=== PATIENT | male | born 1955 | race Caucasian/White ===

== ENCOUNTER 2023-01-07 12:00 | Emergency (ER) | payer MEDICARE, SELFPAY ==
[2023-01-07 12:03] VITALS: BP 134/83; PULSE 95; RESP 16; TEMP 37.1; O2SAT 99
--- NOTE | 2023-01-07 12:49 | ED.GENADUL_ITS ---
Discharge Plan Disposition Patient Disposition: Home Condition: Improving Discharge Details Clinical Impression: Anxiety Primary Care Provider: None,None ED Provider: Sameer Wasserman Home Meds and New Rx's Prescriptions: New clonazepam 0.5 mg tablet 0.5 mg PO ONCE PRN (Reason: panic attack(s)) Qty: 10 0RF Discharge Instructions Instructions: Anxiety (ED) Additional Instructions: Please follow-up with primary care team. Please return to the emergency department for any worsening symptoms Medical Decision Making 67-year-old male history of chronic peripheral neuropathy involving feet, has been self-medicating with tincture of CBD for some time, believes it may have caused her agitated state last week, she was hyperactive and cannot sleep, is having residual insomnia and anxiety. Does appear mildly dehydrated frail with dry skin. Patient is alert oriented interactive appropriate no SI no HI no delusions or hallucinations. Consider medication induced insomnia versus pain induced insomnia versus PTSD versus anxiety low suspicion for active intoxication or psychosis low suspicion for intracranial process such as hemorrhage edema or mass. Will obtain basic labs will provide hydration anxiolysis close reassessment 15: 23 patient resting comfortably feeling much better after meds and fluids. Spoke with patient's home health wellness nurse Rani phone number [phone] who will be visiting patient tomorrow for home visit. We are arranging primary care follow-up and he will be given a prescription for use as a rescue therapy for panic attacks. HPI General Date/Time Provider Initiated Documentation: 01/07/23 12:14 . HPI Narrative: 67-year-old male presents endorsing fatigue and chronic peripheral neuropathy. Has been taking hemp tincture and cannabis to self treat chronic peripheral neuropathy of bilateral feet. Was taking so much supplementation that he developed an agitated state last week in which he was hyperactive cannot sit still and very anxious. Denies SI denies HI. Lives alone, feels safe at home. Endorses restricted diet usually eats protein bars and drinks protein shake. Feeling better than he was last week however has not been able to rest due to re sidual anxiety and chronic neuropathy. Related Data Home Medications Medication Instructions Recorded Confirmed clonazepam 0.5 mg tablet 0.5 mg PO ONCE PRN panic attack(s) 01/07/23 #10 tabs Previous Rx's Medication Instructions Recorded clonazepam 0.5 mg tablet 0.5 mg PO ONCE PRN panic attack(s) 01/07/23 #10 tabs General Stated Complaint: Anxiety JERAMY: 3 Review of Systems Narrative: Review of Systems Constitutional: negative Eyes: negative ENT: negative Cardiovascular: negative Respiratory: negative Gastrointestinal: negative : negative Musculoskeletal: negative Skin: negative Neurologic: Neuropathy, insomnia Psych: negative PFSH All Active Problems (Updated 01/07/23 @ 15:26 by Sameer Wasserman MD) Anxiety (Chronic) Social History Smoking risk assessment performed?: No Exam Narrative Exam Narrative: Physical Examination General: alert, awake, cooperative, resting comfortably, no acute distress HEENT: normocephalic, atraumatic; PERRL, EOM intact, conjunctiva normal; no nasal discharge; moist mucous membranes, oral and pharyngeal mucosa normal, tolerating secretions Neck: supple, trachea midline; full ROM Chest: normal to inspection Respiratory: normal respiratory effort, speaking in full sentences, clear to auscultation, no wheezing, rales or rhonchi Cardiac: regular rate, regular rhythm, S1S2 intact, no murmurs rubs or gallops GI: abdomen soft, non-tender, non-distended; no palpable mass or hepatosplenomegaly Skin: dry Neuro: AAOx3, normal speech, moving all extremities Psych: Appropriate mood and affect; no SI, no HI Course Vital Signs Vital signs: Vital Signs Temperature 37.1 C 01/07/23 12:03 Pulse 95 H 01/07/23 12:03 Respiratory Rate 16 01/07/23 12:03 Blood Pressure 134/83 01/07/23 12:03 Pulse Oximetry 99 01/07/23 12:03 Temperature 37.1 C 01/07/23 12:03 Temperature Source Skin 01/07/23 12:03 Pulse 95 H 01/07/23 12:03 Respiratory Rate 16 01/07/23 12:03 Blood Pressure 134/83 01/07/23 12:03 Pulse Oximetry 99 01/07/23 12:03 Oxygen Delivery Method Room Air 01/07/23 12:03 Oxygen Flow Rate 0 01/07/23 12:03 Pain Level 10 01/07/23 12:03
[2023-01-07 12:57] LABS: Abs Immature Grans 0.05 10^3/uL (0.0-0.06); Absolute Basophil Count 0.01 10^3/uL (0.0-0.2); Absolute Eosinophil Count 0.06 10^3/uL (0.0-0.7); Absolute Lymphocyte Count 0.81 10^3/uL (1.2-3.4); Absolute Monocyte Count 0.36 10^3/uL (0.1-0.8); Absolute Neutrophil Count 3.62 10^3/uL (1.2-6.7); Basophils % 0.2; Eosinophils % 1.2; HCT 38.1 % (40.0-50.0); HGB 13.6 g/dL (13.5-17.5); Lymphocytes % 16.5; MCH 31.6 pg (27.0-33.0); MCHC 35.7 % (32.0-36.0); MCV 89 fL (80-95); MPV 9.5 fL (8.0-11.0); Monocytes % 7.3; Neutrophils % 73.8; Platelet Count 152 10^3/uL (130-400); RDW 13.5 % (11.8-14.1); RDW-SD 43.4 fL; WBC 4.91 10^3/uL (4.4-10.8)
[2023-01-07] MEDS: ACETAMINOPHEN 1,000 MG/100 ML BTL 400 MG IVPB (13:00)
[2023-01-07] MEDS: LORazepam 2 MG/ML VIAL 1 MG IVP (13:02)
[2023-01-07] MEDS: Normal Saline 1,000 ML 1000 ML IV (13:03)
[2023-01-07 13:12] LABS: ALT 51 U/L (16-63); AST 37 U/L (15-37); Albumin 3.3 g/dL (3.4-5.0); Alkaline Phosphatase 104 U/L (46-116); Anion Gap 6.6 mmol/L (3-11); BUN 17 mg/dL (7-18); Bilirubin, Total 0.4 mg/dL (0.2-1.0); CO2 26.4 mmol/L (21.0-32.0); CREATININE 0.7 mg/dL (0.70-1.30); Calcium 8.9 mg/dL (8.5-10.1); Chloride 98 mmol/L (98-107); Estimated GFR 100.99 (mL/min/1.73m2); Glucose 446 mg/dL (74-106); Potassium 3.9 mmol/L (3.5-5.1); Sodium 131 mmol/L (136-145); Total Protein 6.7 g/dL (6.4-8.2)
[2023-01-07 15:39] VITALS: BP 134/89; PULSE 78; RESP 18; TEMP 36.7; O2SAT 99
--- NOTE | 2023-01-08 11:51 | NUR.NOTE ---
Nursing Note: Accessed pt chart to check the disposition of discharge paperwork and prescription.
--- NOTE | 2023-01-08 12:03 | NUR.NOTE ---
Nursing Note: in chart to check on prescription
--- NOTE | 2023-01-08 16:11 | PDOC.CMACT ---
Date of service: 01/08/23 Time of Service: 16:11 Care Management Activity Note Activity Note Text Activity Note Text: José Miguel is seen in the ED for anxiety. At the request of ED provider, LINDSEY coordinates a referral to Clover Gonzales MD, of [facility], t-doc, to assist José Miguel in obtaining a follow up appointment and in establishing care with a PCP. He has Medicare for insurance.
== END 2023-01-07 15:50 | disposition home or self-care (01) ==
PROVIDERS: Emergency Provider Emergency Medicine
DX: F41.9 Anxiety disorder, unspecified (principal); G62.9 Polyneuropathy, unspecified
CPT/HCPCS: 80053; 96361; 96374; 96375; 85025; 99282; 99283; J0131; J2060

== ENCOUNTER 2023-01-16 12:16 | Emergency (ER) | payer MEDICARE, SELFPAY ==
[2023-01-16 12:19] VITALS: BP 126/85; PULSE 102; RESP 16; TEMP 36.7; O2SAT 98
[2023-01-16 12:53] VITALS: RESP 18
--- NOTE | 2023-01-16 12:53 | W.ED.GENAD ---
Discharge Plan Discharge Details Chief Complaint: Anxiety Primary Care Provider: Samantha,Local ED Provider: Jayson Spain Home Meds and New Rx's Prescriptions: No Action clonazepam 0.5 mg tablet 0.5 mg PO ONCE PRN (Reason: panic attack(s)) Qty: 10 0RF Medical Decision Making Patient is medically cleared for for psychiatric evaluation using smart criteria. Patient was evaluated by mental health services. He contracted for safety. He will be discharged home. He will follow-up with mental health services on as planned HPI General Date/Time Provider Initiated Documentation: 01/16/23 12:31. HPI Narrative: 67 male present to the emergency room via EMS because of anxiety. He states that he has to deal with chronic pain secondary to his neuropathy of his legs. And as such took too much hemp extract earlier this month with me him having an anxiety attack. Since then he has been having anxiety. He was seen emergency department 3 days ago for lower similar symptoms. Brought in by mental health services were involved at the time. The patient states that he really needs to talk to both services again because he cannot deal with anxiety. Related Data Home Medications Medication Instructions Recorded Confirmed clonazepam 0.5 mg tablet 0.5 mg PO ONCE PRN panic attack(s) 01/07/23 01/16/23 #10 tabs Previous Rx's Medication Instructions Recorded clonazepam 0.5 mg tablet 0.5 mg PO ONCE PRN panic attack(s) 01/07/23 #10 tabs Allergies Allergy/AdvReac Type Severity Reaction Status Date / Time No Known Allergies Allergy Unverified 01/16/23 12:23 General Stated Complaint: Anxiety JERAMY: 4 Review of Systems Narrative: 10 point review of systems is negative unless otherwise specified in the review of systems [facility] All Active Problems (Updated 01/07/23 @ 15:26 by Sameer Wasserman MD) Anxiety (Chronic) Social History Smoking/Tobacco Use Status: Current every day Tobacco Type: cigarettes Smoking risk assessment performed?: Yes Alcohol Intake: never Drug use: Daily Substance use type: marijuana Exam Narrative Exam Narrative: Awake alert oriented x3, no acute distress pleasant cooperative. Thin PERRL EOMI MMM Chest is clear to auscultation bilaterally Heart regular rhythm rate Skin no rashes Neuro 2-12 grossly intact Psych good affect. Positive anxiety. Course Vital Signs Vital signs: Vital Signs Temperature 36.7 C 01/16/23 12:19 Pulse 102 H 01/16/23 12:19 Respiratory Rate 16 01/16/23 12:19 Blood Pressure 126/85 01/16/23 12:19 Pulse Oximetry 98 01/16/23 12:19 Temperature 36.7 C 01/16/23 12:19 Temperature Source Temporal Artery Scan 01/16/23 12:19 Pulse 102 H 01/16/23 12:19 Respiratory Rate 16 01/16/23 12:19 Respiratory Effort Normal 01/16/23 12:22 Blood Pressure 126/85 01/16/23 12:19 Blood Pressure Position Sitting 01/16/23 12:19 Pulse Oximetry 98 01/16/23 12:19 Oxygen Delivery Method Room Air 01/16/23 12:19 Oxygen Flow Rate 0 01/16/23 12:19 Pain Level 0 01/16/23 12:19
== END 2023-01-16 15:34 | disposition home or self-care (01) ==
PROVIDERS: Emergency Provider Emergency Medicine
DX: F41.9 Anxiety disorder, unspecified (principal); G57.93 Unspecified mononeuropathy of bilateral lower limbs; G89.29 Other chronic pain
CPT/HCPCS: 99283

== ENCOUNTER 2023-01-19 08:10 | Emergency (ER) | payer MEDICARE, MEDICAID, SELFPAY ==
[2023-01-19] VITALS (8 sets, daily range): BP systolic 105–126; BP diastolic 60–76; PULSE 83–109; RESP 13–23; O2SAT 98–99
--- NOTE | 2023-01-19 08:10 | W.ED.GENAD ---
Discharge Plan Disposition Patient Disposition: Home Discharge Details Clinical Impression: Anxiety, Sinus tachycardia, Normocytic anemia, Acute hyperglycemia, Ketonuria, Glucosuria Primary Care Provider: Samantha,Local ED Provider: Danielito Jamil Home Meds and New Rx's Prescriptions: New hydroxyzine HCl 25 mg tablet 25 mg PO BID PRNQty: 10 0RF Discontinued clonazepam 0.5 mg tablet 0.5 mg PO ONCE PRN (Reason: panic attack(s)) Qty: 10 0RF Patient Comments: Prescription ended Discharge Instructions Instructions: Anxiety (ED) Additional Instructions: Please read all of the information that accompanies these instructions. You were seen in the emergency department for your anxiety. Your urinalysis showed no sign of infection. Please schedule an appointment with your primary care provider later this week. Please return to the emergency department if develop any shortness of breath or fevers. A prescription has been sent in for hydroxyzine which is a different medicine to take for anxiety. Medical Decision Making This is a cachectic, overall well-appearing normothermic and mildly tachycardic 67-year-old male with 3 recent visits in the setting of anxiety. Patient has no suicidal nor homicidal ideation. No indication for behavioral health screening. He was reportedly hyperglycemic and has reportedly a remote history of diabetes so will ensure that he does not have DKA. On the monitor he is in a sinus tachycardia and given no chest pain no indication for ECG. No pain out of proportion to suggest necrotizing soft tissue infection. No cough nor shortness of breath nor hypoxia to suggest pneumonia. No nausea nor vomiting to suggest intra-abdominal infection soft nontender abdomen so we will defer CT scan at this point in time. Patient reports that he does have a primary care provider with whom he plans to have a follow-up appointment in the coming week. He has not had anything to eat for the past several days and has only had popped tarts so we will provide him with a regular diet and reassess. He is on a short course of outpatient clonazepam so we will provide him with 1 dose of clonazepam now but discharged him on hydroxyzine given age. Given urinary frequency will obtain a urinalysis. According to [facility], PDMP record, patient has 1 prescription of clonazepam written approximately 12 days ago for 10 tablets. Given this short duration and low-dose and the patient's overall presentation my suspicion is exceedingly low for withdrawal from benzodiazepines. 9 AM CBC with very mild normocytic anemia but no leukocytosis nor thrombocytopenia. 9:36 AM Basic metabolic panel with very mild hyponatremia and mildly elevated BUN at 29. Normal bicarbonate. No anion gap. Not consistent with DKA. Hyperglycemia not 423 mg/dL. Mild hypokalemia. Patient and I discussed avoiding sweets and eating a broad range of diets. 10 AM Urinalysis showed ketonuria and glucosuria but nitrite negative. Tachycardia resolved with oral and IV fluids. Patient understood return indications including inability to tolerate p.o. any chest pain or any fevers. Sent him a short course of hydroxyzine and discharged with empiric trial of expectant outpatient management. Chronic conditions affecting the care of the patient: Anxiety History obtained from an outside historian: Paramedics External [place] [facility] [place] Medications: Clonazepam Social determinants of health affecting disposition: Lives alone has not recently seen a PCP Management discussed with: N/A Treatment/interventions considered: Hospitalization but deferred Response to therapies provided: Improved following clonazepam HPI General Date/Time Provider Initiated Documentation: 01/19/23 08:28. HPI Narrative: This is a 67-year-old male with several recent visits in the setting of anxiety now arriving via EMS in the setting of anxiety. Patient reportedly ran out of his clonazepam this morning. He is due to see a primary care provider in the next week. He reports that he has been increasingly anxious recently. He has been smoking cannabis and eating pop tarts. He says that when he closes his eyes he experiences waves of paranoia. He denies suicidal homicidal ideation. Paramedics report that his fingerstick blood glucose was 447. He is a daily tobacco smoker but only occasionally drinks ethanol. He denies IV drugs. He said no recent fevers cough chills chest pain nausea nor vomiting. He does say that he has been urinating more frequently recently with decreased volume of urination. Related Data Home Medications Medication Instructions Recorded Confirmed hydroxyzine HCl 25 mg tablet 25 mg PO BID PRN #10 tabs 01/19/23 Previous Rx's Medication Instructions Recorded hydroxyzine HCl 25 mg tablet 25 mg PO BID PRN #10 tabs 01/19/23 Allergies Allergy/AdvReac Type Severity Reaction Status Date / Time No Known Allergies Allergy Unverified 01/19/23 08:17 General JERAMY: 4 PFSH All Active Problems (Updated 01/19/23 @ 10:06 by Danielito Jamil MD) Anxiety (Chronic) Anxiety (Chronic) Sinus tachycardia (Acute) Normocytic anemia (Acute) Acute hyperglycemia (Acute) Ketonuria (Acute) Glucosuria (Acute) Social History Smoking/Tobacco Use Status: Current every day Tobacco Type: cigarettes Smoking risk assessment performed?: Yes Alcohol Intake: never Drug use: Daily Substance use type: marijuana Do you feel safe at home: Yes Do you feel safe in your relationship?: Yes Exam Narrative Exam Narrative: General: Well-appearing in no acute distress speaking in complete sentences. Head: Normocephalic, atraumatic. Eye: Pupils equal, round reactive to light. Extraocular eye movements intact. No conjunctival injection. No scleral icterus. Ear, nose, mouth, throat: Grossly normal inspection. Normal voice, handling secretions normally. Neck: Trachea midline. Cardiovascular: Well-perfused distal extremities. Rapid regular rate. Warm distal extremities with 2+ PT and DP pulses. Respiratory: Nonlabored respiration. Clear lungs bilaterally. Gastrointestinal: Nondistended abdomen. Musculoskeletal: No edema. Moving all 4 extremities spontaneously. No significant lower extremity pitting edema. Skin: Normal for age and race, grossly normal temperature and turgor. No acute rash. Neurologic: Alert and appropriate, no apparent acute deficits. Psychiatric: Mood and manner are appropriate. Grooming and personal hygiene are appropriate.
[2023-01-19 09:00] LABS: Abs Immature Grans 0.03 10^3/uL (0.0-0.06); Absolute Basophil Count 0.02 10^3/uL (0.0-0.2); Absolute Eosinophil Count 0.03 10^3/uL (0.0-0.7); Absolute Monocyte Count 0.37 10^3/uL (0.1-0.8); Absolute Neutrophil Count 3.86 10^3/uL (1.2-6.7); Basophils % 0.4; Eosinophils % 0.6; HCT 38.1 % (40.0-50.0); HGB 13.4 g/dL (13.5-17.5); Immature Grans % 0.6; Lymphocytes % 17.3; MCHC 35.2 % (32.0-36.0); MCV 91 fL (80-95); MPV 9.5 fL (8.0-11.0); Monocytes % 7.1; Platelet Count 136 10^3/uL (130-400); RBC 4.19 10^6/uL (4.36-5.78); RDW 13.4 % (11.8-14.1); RDW-SD 45.2 fL; WBC 5.21 10^3/uL (4.4-10.8)
[2023-01-19] MEDS: Normal Saline 1,000 ML 500 ML IV (09:00)
[2023-01-19] MEDS: clonazePAM 0.5 MG TAB PO (09:00)
[2023-01-19 09:32] LABS: Anion Gap 9.6 mmol/L (3-11); BUN 29 mg/dL (7-18); CO2 25.4 mmol/L (21.0-32.0); CREATININE 0.7 mg/dL (0.70-1.30); Calcium 8.4 mg/dL (8.5-10.1); Chloride 98 mmol/L (98-107); Estimated GFR 100.99 (mL/min/1.73m2); Glucose 423 mg/dL (74-106); Potassium 4.2 mmol/L (3.5-5.1); Sodium 133 mmol/L (136-145)
[2023-01-19 09:58] LABS: Bilirubin Negative (Negative); Blood Negative (Negative); Clarity Clear (Clear); Glucose >=1000 mg/dL (Negative); Ketones 15 mg/dL (Negative); Leukocyte Esterase Negative (Negative); Nitrite Negative (Negative); Urobilinogen 0.2 mg/dL (Up to 0.2)
== END 2023-01-19 10:35 | disposition home or self-care (01) ==
PROVIDERS: Emergency Provider Emergency Medicine
DX: F41.9 Anxiety disorder, unspecified (principal); R00.0 Tachycardia, unspecified; D64.9 Anemia, unspecified; E16.1 Other hypoglycemia; R82.4 Acetonuria; R81 Glycosuria; Z72.0 Tobacco use
CPT/HCPCS: 80048; 96360; 96361; 99284; 81003; 85025

== ENCOUNTER 2023-02-02 08:54 | Emergency (ER) | payer MEDICARE, MEDICAID, SELFPAY ==
[2023-02-02] VITALS (31 sets, daily range): BP systolic 113–153; BP diastolic 69–111; PULSE 90–104; RESP 16–18; TEMP 36.4–36.8; O2SAT 79–100
--- NOTE | 2023-02-02 08:55 | W.ED.GENAD ---
Discharge Plan Discharge Details Chief Complaint: Anxiety Clinical Impression: Anxiety, Uncontrolled type 2 diabetes mellitus with hyperglycemia Primary Care Provider: None,None ED Provider: Danielito Jamil Home Meds and New Rx's Prescriptions: No Action hydroxyzine HCl 25 mg tablet 25 mg PO BID PRNQty: 10 0RF Medical Decision Making This is a cachectic, overall well-appearing normothermic and mildly tachycardic 67-year-old male with 4 recent visits in the setting of anxiety.? Patient has no suicidal nor homicidal ideation.? Given recent visit last month I spoke with Heather from [employer] and have asked her to complete a screening exam.? He was reportedly hyperglycemic and has reportedly a remote history of diabetes so will ensure that he does not have DKA.? On the monitor his tachycardia resolved. We will provide him with a regular diet but defer ECG.? No pain out of proportion to suggest necrotizing soft tissue infection.? No cough nor shortness of breath nor hypoxia to suggest pneumonia.? No nausea nor vomiting to suggest intra-abdominal infection so we will defer CT scan at this point in time.? Patient reports that he does have a primary care provider with whom he plans to have a follow-up appointment in the coming week.? He has not had anything to eat for the past several days so we will provide him with a regular diet and reassess.? He is on a short course of outpatient hydroxyzine so we will redose this in the ED.?No dysuria nor urinary frequency to suggest benefit from urinalysis.? 9:35 AM CBC with no anemia thrombocytopenia nor leukocytosis. Venous blood gas with no acidemia nor hypercarbia. Tachycardia resolved without intervention in the ED.Basic metabolic panel with very mild hyponatremia and hypokalemia. No anion gap. Mildly elevated BUN similar to prior. Hyperglycemia but normal bicarbonate not consistent with DKA. Normal calcium. 10:15 AM I spoke with Ilya Vera from [facility] [employer] who reported the patient would be voluntary for placement. He will attempt to find the patient geriatric placement. We will complete a med rec. 10:25 AM Patient reportedly takes no medications beyond vitamin infused hemp and cannabis daily. Given his hyperglycemia and lack of PCP will add on an A1c to determine whether or not patient requires initiation of treatment for diabetes with metformin. 11:15 AM Patient's hemoglobin A1c returned at 12.2%. He does not have a PCP in our system nor in the [facility] [place]. I have asked health loading unit operator Lindsay to call on-call PCP to best initiate treatment for his type 2 diabetes with hyperglycemia but not DKA. 11:35 AM I was in touch with a nurse from from Dr. Gonzales's office. She will have a provider call me back. This patient is reportedly going to be seen by Dr. Milton on Thursday of this week. 12:15 PM I spoke with Dr. Milton a primary care provider. She advised starting the patient on 5 units of daily glargine along with metformin 500 mg twice daily. I will ask health loading unit operator Lindsay to have a certified breastfeeding educator come and see the patient while he was in the ED. She advised that she will be seeing the patient later this week. She advised that if the patient was not comfortable giving himself insulin or not reliable to do so that starting him on a sulfonylurea such as glipizide might be another reasonable alternative. We will dose glargine and metformin in the ED. 3:15 PM No active behavioral issues on my shift. Patient is pending placement. He is being considered by [facility] and would still at [facility]. We will sign patient out to Dr. Arizmendi. Chronic conditions affecting the care of the patient: Anxiety History obtained from an outside historian: Paramedics External record [place] [facility] Medications: Clonazepam Social determinants of health affecting disposition: Lives alone has not recently seen a PCP Management discussed with: N/A Treatment/interventions considered: Hospitalization but deferred Response to therapies provided: Improved following clonazepam HPI General Date/Time Provider Initiated Documentation: 02/02/23 08:55. HPI Narrative: This is a 67-year-old male with multiple recent visits in the setting of increased anxiety now arriving via EMS with increased anxiety. Patient reports that since midnight last night he has felt anxious. He has taken his hydroxyzine but this did not help. He he does not feel suicidal nor homicidal. He denies visual and auditory hallucinations. He denies nausea vomiting chest pain fevers chills headache and shortness of breath. He denies auditory and visual hallucinations. He denies urinary frequency. His fingerstick blood glucose from paramedics was in the 300s. He has a history of diabetes controlled by diet. He is a daily tobacco user but denies routine ethanol and illicits. Related Data Home Medications Medication Instructions Recorded Confirmed hydroxyzine HCl 25 mg tablet 25 mg PO BID PRN #10 tabs 01/19/23 02/02/23 Previous Rx's Medication Instructions Recorded hydroxyzine HCl 25 mg tablet 25 mg PO BID PRN #10 tabs 01/19/23 Allergies Allergy/AdvReac Type Severity Reaction Status Date / Time No Known Allergies Allergy Unverified 02/02/23 10:23 General JERAMY: 4 PFSH All Active Problems (Updated 02/02/23 @ 11:15 by Danielito Jamil MD) Anxiety (Chronic) Anxiety (Chronic) Sinus tachycardia (Acute) Normocytic anemia (Acute) Acute hyperglycemia (Acute) Ketonuria (Acute) Glucosuria (Acute) Uncontrolled type 2 diabetes mellitus with hyperglycemia (Acute) Social History Smoking/Tobacco Use Status: Current every day Tobacco Type: cigarettes Smoking risk assessment performed?: Yes Alcohol Intake: current Alcohol Intake frequency: holidays/special occasions only Drug use: Daily Substance use type: marijuana Do you feel safe at home: Yes Do you feel safe in your relationship?: Yes Exam Narrative Exam Narrative: General: Cachectic-appearing in no acute distress speaking in complete sentences. Head: Normocephalic, atraumatic. Eye: Extraocular eye movements intact. No conjunctival injection. No scleral icterus. Ear, nose, mouth, throat: Grossly normal inspection. Normal voice, handling secretions normally. Neck: Trachea midline. Cardiovascular: Well-perfused distal extremities. Respiratory: Nonlabored respiration. Gastrointestinal: Nondistended abdomen. Musculoskeletal: No edema. Moving all 4 extremities spontaneously. Skin: Normal for age and race, grossly normal temperature and turgor. No acute rash. Neurologic: Alert and appropriate, no apparent acute deficits. Psychiatric: Mood and manner are appropriate. No flight of ideas. No pressured speech. No visual nor auditory hallucinations. Disheveled appearing.
[2023-02-02 09:19] LABS: BE (Venous) 2 mmol/L (-2-3); HCO3 (Venous) 27 mmol/L (23-28); O2 Sat (Venous) 66 %; TCO2 (Venous) 25 mmol/L (24-29); pCO2 (Venous) 48 mmHg (41-51); pH (Venous) 7.36 (7.31-7.41); pO2 (Venous) 34 mmHg
[2023-02-02] MEDS: Normal Saline 500 ML IV (09:19)
[2023-02-02] MEDS: hydrOXYzine HCL 25 MG TAB PO (09:19)
[2023-02-02 09:21] LABS: Abs Immature Grans 0.04 10^3/uL (0.0-0.06); Absolute Basophil Count 0.03 10^3/uL (0.0-0.2); Absolute Eosinophil Count 0.05 10^3/uL (0.0-0.7); Absolute Lymphocyte Count 1.43 10^3/uL (1.2-3.4); Absolute Monocyte Count 0.41 10^3/uL (0.1-0.8); Absolute Neutrophil Count 2.98 10^3/uL (1.2-6.7); Basophils % 0.6; HCT 40.9 % (40.0-50.0); HGB 14.6 g/dL (13.5-17.5); Immature Grans % 0.8; Lymphocytes % 28.9; MCH 31.6 pg (27.0-33.0); MCHC 35.7 % (32.0-36.0); MCV 89 fL (80-95); MPV 9.5 fL (8.0-11.0); Monocytes % 8.3; Neutrophils % 60.4; Platelet Count 143 10^3/uL (130-400); RBC 4.62 10^6/uL (4.36-5.78); RDW 13.2 % (11.8-14.1); RDW-SD 43.2 fL; WBC 4.94 10^3/uL (4.4-10.8)
[2023-02-02 09:36] LABS: Anion Gap 8.3 mmol/L (3-11); BUN 26 mg/dL (7-18); CO2 26.7 mmol/L (21.0-32.0); CREATININE 0.7 mg/dL (0.70-1.30); Calcium 9.1 mg/dL (8.5-10.1); Chloride 97 mmol/L (98-107); Estimated GFR 100.99 (mL/min/1.73m2); Glucose 360 mg/dL (74-106); Potassium 3.3 mmol/L (3.5-5.1); Sodium 132 mmol/L (136-145)
[2023-02-02 11:07] LABS: Hemoglobin A1C 12.2 % (<5.7)
--- NOTE | 2023-02-02 16:39 | W.EDPROG ---
Date of service: 02/02/23 Time of Service: 16:39 Medical Decision Making Patient complaining of some leg pain which he reported was consistent with prior neuropathy. I gave him 5 mg of oxycodone. Sign Out Sign Out Data: Sign Out Comment: Patient is pending [facility] transfer and education with a social worker delinquency prevention in the setting of type 2 diabetes not on any medications. Patient has been updated on likelihood of behavioral health transfer. Last updated by Danielito Jamil MD at 02/02/23 15:18 Sign Out Comment: Pending patient pending [facility] placement. Diabetes meds ordered. Last updated by Danielito Jamil MD at 02/02/23 16:39 Discharge Plan Discharge Details Chief Complaint: Anxiety Clinical Impression: Anxiety, Uncontrolled type 2 diabetes mellitus with hyperglycemia Primary Care Provider: None,None ED Provider: Danielito Jamil Home Meds and New Rx's Prescriptions: No Action hydroxyzine HCl 25 mg tablet 25 mg PO BID PRNQty: 10 0RF
[2023-02-02] MEDS: metFORMIN 500 MG TAB PO (16:51)
[2023-02-02] MEDS: oxyCODONE 5 MG TAB PO (16:51)
--- NOTE | 2023-02-02 16:54 | PDOC.CMSAFE ---
Date of service: 02/02/23 Time of Service: 16:54 Care Management Safety Plan Status Status: Voluntary Reason for Wait Reason for Wait: Inpatient Admission Safety Plan Safety Plan: José Miguel is a 67 year old man who presented to the ED with extreme anxiety. He is seeking voluntary psychiatric hospitalization for this. CM will respond to ED to assess patient after patient has been medically cleared and assessed by screener. If screener deems patient meets criteria for psychiatric stabilization CM will facilitate interdepartmental huddle with [facility] screener for safety planning considerations and meet with patient to review [facility] policy and safety plan, establish individual wishes for treatment and maintain patient rights. In the interim; please note safety plan below to guide patient care while awaiting further assessment in the ED.? SAFETY PLAN: 1. Will remain on suicide precautions and in paper clothes.? 2. Will remain in room under direct supervision of one-on-one staff at all times provided by ZELDA, COUPON MANIFEST CLERK abrasive water jet cutter operator. 3. May have paper cups, plates, finger foods as well as a cardboard spoon with which to eat meals. 4. Follow [facility] Management of the Admitted Behavioral Health Patient policy. 5. Personal care: Comfort bath system only at this time. 6. Bathroom privileges: with escort in ED. Available in room without limitation on Med/Surg. 6. No personal belongings at this time; per RN discretion. 7. No visitors at this time. 8. Phone contact limited to legal contact at this time. 9. Activities: Music tablet per RN discretion. Med/Surg: Television and remote available at RN discretion. 10. Due to VOLUNTARY status, if patient wishes to leave [facility], staff will contact [facility] Crisis Screener ([phone]) and On-Call Tray Worker ([phone]) as soon as possible. In the event of elopement, notify [place] [employer] ([phone]). ?If deemed appropriate for inpatient psychiatric care, safety plan will be established with patient, and care team, to adhere to patient goals, identify restrictions based on behavioral status, address nutrition, and determine allowed personal belongings, tools for hygiene and personal care. As well plan will
[2023-02-02] MEDS: Insulin Glargine 300 UNITS/3 ML PEN SC (22:27)
--- NOTE | 2023-02-03 09:03 | PDOC.CMSAFE ---
Date of service: 02/03/23 Time of Service: 09:03 Care Management Safety Plan Status Status: Voluntary Reason for Wait Reason for Wait: Inpatient Admission Safety Plan Safety Plan: José Miguel was evaluated and found to meet criteria for stabilization due to persistent anxiety. He is awaiting placement at geriatric psychiatric facility; [facility] or [facility]. At this time, the interdisciplinary team does not find José Miguel to require a safety plan, or privilege limitations. He does not have a one on one observer, and is in his own clothing. Interim safety plan discontinued. Ultimately, José Miguel refused to transfer to [facility] and returned home, per [facility].
[2023-02-03] MEDS: metFORMIN 500 MG TAB PO (09:46)
--- NOTE | 2023-02-03 11:01 | ED.PROG_ITS ---
Date of service: 02/03/23 Time of Service: 11:01 Medical Decision Making Pt had plan to go to voluntary placement at [facility] in [place] for anxiety but he decided he didn't want to go there. Screened by [facility] and pt wants to go home now and given he has no si/hi can't keep him against the will. Will have him f/u with [facility] and his pcp, return precautions given. He is not comfortable administering his own insulin so will start on metformin and he will f/u with his pcp Sign Out Sign Out Data: Sign Out Comment: Patient is pending [facility] transfer and education with a director graphics in the setting of type 2 diabetes not on any medications. Patient has been updated on likelihood of behavioral health transfer. Last updated by Danielito Jamil MD at 02/02/23 15:18 Sign Out Comment: Pending patient pending [facility] placement. Diabetes meds ordered. Last updated by Danielito Jamil MD at 02/02/23 16:39 Discharge Plan Disposition Patient Disposition: Home Condition: Stable Discharge Details Clinical Impression: Anxiety, Uncontrolled type 2 diabetes mellitus with hyperglycemia Primary Care Provider: None,None ED Provider: Sergio Ansari Home Meds and New Rx's Prescriptions: New metformin 500 mg tablet 500 mg PO BID Qty: 30 0RF Continued hydroxyzine HCl 25 mg tablet 25 mg PO BID PRNQty: 10 0RF Discharge Instructions Instructions: Diabetic Hyperglycemia (ED) Additional Instructions: follow up with your primary care provider within 1 week, you may need additional medications for your diabetes if you feel more ill, have difficulty breathing or severe pain return to the emergency department
== END 2023-02-03 11:11 | disposition home or self-care (01) ==
PROVIDERS: Emergency Medicine; Emergency Provider Emergency Medicine
DX: F41.9 Anxiety disorder, unspecified (principal); E11.65 Type 2 diabetes mellitus with hyperglycemia
CPT/HCPCS: 36415; 36416; 80048; 82805; 82962; 96361; 96372; 99284; 83036; 85025

== ENCOUNTER 2023-02-19 14:48 | Emergency (ER) | payer MEDICARE, SELFPAY ==
[2023-02-19 14:52] VITALS: BP 126/75; PULSE 100; RESP 18; TEMP 36.9; O2SAT 98
--- NOTE | 2023-02-19 15:15 | DI.RAD_ITS ---
Exam(s) XR CHEST 2V PA LATERAL EXAM: XR CHEST 2V PA LATERAL CLINICAL HISTORY: fatigue TECHNIQUE: 2D digital imaging was performed. COMPARISON: No exams were available for comparison FINDINGS: HEART: Normal size. Aorta: Not dilated. PULMONARY VASCULATURE: Normal. LUNGS: Hyperinflated. Infiltrate in the anteromedial aspect of the right upper lobe. No additional infiltrates. PLEURAL SPACE: No pleural effusion or pneumothorax. BONE:Unremarkable for age. IMPRESSION: Right upper lobe pneumonia. DATA REPOSITORY: RADIATION DOSE DELIVERED:
--- NOTE | 2023-02-19 15:16 | ED.GENADUL_ITS ---
Discharge Plan Disposition Patient Disposition: Home Condition: Improving Discharge Details Clinical Impression: Pneumonia Primary Care Provider: Unknown,Unknown ED Provider: Sameer Wasserman Home Meds and New Rx's Prescriptions: New amoxicillin-pot clavulanate 875-125 mg tablet 1 tab PO BID 7 Days Qty: 14 0RF azithromycin 250 mg tablet 250 mg PO DAILY 4 Days Qty: 4 0RF Rx Instructions: start on day 2 of therapy No Action hydroxyzine HCl 25 mg tablet 25 mg PO BID PRNQty: 10 0RF metformin 500 mg tablet 500 mg PO BID Qty: 30 0RF clonazepam 0.5 mg tablet 0.5 mg PO PRN PRN Patient Comments: TAKE 1 TABLET NEEDED FOR PANIC ATTACKS Discharge Instructions Instructions: Pneumonia (ED) Additional Instructions: Please follow-up with primary care physician. Please take medications as prescribed. Medical Decision Making 67-year-old male history of diabetes and anxiety, noncompliant with medications due to medication not being delivered. Presents with generalized fatigue feeling unwell. Would like to stay a couple days in the hospital. Lives independently and hopes to continue to live independently, was offered a [facility] bed during his last visit however declined. No SI no HI no delusions no hallucinations. Likely component of chronic depression and anxiety. Patient has been subsisting on protein shakes and frozen food. Noted blood sugars in the 400s. Consider hyperosmolar state versus early DKA less likely given no nausea vomiting versus dehydration versus electrolyte abnormality versus infectious process versus less likely ACS intracranial process or infectious etiology such as pneumonia or UTI. Given age, frailty evidence of mild to moderate dehydration will obtain labs chest x-ray will provide fluid hydration, will determine if patient needs hospitalization for medical need otherwise will likely discharge home with follow-up for resources 17: 41 evidence of right upper lobe pneumonia. Given postop care, frailty, dry oral mucosa poor skin turgor evidence of dehydration clinically and known medication noncompliance I have called to have patient admitted for hydration and continued antibiotic therapy. Hospitalist and care management team to review patient's case and determine appropriateness for admission 19: 21 given nontoxic state, no hypoxia no respiratory distress patient will be discharged. Care management consultation has been requested. We will work on arranging primary care follow-up with patient. HPI General Date/Time Provider Initiated Documentation: 02/19/23 15:01 . HPI Narrative: 67-year-old male history of diabetes, generally unwell, noted that his blood sugars been elevated, has not been taking his metformin and clonazepam as his medications were not delivered to the house. During last visit patient was offered inpatient treatment for chronic anxiety depression at a [facility] facility however patient declined. Patient denies SI HI delusions or hallucinations. Does have chronic anxiety. Lives independently, children live remote. Patient has been subsisting mainly on protein shakes and frozen fruit. Wants to continue to live independently, however he feels as if he needs to rest in the hospital for several days Related Data Home Medications Medication Instructions Recorded Confirmed hydroxyzine HCl 25 mg tablet 25 mg PO BID PRN #10 tabs 01/19/23 02/19/23 metformin 500 mg tablet 500 mg PO BID #30 tabs 02/03/23 02/19/23 amoxicillin 875 mg-potassium 1 tab PO BID 7 days #14 tabs 02/19/23 clavulanate 125 mg tablet azithromycin 250 mg tablet 250 mg PO DAILY 4 days #4 tabs 02/19/23 clonazepam 0.5 mg tablet 0.5 mg PO PRN PRN 02/19/23 02/19/23 Previous Rx's Medication Instructions Recorded hydroxyzine HCl 25 mg tablet 25 mg PO BID PRN #10 tabs 01/19/23 metformin 500 mg tablet 500 mg PO BID #30 tabs 02/03/23 amoxicillin 875 mg-potassium 1 tab PO BID 7 days #14 tabs 02/19/23 clavulanate 125 mg tablet azithromycin 250 mg tablet 250 mg PO DAILY 4 days #4 tabs 02/19/23 Allergies Allergy/AdvReac Type Severity Reaction Status Date / Time No Known Allergies Allergy Unverified 02/19/23 15:00 General Stated Complaint: GenMedical JERAMY: 3 Review of Systems Narrative: Review of Systems Constitutional: negative Eyes: negative ENT: negative Cardiovascular: negative Respiratory: negative Gastrointestinal: negative : negative Musculoskeletal: negative Skin: negative Neurologic: negative Psych: negative PFSH All Active Problems (Updated 02/19/23 @ 19:22 by Sameer Wasserman MD) Uncontrolled type 2 diabetes mellitus with hyperglycemia (Acute) Pneumonia (Acute) Social History Smoking/Tobacco Use Status: Current every day Tobacco Type: cigarettes Years smoked: 55 Smoking risk assessment performed?: Yes Alcohol Intake: current Alcohol Intake frequency: holidays/special occasions only Drug use: Occasionally Substance use type: marijuana Do you feel safe at home: Yes Do you feel safe in your relationship?: Yes Exam Narrative Exam Narrative: Physical Examination General: alert, awake, cooperative, resting comfortably, no acute distress HEENT: normocephalic, atraumatic; PERRL, EOM intact, conjunctiva normal; no nasal discharge; dry oral mucosa Neck: supple, trachea midline; full ROM Chest: normal to inspection Respiratory: normal respiratory effort, speaking in full sentences, clear to auscultation, no wheezing, rales or rhonchi Cardiac: regular rate, regular rhythm, S1S2 intact, no murmurs rubs or gallops GI: abdomen soft, non-tender, non-distended; no palpable mass or hepatosplenomegaly Skin: no lesions, rashes or trauma appreciated; dry Neuro: AAOx3, normal speech, moving all extremities Extremities: Moving all extremities no signs of trauma Psych: Appropriate mood and affect Course Vital Signs Vital signs: Vital Signs Temperature 36.9 C 02/19/23 14:52 Pulse 100 H 02/19/23 14:52 Respiratory Rate 18 02/19/23 14:52 Blood Pressure 126/75 02/19/23 14:52 Pulse Oximetry 98 02/19/23 14:52 Temperature 36.9 C 02/19/23 14:52 Pulse 100 H 02/19/23 14:52 Respiratory Rate 18 02/19/23 14:52 Respiratory Effort Normal, Non-Labored 02/19/23 14:57 Blood Pressure 126/75 02/19/23 14:52 Pulse Oximetry 98 02/19/23 14:52 Oxygen Delivery Method Room Air 02/19/23 14:52 Oxygen Flow Rate 0 02/19/23 14:52 PAWSS Have you Been Recently Intoxicated or Drunk Within the Last 30 days?: No Have you Ever Experienced Previous Episodes of Alcohol Withdrawal?: No Have you ever Experienced Withdrawal Seizures?: No Have you ever Experienced Delirium Tremens(DT)s?: No Have you ever undergone Alcohol Rehabilitation Treatment (i.e, inpt ot outpatient treatment programs)?: No Have you ever Experienced Blackouts?: No Have you ever Combined Alcohol with other Downers within the last 90 days?: No Have you ever Combined Alcohol with any other Substance of Abuse during the last 90 days?: No Result: 0
[2023-02-19] MEDS: metFORMIN 500 MG TAB PO (15:28)
[2023-02-19] MEDS: clonazePAM 0.5 MG TAB PO (15:28)
[2023-02-19 15:33] LABS: Abs Immature Grans 0.03 10^3/uL (0.0-0.06); Absolute Basophil Count 0.01 10^3/uL (0.0-0.2); Absolute Eosinophil Count 0.05 10^3/uL (0.0-0.7); Basophils % 0.3; Eosinophils % 1.3; HCT 35.3 % (40.0-50.0); HGB 12.4 g/dL (13.5-17.5); Immature Grans % 0.8; Lymphocytes % 26.4; MCH 31.6 pg (27.0-33.0); MCHC 35.1 % (32.0-36.0); MCV 90 fL (80-95); MPV 8.9 fL (8.0-11.0); Monocytes % 10.6; Neutrophils % 60.6; Platelet Count 127 10^3/uL (130-400); RBC 3.93 10^6/uL (4.36-5.78); RDW 13.8 % (11.8-14.1); RDW-SD 46.2 fL; WBC 3.79 10^3/uL (4.4-10.8)
[2023-02-19] MEDS: Normal Saline 1,000 ML 1000 ML IV (15:33)
[2023-02-19 15:34] VITALS: RESP 18
[2023-02-19 15:59] LABS: Troponin I < 50 ng/L (<or=60)
[2023-02-19 16:00] LABS: ALT 42 U/L (16-63); AST 32 U/L (15-37); Albumin 3.1 g/dL (3.4-5.0); Alkaline Phosphatase 88 U/L (46-116); BUN 24 mg/dL (7-18); Bilirubin, Total 0.4 mg/dL (0.2-1.0); CREATININE 0.7 mg/dL (0.70-1.30); Calcium 8.6 mg/dL (8.5-10.1); Chloride 100 mmol/L (98-107); Creatine Kinase 66 U/L (39-308); Estimated GFR 100.99 (mL/min/1.73m2); Glucose 449 mg/dL (74-106); Lipase 28 U/L (16-77); Potassium 4.7 mmol/L (3.5-5.1); Sodium 134 mmol/L (136-145); TSH (W/Ref FT4) 1.33 uIU/mL (0.36-3.74); Troponin I < 50 ng/L (<or=60)
[2023-02-19 16:07] LABS: Bilirubin Negative (Negative); Blood Negative (Negative); Clarity Clear (Clear); Glucose 500 mg/dL (Negative); Ketones Negative (Negative); Leukocyte Esterase Negative (Negative); Nitrite Negative (Negative); Specific Gravity 1.015 (1.005-1.025); Urobilinogen 0.2 mg/dL (Up to 0.2); pH 7.5 (5-8)
[2023-02-19] MEDS: AZITHROMYCIN 500 MG in Normal Saline 250 ML 250 MG IVPB (18:18)
--- NOTE | 2023-02-19 18:47 | W.MEDCONSULT ---
Date of service: 02/19/23 Time of Service: 18:47 Assessment and Plan Assessment and plan (1) Pulmonary infiltrate in right lung on chest x-ray: Status: Acute Assessment and plan: I am not convinced that he has pneumonia. He is not hypoxic, not coughing up purulent sputum and has no fever or leukocytosis. I am more concerned he has a malignancy and I told the patient about my concern. I am recommending oupatient empiric treatment for pneumonia for 7 days, then repeat his imaging but get CT scan, if a pneumonia then there should be some interval clearing, otherwise needs malignancy workup. He does not meet inpatient criteria for pneumonia treatment. He is not acutely dehydrated but his DM is out of control d/t not getting his metformin in a timely fashion. He is not in ketosis or acidosis. with respect to his DM, I called [facility] in [facility], and spoke to the pharmacist. They have had his metformin and klonopin ready for past 3 weeks. They have put them back on the shelf as no one came in to pick them up. I asked the pharmacist to get them available and indicated that the patient's phone is broken and messages need sent to the patient via email. I indicated that I would have the patient arrange for someone to pick up truck driver his Rx tomorrow and that the patient will also have an Rx sent by the ED doctor for antibiotics, probably Augmentin and zithromax. He said that he would get them ready for tomorrow. (2) Pneumonia: Status: Acute Assessment and plan: as above. I agree w/ treatment w/ Augmentin, zithromax combo and get outpatient CT chest and needs assigned to a PCP for close followup as outpatient. (3) Weight loss: Status: Acute Assessment and plan: suspect for malignancy, although his social isolation may be contributing to his not cooking/making adequate nutrition meals. He has been getting by on protein powder supplements. (4) Uncontrolled type 2 diabetes mellitus with hyperglycemia: Status: Acute Assessment and plan: I recommended to Dr. Tan that the patient be given a dose of his metformin now while in the ED, this will help drive down his glucose overnight (in addition to the fluid bolus he received). As the patient is not in DKA and he is eating and drinking fine presently, then the patient can be discharged home but will need Rx for his antibiotics and will need assignment to a PCP pineapple plantation manager who is local to [facility] so the patient can be followed up. I will give information to our inpatient CM team who can coordinate w/ the ED care team coordinator scheduler so that a PCP can be set up and [facility] can be called in the morning to arrange his med pickup. Dr. Tan agreed with this plan and thanked me for my time in consulting on this patient. History of Present Illness History of Present Illness Chief Complaint: fatigue, dyspnea Narrative: Reason for consult: evaluate for admission for pneumonia, dehydration 67 yr old male smoker who has hx of generalized anxiety disorder, and type II DM, previously followed by a PA at [facility], but patient lives in an apartment in [place], [place] and currently is w/out a local PCP. Patient is connected w/ [facility] for community support as well as local [facility] food pantry. He presented to the ED primarily because he feels that he has been failing at home w/ generalized weakness, states he has not been eating well and has been out of his medications since January 26. He admits to chronic dyspea. He lives on 2nd floor apt and although he is able to climb up them he gets short winded by the time he gets into his apartment. He is dependent on others to get his medications and for his groceries. He states that he has been out of his clonazepam and metformin since January 26. He usually gets these through [facility] in [facility]. With respect to his dyspnea there has been a gradual increase in the degree of his dyspnea and now he gets more out of breath with less activity. he has a chronic cough but no purulent sputum or hemoptysis. No fevers although he feels cold all the time. No chest pain or pressure. he has had progressive weight loss over several months but could not tell me exactly how much as he never weighs himself. He was evaluated in the ED and his workup included routine labs (CBC, CMP, ABG, UA) and EKG and CXR. CBC demonstrated borderline mild pancytopenia (WBC 3790, w/o a left shift, CMP normal electrolytes, LFT but elevated glucose of 449 w/out an elevated anion gap, mild elevated BUN 24 w/ normal creatinine 0.7, UA was only remarkable for glycosuria of 500 mg/dL but no ketones. CXR demonstrated right anteromedial upper lobe infiltrate. His vital signs on admission to the ER were as follows: temp 36.9 C, pulse 100 bpm, BP 126/75, SPO2 98% on room air. After discussion of the patient's symptoms and review of his vital signs and labs and CXR, I reassured him that he does not need inpatient treatment for either pneumonia nor for dehydration. In fact he was noted to be eating and drinking fine when I entered the room and he commented on how good the food tasted. When I inquired as to why he had not gotten his medications for the past 3 weeks, he told me that his phone was broken and he had not been able to contact [facility] and that no one had delivered his medications to him. He says that he is suppose to be on a medicaton delivery plan. He did say that he emailed the pharmacy and received an email back that they would contact him within 24 hours, but he says that he never got a response. When I inquired why he had not asked his neighbor to use their phone, he indicated that they were away. I also suggested to him that he could have had his corrections caseworker from [facility] or someone from the local food pantry who delivers his weeks groceries to make the call for him. When I indicated that I felt his pneumonia could be treated as an outpatient w/ oral antibiotics and he would be going home this evening, he then told me that he wants to stay here at [facility] so that we would get him into [facility] as he says his corrections caseworker at [facility] assured him that he has already been accepted for admission. However, he gave no psychiatric symptoms or reasons for inpatient psychiatric treatment other than his generalized anxiety. Review of Systems All systems reviewed & are unremarkable except as noted in HPI and below PFSH All Active Problems (Updated 02/19/23 @ 22:14 by Alhaji Rojas MD) Weight loss (Acute) Pulmonary infiltrate in right lung on chest x-ray (Acute) Uncontrolled type 2 diabetes mellitus with hyperglycemia (Acute) Pneumonia (Acute) Social History Smoking/Tobacco Use Status: Current every day Tobacco Type: cigarettes Years smoked: 55 Smoking risk assessment performed?: Yes Alcohol Intake: current Alcohol Intake frequency: holidays/special occasions only Drug use: Occasionally Substance use type: marijuana Do you feel safe at home: Yes Do you feel safe in your relationship?: Yes Exam Narrative Exam Narrative: Thin cachectic appearing long delaney haired gentleman who is sitting up on his [facility] eating his dinner Mucous membranes appear moist w/out erythem or exudate Neck: supple w/ muscle atrophy, no JVD, no adenopathy Lungs: diffusely diminished w/out wheezing or rhonchi or rales Chest wall w/ muscle wasting, barrel chested, ribs are readily visible Arms and legs w/out edema or cyanosis, again he has muscle wasting but has normal generalized strength Abdomen: scaphoid, soft, nontender Neuro: no focal CN deficits and normal ROM, and normal general strength Results Last Vital Signs Temp 36.9 C 02/19/23 14:52 Pulse 100 H 02/19/23 14:52 Resp 18 02/19/23 15:34 BP 126/75 02/19/23 14:52 Pulse Ox 98 02/19/23 14:52 Labs 02/19/23 15:23 02/19/23 15:23 Labs: Laboratory Results - last 24 hr 02/19/23 02/19/23 02/19/23 15:23 15:23 15:46 WBC 3.79 L RBC 3.93 L Hgb 12.4 L Hct 35.3 L MCV 90 MCH 31.6 MCHC 35.1 RDW 13.8 Plt Count 127 L MPV 8.9 Immature Gran % 0.8 Neutrophils % 60.6 Lymphocytes % 26.4 Monocytes % 10.6 Eosinophils % 1.3 Basophils % 0.3 Nucleated RBC % 0.0 Absolute Neutrophils 2.30 Absolute Lymphocytes 1.00 L Absolute Monocytes 0.40 Absolute Eosinophils 0.05 Absolute Basophils 0.01 Sodium 134 L Potassium 4.7 Chloride 100 Carbon Dioxide 30.0 Anion Gap 4.0 BUN 24 H Creatinine 0.7 Est GFR (CKD-EPI 2020) 100.99 Glucose 449 H Calcium 8.6 Magnesium 2.0 Total Bilirubin 0.4 AST 32 ALT 42 Alkaline Phosphatase 88 Creatine Kinase 66 Troponin I < 50 Total Protein 6.0 L Albumin 3.1 L Lipase 28 TSH 1.33 Urine Color Yellow Urine Clarity Clear Urine pH 7.5 Ur Specific [place] 1.015 Urine Protein Negative Urine Ketones Negative Urine Blood Negative Urine Nitrite Negative Urine Bilirubin Negative Urine Urobilinogen 0.2 Ur Leukocyte Esterase Negative Urine Glucose 500 H 06/29/23 18:14 WBC RBC Hgb Hct MCV MCH MCHC RDW Plt Count MPV Immature Gran % Neutrophils % Lymphocytes % Monocytes % Eosinophils % Basophils % Nucleated RBC % Absolute Neutrophils Absolute Lymphocytes Absolute Monocytes Absolute Eosinophils Absolute Basophils Sodium Potassium Chloride Carbon Dioxide Anion Gap BUN Creatinine Est GFR (CKD-EPI 2020) Glucose Calcium Magnesium Total Bilirubin AST ALT Alkaline Phosphatase Creatine Kinase Troponin I < 50 Total Protein Albumin Lipase TSH Urine Color Urine Clarity Urine pH Ur Specific [place] Urine Protein Urine Ketones Urine Blood Urine Nitrite Urine Bilirubin Urine Urobilinogen Ur Leukocyte Esterase Urine Glucose Imaging Chest x-ray: report reviewed and image reviewed (I went over his CXR w/ Dr. Tan, and I am concerned that his infiltrate may actually be a lung mass)
--- NOTE | 2023-02-19 19:25 | NUR.NOTE ---
Nursing Note:referral sent to cm for primary care establishment, followup
[2023-02-19 19:33] VITALS: BP 108/61; PULSE 91; TEMP 36.3; O2SAT 100
== END 2023-02-19 19:40 | disposition home or self-care (01) ==
PROVIDERS: Emergency Provider Emergency Medicine
DX: R91.8 Other nonspecific abnormal finding of lung field (principal); J18.9 Pneumonia, unspecified organism; R63.4 Abnormal weight loss; E11.65 Type 2 diabetes mellitus with hyperglycemia; F41.9 Anxiety disorder, unspecified; F32.A Depression, unspecified
CPT/HCPCS: 36416; 80053; 82550; 82962; 83690; 96361; 96365; 96367; 99283; 99284; 71046; 81003; 83735; 84443; 84484; 85025; J0456; J0696

== ENCOUNTER 2023-04-14 14:05 | Emergency (ER) | payer MEDICARE, SELFPAY ==
[2023-04-14 14:09] VITALS: BP 111/75; PULSE 100; RESP 20; TEMP 36.3; O2SAT 99
--- NOTE | 2023-04-14 14:31 | ED.GENADUL_ITS ---
Discharge Plan Disposition Patient Disposition: Home Discharge Details Clinical Impression: Depression, Acute hyperglycemia Primary Care Provider: Unknown,Unknown ED Provider: Jonelle Valerio Home Meds and New Rx's Prescriptions: New metformin 500 mg tablet 500 mg PO TID Qty: 30 0RF metformin 500 mg tablet 500 mg PO TID Qty: 90 0RF Continued hydroxyzine HCl 25 mg tablet 25 mg PO BID PRNQty: 10 0RF clonazepam 0.5 mg tablet 0.5 mg PO PRN PRN Patient Comments: TAKE 1 TABLET NEEDED FOR PANIC ATTACKS Discontinued metformin 500 mg tablet 500 mg PO BID Qty: 30 0RF Discharge Instructions Instructions: Depression (ED), Diabetic Hyperglycemia (ED) Additional Instructions: Please take your metformin, I sent prescription to your pharmacy follow-up with [facility] for counselor watch your diet I've placed a referral for medical care, please establish care with a doctor Discharge Data Discharge Date/Time-TO BE ENTERED AT DEPARTURE: 04/14/23 18:56 Medical Decision Making 67-year-old male presents to the ER with a chief complaint of depression, suicidal ideation and malnourishment. Patient reports that he is having suicidal thoughts depression anxiety. He states that his plan is to stop eating. He states, my plan is quiet, I won't bother anybody, and it'll be pretty easy for me to stop eating for a few days. Patient he is alert and oriented x4, does not appear under the influence of any substances. He does have a history of diabetes, osteoarthritis in his lower back. He reports that he has been taking cannabis and hemp. He did eat a couple of granola bars prior to arrival he reports that he has been urinating without difficulty. He denies any pain. He does endorse nausea and lightheadedness denies any vomiting or diarrhea. Unable to perform the smart medical clearance due to malnourishment, age, and history of diabetes. Labs ordered mental health eval ordered. Patient is requesting food we will feed him. On exam patient is very thin, alert and oriented x 4 and appears to have good insight. Sodium is 130, Glucose 409, chloride 97, BUN 34, Cr 0.7, GFR 100, NS one liter ordered and IV. Care is to be handed off to oncoming provider Jonelle ACEVEDO pending medical clearance and mental health eval. Medical Records Medical records reviewed: Yes I reviewed the patient's medical records. Lab Data Lab results reviewed: Yes I reviewed the patient's lab results. Labs: Laboratory Tests Range/Units 04/14/23 04/14/23 04/14/23 15:00 15:00 15:00 WBC (4.4-10.8) 10^3/uL 5.42 RBC (4.36-5.78) 10^6/uL 4.34 L Hgb (13.5-17.5) g/dL 13.7 Hct (40.0-50.0) % 38.6 L MCV (80-95) fL 89 MCH (27.0-33.0) pg 31.6 MCHC (32.0-36.0) % 35.5 RDW (11.8-14.1) % 13.6 Plt Count (130-400) 10^3/uL 178 MPV (8.0-11.0) fL 8.9 Immature Gran % 1.5 Neutrophils % 68.4 Lymphocytes % 19.4 Monocytes % 9.2 Eosinophils % 0.9 Basophils % 0.6 Nucleated RBC % (0.0-0.3) % 0.0 Absolute Neutrophils (1.2-6.7) 10^3/uL 3.71 Absolute Lymphocytes (1.2-3.4) 10^3/uL 1.05 L Absolute Monocytes (0.1-0.8) 10^3/uL 0.50 Absolute Eosinophils (0.0-0.7) 10^3/uL 0.05 Absolute Basophils (0.0-0.2) 10^3/uL 0.03 Sodium (136-145) mmol/L 130 L Potassium (3.5-5.1) mmol/L 4.3 Chloride (98-107) mmol/L 97 L Carbon Dioxide (21.0-32.0) mmol/L 24.5 Anion Gap (3-11) mmol/L 8.5 BUN (7-18) mg/dL 34 H Creatinine (0.70-1.30) mg/dL 0.7 Est GFR (CKD-EPI 2020) (mL/min/1.73m2) 100.99 Glucose (74-106) mg/dL 409 H Hemoglobin A1c (<5.7) % Calcium (8.5-10.1) mg/dL 8.8 Total Bilirubin (0.2-1.0) mg/dL 0.5 AST (15-37) U/L 32 ALT (16-63) U/L 41 Alkaline Phosphatase (46-116) U/L 91 Total Protein (6.4-8.2) g/dL 6.3 L Albumin (3.4-5.0) g/dL 3.2 L TSH (0.36-3.74) uIU/mL 2.78 Salicylates (<2.8) mg/dL < 2.8 Acetaminophen (10-30) ug/mL < 2 Ethyl Alcohol (<10) mg/dL < 3.0 Range/Units 04/14/23 15:00 WBC (4.4-10.8) 10^3/uL RBC (4.36-5.78) 10^6/uL Hgb (13.5-17.5) g/dL Hct (40.0-50.0) % MCV (80-95) fL MCH (27.0-33.0) pg MCHC (32.0-36.0) % RDW (11.8-14.1) % Plt Count (130-400) 10^3/uL MPV (8.0-11.0) fL Immature Gran % Neutrophils % Lymphocytes % Monocytes % Eosinophils % Basophils % Nucleated RBC % (0.0-0.3) % Absolute Neutrophils (1.2-6.7) 10^3/uL Absolute Lymphocytes (1.2-3.4) 10^3/uL Absolute Monocytes (0.1-0.8) 10^3/uL Absolute Eosinophils (0.0-0.7) 10^3/uL Absolute Basophils (0.0-0.2) 10^3/uL Sodium (136-145) mmol/L Potassium (3.5-5.1) mmol/L Chloride (98-107) mmol/L Carbon Dioxide (21.0-32.0) mmol/L Anion Gap (3-11) mmol/L BUN (7-18) mg/dL Creatinine (0.70-1.30) mg/dL Est GFR (CKD-EPI 2020) (mL/min/1.73m2) Glucose (74-106) mg/dL Hemoglobin A1c (<5.7) % 11.5 H Calcium (8.5-10.1) mg/dL Total Bilirubin (0.2-1.0) mg/dL AST (15-37) U/L ALT (16-63) U/L Alkaline Phosphatase (46-116) U/L Total Protein (6.4-8.2) g/dL Albumin (3.4-5.0) g/dL TSH (0.36-3.74) uIU/mL Salicylates (<2.8) mg/dL Acetaminophen (10-30) ug/mL Ethyl Alcohol (<10) mg/dL HPI General Mode of arrival: ambulatory . Date/Time Provider Initiated Documentation: 04/14/23 14:30 . Limitations to Documentation: no limitations . Information obtained by: patient, family and old records reviewed . HPI Narrative: 67-year-old male presents to the ER with a chief complaint of depression, suicidal ideation and malnourishment. Patient reports that he is having suicidal thoughts depression anxiety. He states that his plan is to stop eating. Patient he is alert and oriented x4, does not appear under the in fluence of any substances. He does have a history of diabetes, osteoarthritis in his lower back. He reports that he has been taking cannabis and hemp. He did eat a couple of granola bars prior to arrival he reports that he has been urinating without difficulty. He denies any pain. He does endorse nausea and lightheadedness denies any vomiting or diarrhea. Related Data Home Medications Medication Instructions Recorded Confirmed hydroxyzine HCl 25 mg tablet 25 mg PO BID PRN #10 tabs 01/19/23 02/19/23 clonazepam 0.5 mg tablet 0.5 mg PO PRN PRN 02/19/23 02/19/23 metformin 500 mg tablet 500 mg PO TID #30 tabs 04/14/23 metformin 500 mg tablet 500 mg PO TID #90 tabs 04/14/23 Previous Rx's Medication Instructions Recorded hydroxyzine HCl 25 mg tablet 25 mg PO BID PRN #10 tabs 01/19/23 metformin 500 mg tablet 500 mg PO TID #30 tabs 04/14/23 metformin 500 mg tablet 500 mg PO TID #90 tabs 04/14/23 Allergies Allergy/AdvReac Type Severity Reaction Status Date / Time No Known Allergies Allergy Unverified 02/19/23 15:00 General Stated Complaint: PsychEval JERAMY: 2 Review of Systems All systems reviewed & are unremarkable except as noted in HPI and below Constitutional Constitutional: Reports as per HPI, Reports lethargy and Reports weakness Cardiovascular Cardiovascular: Denies chest pain and Denies dyspnea Respiratory Respiratory: Denies cough and Denies dyspnea Gastrointestinal Gastrointestinal: Denies abdominal pain and Reports nausea Neurologic Neurologic: Reports weakness and Reports other (lightheadedness) Psychiatric Psychiatric: Reports as per HPI, Reports anxiety, Reports change in appetite, Reports depression, Reports hopelessness, Denies homicidal ideation and Reports suicidal ideation PFSH All Active Problems (Updated 04/14/23 @ 18:23 by CURTIS Wilks) Depression (Chronic) Acute hyperglycemia (Acute) Weight loss (Acute) Pulmonary infiltrate in right lung on chest x-ray (Acute) Social History Smoking/Tobacco Use Status: Current every day Tobacco Type: cigarettes Years smoked: 55 Smoking risk assessment performed?: Yes Alcohol Intake: current Alcohol Intake frequency: holidays/special occasions only Drug use: Occasionally Substance use type: marijuana Do you feel safe at home: Yes Do you feel safe in your relationship?: Yes Exam Narrative Exam Narrative: Constitutional: Alert and oriented x3. Appears stated age. Cachectic body habitus. Head: Normocephalic, no trauma. Eyes: Pupils PERRL, Red reflex noted, EOM's intact. Eyelids symmetrical without lesions, discharge, or swelling. ENT: Bilateral TM's WNL, External ear normal to inspection, no mastoid TTP, swelling, or erythema, Nasal turbinates WNL, no nasal discharge. Normal dentition, Posterior pharynx WNL, no exudate. Dry mucous membranes. Chest: RRR, Normal S1, S2, distal pulses intact. Resp: Lungs clear to auscultation bilaterally, no wheezes, rales, or rhonchi. Abdomen: Soft, non-distended, hypooactive bowel sounds all 4 quads. Musculoskeletal: Unable to assess gait, patient does use a bilateral arm crutch Skin: Does have various healing lesions, capillary refill less than 2 sec. Neurologic: Cranial nerves II-XII intact. Alert and oriented x 3. Motor: No deficits noted. Sensory: Intact bilaterally all 4 extremities. Reflexes: DTR's intact bilaterally.. Hematologic/Lymphatic: No ecchymosis, no lymphadenopathy. Psych Mental Status: mental status grossly normal Speech and Movement: speech and movement normal Affect: normal affect Attitude: cooperative Thought Process: normal Thought Content: suicidality Insight: insight good Judgment: judgment good Course Vital Signs Vital signs: Vital Signs Temperature 36.3 C L 04/14/23 14:09 Pulse 100 H 04/14/23 14:09 Respiratory Rate 20 04/14/23 14:09 Blood Pressure 111/75 04/14/23 14:09 Pulse Oximetry 99 04/14/23 14:09 Temperature 36.3 C L 04/14/23 14:09 Temperature Source Oral 04/14/23 14:09 Pulse 100 H 04/14/23 14:09 Respiratory Rate 20 04/14/23 14:09 Blood Pressure 111/75 04/14/23 14:09 Blood Pressure Position Sitting 04/14/23 14:09 Pulse Oximetry 99 04/14/23 14:09 Oxygen Delivery Method Room Air 04/14/23 14:09 Oxygen Flow Rate 0 04/14/23 14:09 Sign Out Sign Out Data: Sign Out Comment: Pending Medical clearance and jayant. 67-year-old male past medical history of type 2 diabetes, osteoarthritis in his lower spine presents with depression anxiety and suicidal thoughts. Patient states that he would like to stop eating and just quietly . He is not currently on any psych meds. Last updated by Debra Connor NP at 04/14/23 16:15
[2023-04-14 15:13] LABS: Abs Immature Grans 0.08 10^3/uL (0.0-0.06); Absolute Basophil Count 0.03 10^3/uL (0.0-0.2); Absolute Eosinophil Count 0.05 10^3/uL (0.0-0.7); Absolute Lymphocyte Count 1.05 10^3/uL (1.2-3.4); Absolute Neutrophil Count 3.71 10^3/uL (1.2-6.7); Basophils % 0.6; Eosinophils % 0.9; HCT 38.6 % (40.0-50.0); HGB 13.7 g/dL (13.5-17.5); Immature Grans % 1.5; Lymphocytes % 19.4; MCH 31.6 pg (27.0-33.0); MCHC 35.5 % (32.0-36.0); MCV 89 fL (80-95); MPV 8.9 fL (8.0-11.0); Monocytes % 9.2; Neutrophils % 68.4; Platelet Count 178 10^3/uL (130-400); RBC 4.34 10^6/uL (4.36-5.78); RDW 13.6 % (11.8-14.1); RDW-SD 44.3 fL; WBC 5.42 10^3/uL (4.4-10.8)
[2023-04-14 15:38] LABS: ALT 41 U/L (16-63); AST 32 U/L (15-37); Albumin 3.2 g/dL (3.4-5.0); Alkaline Phosphatase 91 U/L (46-116); Anion Gap 8.5 mmol/L (3-11); BUN 34 mg/dL (7-18); Bilirubin, Total 0.5 mg/dL (0.2-1.0); CO2 24.5 mmol/L (21.0-32.0); CREATININE 0.7 mg/dL (0.70-1.30); Calcium 8.8 mg/dL (8.5-10.1); Chloride 97 mmol/L (98-107); Estimated GFR 100.99 (mL/min/1.73m2); Glucose 409 mg/dL (74-106); Potassium 4.3 mmol/L (3.5-5.1); Sodium 130 mmol/L (136-145); TSH (W/Ref FT4) 2.78 uIU/mL (0.36-3.74); Total Protein 6.3 g/dL (6.4-8.2)
[2023-04-14 15:41] LABS: ETHANOL BLOOD < 3.0 mg/dL (<10)
[2023-04-14 15:52] LABS: Acetaminophen < 2 ug/mL (10-30); Salicylate < 2.8 mg/dL (<2.8)
[2023-04-14 16:44] LABS: Hemoglobin A1C 11.5 % (<5.7)
[2023-04-14] MEDS: metFORMIN 500 MG TAB PO (17:13)
[2023-04-14] MEDS: Normal Saline 1,000 ML 1000 ML IV (17:13)
[2023-04-14] MEDS: Insulin REGULAR-Human 100 UNITS/ML UNIT 7 UNITS SC (17:13)
--- NOTE | 2023-04-14 18:22 | NUR.NOTE ---
Nursing Note: Referral given to Care Management for needs PCP; acute hyperglycemia/diabetes; to be seen GENOVEVA
--- NOTE | 2023-04-14 18:55 | NUR.NOTE ---
Nursing Note: Pt verbalized understanding of safety plan. 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 Pt ambulated to waiting room without distress.
--- NOTE | 2023-04-14 22:10 | PDOC.MHCN ---
Date of service: 04/14/23 Time of Service: 17:50 PHQ-9 Over the last 2 weeks, how often have you been bothered by any of the following problems? 1. Little interest or pleasure in doing things: more than half the days 2. Feeling down, depressed, or hopeless: more than half the days 3. Trouble falling or staying asleep, or sleeping too much: nearly every day 4. Feeling tired or having little energy: nearly every day 5. Poor appetite or overeating: more than half the days 6. Feeling bad about yourself - or that you are a failure or have let yourself and your family down: more than half the days 7. Trouble concentrating on things, such as reading the newspaper or watching television: not at all 8. Moving or speaking so slowly that other people could have noticed? - Or the opposite - being so fidgety or restless that you have been moving around a lot more than usual: not at all 9. Thoughts that you would be better off or of hurting yourself in some way: several days Total score: 15 If you checked off any problems, how difficult have these problems made it for you to do your work, take care of things at home, or get along with other people?: very difficult Source: Developed by Drs. Gary Caceres, Charity Mathew, Ga Bonner and colleagues, with an educational jake from [employer]. Suicide Severity Rate CSSRS Have you wished you were or wished you could go to sleep and not wake up?: Yes Have you actually had any thoughts of killing yourself?: Yes CSSRS2 Have you been thinking about how you might do this?: Yes Have you had these thoughts and had some intention of acting on them?: Yes Have you started to work out or worked out the details of how to kill yourself? Do you intend to carry out this plan?: No CSSRS3 Have you ever done anything, started to do anything or prepared to do anything to end your life?: No Screening Score Total Score: 4 Screening: Positive Mental Health Emergency Note Release [facility] release signed:: Yes Reason for Visit In the last 2 weeks has the pt presented for ES prior to today?: No Client Information Well Housed: Yes Non Suicidal Self Injury Current: No History: No Safety Risk/Harm to Self or Others Current Ideation to Harm Self or Others: No Risk: Does risk to harm exist?: No Risk: N/A Duty to warn indicated: No Asssessment/Mental Status Appearance: Disheveled and Poor hygiene Attitude: Cooperative and Friendly Behavior: Unremarkable Speech: Normal Affect: Normal Mood: Other (Tired) Thought process: Unremarkable Hallucinations: No evidence Delusions: No evidence Attention: Unremarkable Perception: Not impaired Orientation: Fully orientated Memory: Intact Insight: Good Judgement: Good Neurovegetative Symptoms Sleep: No change (Client has a hard time sleeping due to PTSD) Appetitie: Disordered ( Client cannot stand for long periods of time and has a hard time cooking) Interests: No change Energy: No change Libido: Not applicable Substance Use: Other (No) Drug Issues: Other (Marijuana ) Do you use nicotine?: Yes Have you used substances in the last 7 days?: yes, Marijuana Additional Issues: Assaultive/Threatening Behavior: No Medical Concerns: Yes Client engaged in active self harm w/weapon: No Threatening to run away: No Child reported abuse/neglect: No Voluntarily presenting for services: Yes Domestic violence is a concern: No Extreme Psychosis or extreme behavior is present: No Plan/Disposition Recommended Disposition: Therapy. Plan: Client is José Miguel Olivo, 67-year-old male who presented into the ED at [facility] after not feeling well the past few days in addition to having some thoughts of depression due to his recent health issues. Client thought that it was the best idea at the time. Client was dehydrated and blood sugar was very high. Client appeared to be disheveled but was very friendly and cooperative to this pattern chart writer during the assessment. Client scored a 15/27 on the PHQ-9. Client has several medical issues; one makes it very difficult for the client to stand for long periods of time. Client's energy has been very low the past few weeks due to his medical issues. Client did identify to this pattern chart writer that he suffers from PTSD. Client did not have current ideation, intent, but did report that he wanted to 'starve himself' to by continue to not eat meals that deliver all the vitamins that he needs. Client did not identify any other plans. Client uses Marijuana every day to help with his medical issues, and tobacco products. Client is currently looking to get set up with a therapist to get help with his current depression and anxiety. Reports/communication Outcome discussed with: ED/Personnel
--- NOTE | 2023-04-14 22:28 | W.EDPROG ---
Date of service: 04/14/23 Time of Service: 22:30 Medical Decision Making This 67-year-old male was excepted at signout from Jeannette Connor, nurse practitioner, he is planning pending mental health assessment He has pseudohyponatremia likely secondary to his hyperglycemia, he tells me he has not taken his metformin for the past 2 months as the pharmacy would not refill it It sounds like he does not currently have a primary care physician I will refill his metformin I will also give 1 dose of insulin, 7 units He may need to go on insulin, however I will reinitiate metformin and then once he establishes with primary care physician they can determine whether or not to initiate insulin therapy at that time He is no endorsing any suicidality at this time, he is eating and drinking in the emergency department He is quite stable with stable vitals Care management will follow up and he will establish care with PCP closely [facility] was evaluated the patient is safety plan is in place Patient feels comfortable with discharge home Appropriate return cautions reviewed and patient expressed understanding Sign Out Sign Out Data: Sign Out Comment: Pending Medical clearance and jayant. 67-year-old male past medical history of type 2 diabetes, osteoarthritis in his lower spine presents with depression anxiety and suicidal thoughts. Patient states that he would like to stop eating and just quietly . He is not currently on any psych meds. Last updated by Debra Connor NP at 04/14/23 16:15 Discharge Plan Disposition Patient Disposition: Home Discharge Details Clinical Impression: Depression, Acute hyperglycemia Primary Care Provider: Unknown,Unknown ED Provider: Jonelle Valerio Home Meds and New Rx's Prescriptions: New metformin 500 mg tablet 500 mg PO TID Qty: 30 0RF metformin 500 mg tablet 500 mg PO TID Qty: 90 0RF Continued hydroxyzine HCl 25 mg tablet 25 mg PO BID PRNQty: 10 0RF clonazepam 0.5 mg tablet 0.5 mg PO PRN PRN Patient Comments: TAKE 1 TABLET NEEDED FOR PANIC ATTACKS Discontinued metformin 500 mg tablet 500 mg PO BID Qty: 30 0RF Discharge Instructions Instructions: Depression (ED), Diabetic Hyperglycemia (ED) Additional Instructions: Please take your metformin, I sent prescription to your pharmacy follow-up with [facility] for counselor watch your diet I've placed a referral for medical care, please establish care with a doctor Discharge Data Discharge Date/Time-TO BE ENTERED AT DEPARTURE: 04/14/23 18:56
--- NOTE | 2023-04-15 07:05 | NUR.NOTE ---
Nursing Note:in chart for address for rct
== END 2023-04-14 18:56 | disposition home or self-care (01) ==
PROVIDERS: Registered Nurse Emergency; Emergency Provider Physician Assistant
DX: R45.851 Suicidal ideations (principal); E11.65 Type 2 diabetes mellitus with hyperglycemia; F41.9 Anxiety disorder, unspecified; F32.A Depression, unspecified; Z79.84 Long term (current) use of oral hypoglycemic drugs; Z87.891 Personal history of nicotine dependence; Z79.899 Other long term (current) drug therapy
CPT/HCPCS: 80053; 82962; 99284; 80320; 80329; 83036; 84443; 85025

== ENCOUNTER 2023-05-27 08:57 | Emergency (ER) | payer MEDICARE, SELFPAY ==
[2023-05-27] VITALS (8 sets, daily range): BP systolic 112–123; BP diastolic 75–77; PULSE 84–101; RESP 16; TEMP 36.4; O2SAT 98–100
--- NOTE | 2023-05-27 09:00 | RT.EKG_ITS ---
APPROVED REPORT Exam: Resting ECG Reason for Exam: anxiety,difficulty breathing Patient Location: E HR:92 bpm ECG Measurements Heart Rate 92 AXIS RI 124 P 84 QRSd 83 QRS 81 QT 357 T 72 QTc 442 Conclusion Sinus rhythm...normal P axis, V-rate 60- 99 Atrial premature complex...SV complex w/ short R-R interval
--- NOTE | 2023-05-27 09:11 | NUR.NOTE ---
Nursing Note: patient reports not being able to sleep and needing to sleep with the light on
--- NOTE | 2023-05-27 09:25 | ED.GENADUL_ITS ---
Discharge Plan Disposition Patient Disposition: Home Condition: Stable Discharge Details Clinical Impression: Severe anxiety ED Provider: Varun Prescott Home Meds and New Rx's Prescriptions: Continued hydroxyzine HCl 25 mg tablet 25 mg PO BID PRNQty: 10 0RF Patient Comments: supposed to take but unable to get scripts from [facility] metformin 500 mg tablet 500 mg PO TID Qty: 90 0RF Patient Comments: supposed to take but unable to get scripts from [facility] clonazepam 0.5 mg tablet 0.5 mg PO PRN PRN Patient Comments: supposed to take but unable to get scripts from [facility] Rx Instructions: TAKE 1 TABLET NEEDED FOR PANIC ATTACKS Discharge Instructions Instructions: Anxiety (ED) Additional Instructions: Please take your medication as prescribed. Please follow-up with primary care physician at [facility] internal medicine. You have an appointment Thursday06/01/2023 at 8:30 AM. You have an appointment with a behavioral health specialist on Thursday06/01/2023 at 9 AM. Discharge Data Discharge Date/Time-TO BE ENTERED AT DEPARTURE: 05/27/23 11:09 Medical Decision Making 68-year-old male here with severe anxiety worsening over the past few months. Plan to treat with Valium p.o. I have called care management to request patient be established with primary care physician and mental health. Usual customary discharge instructions reviewed with the patient. HPI General Mode of arrival: EMS . Date/Time Provider Initiated Documentation: 05/27/23 09:20 . Limitations to Documentation: no limitations . Information obtained by: patient . HPI Narrative: 68-year-old male presents today with chief complaint of anxiety. Patient notes severe anxiety over the past few months. He states he has had difficulty sleeping. He notes when he shuts the light off he is unable to sleep and anxiety worsens. Patient is here specifically seeking to establish care with a primary care physician and psychiatry. Patient denies other complaint. Related Data Home Medications Medication Instructions Recorded Confirmed hydroxyzine HCl 25 mg tablet 25 mg PO BID PRN #10 tabs 01/19/23 05/27/23 clonazepam 0.5 mg tablet 0.5 mg PO PRN PRN 02/19/23 05/27/23 metformin 500 mg tablet 500 mg PO TID #90 tabs 04/14/23 05/27/23 Previous Rx's Medication Instructions Recorded hydroxyzine HCl 25 mg tablet 25 mg PO BID PRN #10 tabs 01/19/23 metformin 500 mg tablet 500 mg PO TID #90 tabs 04/14/23 Allergies Allergy/AdvReac Type Severity Reaction Status Date / Time No Known Allergies Allergy Unverified 05/27/23 09:04 General Stated Complaint: PsychEval JERAMY: 3 Review of Systems Psychiatric Psychiatric: Reports as per HPI PFSH All Active Problems (Updated 05/27/23 @ 10:20 by Varun Prescott MD) Severe anxiety (Acute) Weight loss (Acute) Pulmonary infiltrate in right lung on chest x-ray (Acute) Surgical History (Updated 05/27/23 @ 15:34 by Nicole Chen) Hx of liver transplant Social History (Updated 05/27/23 @ 15:33 by Nicole Chen) Smoking/Tobacco Use Status: Current every day Tobacco Type: cigarettes Years smoked: 55 Tobacco: How many years used: 45 Quit status: not considering quitting Second Hand Exposure: Yes Smoking risk assessment performed?: Yes Alcohol Intake: current Alcohol Intake frequency: holidays/special occasions only Details: 2-4 times per month, 1-2 at a time Drug use: Occasionally Substance use type: marijuana Adopted: No Caregiver/Support person: No Household members: none Housing: apartment Number of Children: 2 number of grandchildren: 2 Communication Needs: Corrective Lenses Education Level: high school Do you need help understanding health information?: Rarely current occupation: Retired Pets and animals: Yes (Fish) Sexually active: Yes Do you think of yourself as: straight/heterosexual Current gender identity: male What is your relationship status?: How often do you talk on the phone with friends or family?: never How often do you get together with friends or relatives?: twice per week Do you belong to any clubs or organized social groups?: no Panel score (0-1 are the most socially isolated patients): 0 What type of physical activity do you participate in: none Bernarda/Baptist: None Special bernarda needs: No Seatbelt use: always Helmet use: Yes Drive intox or ride w/intox armored car driver: No Do you feel safe at home: Yes Do you feel safe in your relationship?: Yes Additional Social history: [employer] Exam Const General: cooperative and no acute distress Nutritional Appearance: thin HENMT Mouth: moist mucous membranes Eyes Conjunctivae: normal conjunctivae Sclera: normal sclerae Neck Neck: trachea midline and supple Resp Auscultation: clear to auscultation bilaterally, no rales, no rhonchi and no wheezes Cardio Rate: regular rate and not tachycardic Rhythm: regular rhythm GI Palpation: soft, not firm, no guarding, no masses, not rigid and nontender Skin General skin exam: no rashes or lesions noted Neuro General: patient alert, patient awake and tone normal Extrem General: no edema Psych Appearance: grossly normal Mental Status: mental status grossly normal Mood: anxious mood Affect: normal affect Attitude: cooperative Thought Process: normal Thought Content: normal, no delusions, no hallucinations, no homicidality and suicidality Insight: insight good Course Vital Signs Vital signs: Vital Signs Temperature 36.4 C 05/27/23 08:58 Pulse 101 H 05/27/23 08:58 Respiratory Rate 16 05/27/23 08:58 Blood Pressure 112/77 05/27/23 08:58 Pulse Oximetry 100 05/27/23 08:58 Temperature 36.4 C 05/27/23 08:58 Temperature Source Oral 05/27/23 08:58 Pulse 101 H 05/27/23 08:58 Respiratory Rate 16 05/27/23 09:15 Respiratory Effort Normal 05/27/23 09:15 Respiratory Depth Normal 05/27/23 09:15 Respiratory Pattern Normal 05/27/23 09:15 Blood Pressure 112/77 05/27/23 08:58 Pulse Oximetry 100 05/27/23 08:58
[2023-05-27] MEDS: diazePAM 2 MG TAB PO (10:16)
--- NOTE | 2023-05-27 16:21 | CMPROGNOTE_ITS ---
Date of service: 05/27/23 Time of Service: 16:21 Care Management Progress Note Progress Note Text Progress Note Text: LINDSEY was requested to meet with José Miguel today while he was in the ED to help support him with setting up a PCP appointment and follow up for his anxiety. LINDSEY contacted [facility], who was listed as the client onboarding analyst provider for today. SINAN set up an ED follow up appointment with Dr. Mora on 06/01/23 at 08:30am, with an appointment with Katie, Behavioral health specialist directly following, at 9am. LINDSEY supported José Miguel with new patient paperwork, and faxed the completed forms to SINAN, as requested. LINDSEY called Gwen, his support from [facility], at José Miguel's request, to inform her of his follow up appointments, so she can help support him with transportation to the appointment.
== END 2023-05-27 11:09 | disposition home or self-care (01) ==
LOC: ER 11:15
PROVIDERS: Emergency Provider Student in an Organized Health Care Education/Training Program
DX: F41.9 Anxiety disorder, unspecified (principal)
CPT/HCPCS: 93005; 99283; 93010

== ENCOUNTER 2023-06-13 09:54 | Observation (INO) | payer MEDICARE, SELFPAY ==
[2023-06-13] VITALS (51 sets, daily range): BP systolic 117–183; BP diastolic 61–135; PULSE 58–97; RESP 12–31; TEMP 36–37; O2SAT 99–100
--- NOTE | 2023-06-13 09:45 | DI.CT_ITS ---
Exam(s) CT ABDOMEN PELVIS W EXAM: CT ABDOMEN PELVIS W CLINICAL HISTORY: Diarrhea, GI bleed. TECHNIQUE: Imaging Protocol: Axial computed tomography images with coronal and sagittal reformatted images were created and reviewed CONTRAST MATERIAL: Intravenous: Omnipaque-350 100cc Oral: None COMPARISON: CR XR CHEST 2V PA LATERAL from 02/19/2023 FINDINGS: Patient is cachectic. There is diffuse symmetrical haziness of the minimal amount of remaining subcu taneous fat as well as the small amount of fat within the peritoneal cavity. VISUALIZED LUNG BASES: There is a partially included abnormal nodule in the right middle lobe measuri ng 1.7 by 1.0 cm. No other nodules nor infiltrates in the visualized lung bases. No pleural effusio ns.. ABDOMEN: There is no true ascites. LIVER: Mild periportal edema. There are few tiny hypodensities in the liver consistent with cysts. Also mild dilatation of intrahepatic ducts in this patient who has had prior cholecystectomy. GALLBLADDER/BILIARY: Gallbladder surgically absent . CBD diameter normal. PANCREAS: No evidence of pancreatic mass nor pancreatic calcifications. Pancreatic duct is not dilat ed. SPLEEN: Spleen size upper normal. No intrasplenic lesions. Splenic vein diameter is slightly promin ent measuring 11 mm. Splenic and portal veins are patent. ADRENALS: There are no significant adrenal masses. KIDNEYS:No cysts evident. No solid renal masses. No calculi nor hydronephrosis.. ABDOMINAL AORTA: Atherosclerotic and calcified but not enlarged. Common iliac arteries also calcifie d but not significantly enlarged LYMPH NODES:There is no retroperitoneal nor paraaortic adenopathy. ABDOMINAL WALL: No evidence of significant anterior abdominal wall nor inguinal hernia. GI: There is no evidence of bowel obstruction, free air, nor abscess. PELVIS: GI: No evidence of appendicitis.No evidence of sigmoid diverticulitis. LYMPH NODES: There is no intrapelvic nor inguinal adenopathy. REPRODUCTIVE: Prostate moderately enlarged. URINARY BLADDER: There are small calculi on the dependent wall of the urinary bladder. The largest o f these on the right side and measures 5 mm. Probable calculi versus calcification within sessile bl adder wall mass(es). OSSEOUS: No fractures and no significant osseous lesions. IMPRESSION: 1. There is a concerning 1.7 cm nodule in the right long-right middle lobe seen on the uppermost imag es of this abdominal study. Chest CT scan is recommended to rule out malignancy and to determine if there are other nodules present. 2. Calcific density in the posterior wall right side of the urinary bladder measuring 5-6 mm, either representing a calculus or calcification within a sessile malignancy. Requires cystoscopy. There ar e no calculi higher up in the urinary tracts. 3. Other findings as above in this cachectic patient. RADIATION DOSE DELIVERED: Total DLP DATA REPOSITORY: All CT scans at this facility are submitted to the National Radiology Data Registry (NRDR) Dose Index Registry (DIR) with the [employer] (ACR). RADIATION OPTIMIZATION: All CT scans at this facility use at least one of these dose optimization te chniques: automated exposure control; mA and/or kV adjustment per patient size (includes targeted exa ms where dose is matched to clinical indication); or iterative reconstruction.
--- NOTE | 2023-06-13 09:56 | ED.GENADUL_ITS ---
Discharge Plan Disposition Patient Disposition: Admit to [facility] Discharge Details Clinical Impression: GI bleed due to NSAIDs, Pulmonary infiltrate in right lung on chest x-ray, Weight loss Primary Care Provider: None,None ED Provider: Casey Chery Home Meds and New Rx's Prescriptions: No Action hydroxyzine HCl 25 mg tablet 25 mg PO BID PRNQty: 10 0RF Patient Comments: supposed to take but unable to get scripts from [facility] metformin 500 mg tablet 500 mg PO TID Qty: 90 0RF Patient Comments: supposed to take but unable to get scripts from [facility] clonazepam 0.5 mg tablet 0.5 mg PO PRN PRN Hold Instructions: Prescription Finished Patient Comments: supposed to take but unable to get scripts from [facility] Rx Instructions: TAKE 1 TABLET NEEDED FOR PANIC ATTACKS Medical Decision Making Patient presenting to the emergency department for chief complaint of dark loose stools for over a week. Patient states that he has significant and severe peripheral neuropathy that is fairly debilitating causing him to not be able to stand for more than 5 to 10 minutes. Recently he did start intermittently taking some aspirin to help with pain and discomfort and has taken some antacids to help protect the stomach given history of stomach ulcer. He states for the past week he has had loose stools approximately every 2 hours but then over the past couple days had noticed some black watery loose stool. Patient denies any dizziness, syncope/lightheadedness, denies any abdominal pain, denies nausea vomiting, denies no new complaints beyond chronic peripheral neuropathy. Physic al exam shows a very frail thin appearing male that is cachectic, soft nontender abdomen, normal respiratory and cardiac exam with no focal findings. Rectum appears normal but stool is Hemoccult positive. We will plan on checking labs, CT imaging. Pending results will give Pepcid and pantoprazole pending results Reviewed labs and CBC shows no significant signs of anemia and is most part fairly unremarkable, CMP shows slightly low sodium at 131, chloride low at 96 glucose is elevated at 392 with a low albumin of 3.1. CT imaging reviewed along with radiologist interpretation that does show some bladder wall calcifications with radiology recommending urology consult for further investigation and patient does have a pulmonary nodule. I am concerned due to patient's nutritional status, being Hemoccult positive with GI bleed secondary to suspected NSAID use, severe peripheral neuropathy causing difficulty with ADLs. Discussed with patient admission for further observation and connecting with care management for outpatient resources which he was agreeable to. Spoke with hospitalist who agreed to admit patient for observation and further lab work-up and consultation with general surgery or urology as needed. Imaging Data Radiologic Study: Imaging: CT Scan Radiologist's impression: Exam(s) PROCEDURE INFORMATION: Exam: CT Abdomen And Pelvis With Contrast Exam date and time: 06/13/2023 11:19 AM Age: 68 years old Clinical indication: Abdominal pain TECHNIQUE: Imaging protocol: Computed tomography of the abdomen and pelvis with contrast. COMPARISON: CR XR CHEST 2V PA LATERAL 02/19/2023 4:20 PM FINDINGS: Lungs: 11.5 mm pulmonary nodule in the right middle lobe series 4, image 1 . Liver: Normal. No mass. Gallbladder and bile ducts: Surgical clips anterior to the portal vein may reflect prior cholecystectomy. The common duct is prominent. It measures 11millimeters. This may be due to post cholecystectomy state and elderly status. However, if biliary obstruction is suspected clinically, recommend further evaluation Pancreas: Pancreatic atrophy Spleen: Normal. No splenomegaly. Adrenal glands: Normal. No mass. Kidneys and ureters: Normal. No hydronephrosis. Stomach and bowel: Unremarkable. No obstruction. No mucosal thickening. Appendix: Normal appendix Intraperitoneal space: Unremarkable. No free air. No significant fluid collection. Vasculature: Unremarkable. No abdominal aortic aneurysm. Lymph nodes: Unremarkable. No enlarged lymph nodes. Urinary bladder: 6 mm Calcific density along the posterior aspect of the right bladder wall. Series 7, image 701. Additional calcific density in the left posterior bladder wall on image 708. Calcifications in the wall of the bladder can indicate infection or malignancy. Recommend urology consult. Reproductive: The prostate is enlarged, greater than 5 cm. Recommend urology consult Bones/joints: Unremarkable. No acute fracture. Soft tissues: Unremarkable. IMPRESSION: 1. 11.5 mm pulmonary nodule in the right middle lobe series 4, image 1 . 2. 6 mm Calcific density along the posterior aspect of the right bladder wall. Series 7, image 701. Additional calcific density in the left posterior bladder wall on image 708. Calcifications in the wall of the bladder can indicate infection or malignancy. Recommend urology consult. Lab Data Lab results reviewed: Yes I reviewed the patient's lab results. HPI General Mode of arrival: EMS . Date/Time Provider Initiated Documentation: 06/13/23 09:56 . Limitations to Documentation: no limitations . Information obtained by: patient and RN notes reviewed . History of Present Illness 68 year old M presents to the emergency department with the chief complaint of Dark watery stools, described as moderate and severe, Patient started experiencing this week(s) (1) and it has been constant. No relieving factors improve symptom(s), No exacerbating factors reported . Patient notes no other symptoms.. Patient did receive the following treatments prior to arrival, Aspirin Related Data Home Medications Medication Instructions Recorded Confirmed hydroxyzine HCl 25 mg tablet 25 mg PO BID PRN #10 tabs 01/19/23 06/13/23 clonazepam 0.5 mg tablet 0.5 mg PO PRN PRN 02/19/23 06/13/23 metformin 500 mg tablet 500 mg PO TID #90 tabs 04/14/23 06/13/23 Previous Rx's Medication Instructions Recorded hydroxyzine HCl 25 mg tablet 25 mg PO BID PRN #10 tabs 01/19/23 metformin 500 mg tablet 500 mg PO TID #90 tabs 04/14/23 Allergies Allergy/AdvReac Type Severity Reaction Status Date / Time No Known Allergies Allergy Unverified 06/13/23 09:45 General Stated Complaint: GenMedical JERAMY: 3 Review of Systems Constitutional Constitutional: Denies chills, Denies fever(s), Denies headache(s) and Reports malaise ENT Ears, Nose, Mouth, and Throat: Denies headache(s) Cardiovascular Cardiovascular: Denies chest pain and Denies dyspnea Respiratory Respiratory: Denies cough and Denies dyspnea Gastrointestinal Gastrointestinal: Reports as per HPI, Denies abdominal pain, Reports melena, Denies hematochezia, Reports fecal incontinence, Reports diarrhea, Reports loose stools, Denies nausea, Denies vomiting and Denies hematemesis Genitourinary Genitourinary: Denies oliguria and Denies difficulty urinating Integumentary/Breasts Skin/Breast: Denies rash Neurologic Neurologic: Denies headache(s) PFSH All Active Problems (Updated 06/13/23 @ 12:45 by Casey Chery NP) GI bleed due to NSAIDs (Acute) Severe anxiety (Acute) Weight loss (Acute) Pulmonary infiltrate in right lung on chest x-ray (Acute) Surgical History Hx of liver transplant Social History Smoking/Tobacco Use Status: Current every day Tobacco Type: cigarettes Years smoked: 55 Tobacco: How many years used: 45 Quit status: not considering quitting Second Hand Exposure: Yes Smoking risk assessment performed?: Yes Alcohol Intake: current Alcohol Intake frequency: holidays/special occasions only Details: 2-4 times per month, 1-2 at a time Drug use: Occasionally Substance use type: marijuana Adopted: No Caregiver/Support person: No Household members: none Housing: apartment Number of Children: 2 number of grandchildren: 2 Communication Needs: Corrective Lenses Education Level: high school Do you need help understanding health information?: Rarely current occupation: Retired Pets and animals: Yes (Fish) Sexually active: Yes Do you think of yourself as: straight/heterosexual Current gender identity: male What is your relationship status?: How often do you talk on the phone with friends or family?: never How often do you get together with friends or relatives?: twice per week Do you belong to any clubs or organized social groups?: no Panel score (0-1 are the most socially isolated patients): 0 What type of physical activity do you participate in: none Bernarda/Presybeterian: None Special bernarda needs: No Seatbelt use: always Helmet use: Yes Drive intox or ride w/intox caterpillar driver: No Do you feel safe at home: Yes Do you feel safe in your relationship?: Yes Additional Social history: [employer] Exam Const General: cooperative and frail appearing Nutritional Appearance: cachectic, thin and underweight Orientation: alert, awake and oriented x3 Resp Effort & Inspection: normal respiratory effort and able to speak in complete sentences Auscultation: clear to auscultation bilaterally Cardio Rate: regular rate Rhythm: regular rhythm Heart Sounds: S1 normal and S2 normal GI Palpation: soft, not firm, no guarding, no masses, no pulsatile masses, not rigid and tender Auscultation: normal bowel sounds Rectal Exam: heme positive stool Neuro General: patient alert, patient awake, patient oriented x3, gait normal and moves all extremities Course Vital Signs Vital signs: Vital Signs Temperature 37.0 C 06/13/23 09:32 Pulse 94 H 06/13/23 09:32 Respiratory Rate 20 06/13/23 09:32 Blood Pressure 131/84 06/13/23 09:32 Pulse Oximetry 99 06/13/23 09:32 Temperature 37.0 C 06/13/23 09:32 Temperature Source Oral 06/13/23 09:32 Pulse 94 H 06/13/23 09:32 Pulse 91 H 06/13/23 09:43 Respiratory Rate 13 06/13/23 09:43 Respiratory Effort Normal 06/13/23 09:43 Respiratory Depth Normal 06/13/23 09:43 Respiratory Pattern Normal 06/13/23 09:43 Blood Pressure 131/84 06/13/23 09:32 Blood Pressure Position Supine 06/13/23 09:32 Pulse Oximetry 99 06/13/23 09:32 Oxygen Delivery Method Room Air 06/13/23 09:32 Oxygen Flow Rate 0 06/13/23 09:32
[2023-06-13 10:15] LABS: Abs Immature Grans 0.07 10^3/uL (0.0-0.06); Absolute Basophil Count 0.02 10^3/uL (0.0-0.2); Absolute Eosinophil Count 0.03 10^3/uL (0.0-0.7); Absolute Lymphocyte Count 1.06 10^3/uL (1.2-3.4); Absolute Monocyte Count 0.48 10^3/uL (0.1-0.8); Absolute Neutrophil Count 3.23 10^3/uL (1.2-6.7); Basophils % 0.4; Eosinophils % 0.6; HCT 39.1 % (40.0-50.0); HGB 13.5 g/dL (13.5-17.5); Immature Grans % 1.4; Lymphocytes % 21.7; MCHC 34.5 % (32.0-36.0); MCV 87 fL (80-95); Monocytes % 9.8; Neutrophils % 66.1; Platelet Count 189 10^3/uL (130-400); RDW 13.2 % (11.8-14.1); RDW-SD 41.8 fL; WBC 4.89 10^3/uL (4.4-10.8)
[2023-06-13] MEDS: FAMOTIDINE 20 MG in Normal Saline 100 ML 400 MG IVPB (10:24)
[2023-06-13] MEDS: Pantoprazole 40 MG VIAL IVP ×2 (10:27→20:28)
[2023-06-13 10:30] LABS: ALT 24 U/L (16-63); AST 26 U/L (15-37); Albumin 3.1 g/dL (3.4-5.0); Alkaline Phosphatase 98 U/L (46-116); Anion Gap 6.3 mmol/L (3-11); BUN 13 mg/dL (7-18); Bilirubin, Total 0.6 mg/dL (0.2-1.0); CO2 28.7 mmol/L (21.0-32.0); CREATININE 0.7 mg/dL (0.70-1.30); Calcium 9.2 mg/dL (8.5-10.1); Chloride 96 mmol/L (98-107); Estimated GFR 100.37 (mL/min/1.73m2); Glucose 392 mg/dL (74-106); Magnesium 1.8 mg/dL (1.8-2.4); Potassium 3.7 mmol/L (3.5-5.1); Sodium 131 mmol/L (136-145)
[2023-06-13] MEDS: Omnipaque 350 MG/ML 100 ML BTL IJ (11:26)
--- NOTE | 2023-06-13 11:37 | DI.VRAD_ITS ---
PROCEDURE INFORMATION: Exam: CT Abdomen And Pelvis With Contrast Exam date and time: 06/13/2023 11:19 AM Age: 68 years old Clinical indication: Abdominal pain TECHNIQUE: Imaging protocol: Computed tomography of the abdomen and pelvis with contrast. COMPARISON: CR XR CHEST 2V PA LATERAL 02/19/2023 4:20 PM FINDINGS: Lungs: 11.5 mm pulmonary nodule in the right middle lobe series 4, image 1 . Liver: Normal. No mass. Gallbladder and bile ducts: Surgical clips anterior to the portal vein may reflect prior cholecystectomy. The common duct is prominent. It measures 11millimeters. This may be due to post cholecystectomy state and elderly status. However, if biliary obstruction is suspected clinically, recommend further evaluation Pancreas: Pancreatic atrophy Spleen: Normal. No splenomegaly. Adrenal glands: Normal. No mass. Kidneys and ureters: Normal. No hydronephrosis. Stomach and bowel: Unremarkable. No obstruction. No mucosal thickening. Appendix: Normal appendix Intraperitoneal space: Unremarkable. No free air. No significant fluid collection. Vasculature: Unremarkable. No abdominal aortic aneurysm. Lymph nodes: Unremarkable. No enlarged lymph nodes. Urinary bladder: 6 mm Calcific density along the posterior aspect of the right bladder wall. Series 7, image 701. Additional calcific density in the left posterior bladder wall on image 708. Calcifications in the wall of the bladder can indicate infection or malignancy. Recommend urology consult. Reproductive: The prostate is enlarged, greater than 5 cm. Recommend urology consult Bones/joints: Unremarkable. No acute fracture. Soft tissues: Unremarkable. IMPRESSION: 1. 11.5 mm pulmonary nodule in the right middle lobe series 4, image 1 . 2. 6 mm Calcific density along the posterior aspect of the right bladder wall. Series 7, image 701. Additional calcific density in the left posterior bladder wall on image 708. Calcifications in the wall of the bladder can indicate infection or malignancy. Recommend urology consult. Dictated and Authenticated by: Philly Hall MD. Ordering:SHELDON Peña MD
--- NOTE | 2023-06-13 13:02 | W.PM.HP.N ---
Date of service: 06/13/23 Time of Service: 13:02 Assessment and Plan Assessment and plan (1) GI bleed due to NSAIDs: Status: Acute Assessment and plan: Stools positive for occult blood no karen blood noted hemodynamically stable with heart rate in the 80s and 90s blood pressure 130s no orthostasis shortness of breath or chest pain. Will refer to observation monitor serial H&H he has been started on a PPI. Consider surgical consult if unstable otherwise will defer for outpatient evaluation (2) Severe anxiety: Status: Acute Assessment and plan: Currently not on any medication. He does not have a primary care provider will need to establish with the help of case management again. He assures me he will follow-up moving forward. Orders placed for clonazepam and hydroxyzine as per old MAR but more recently he was on Valium again he has no prescriptions at this time as he has no primary care provider this was prescribed in the emergency department we will continue clonazepam and hydroxyzine for now. (3) Diabetes mellitus type 2 in nonobese: Status: Acute Assessment and plan: Hemoglobin A1c is greater than 13. He is been prescribed metformin but again he has no prescriptions available he has he has not followed up with primary care provider will obtain diabetes education consult, continue diabetic diet with sliding scale coverage before meals and at bedtime (4) Neuropathy: Status: Acute Assessment and plan: Due to uncontrolled diabetes mellitus. He has been treating himself with aspirin will not continue this while hospitalized as he is admitted for acute GI bleed. Consider gabapentin but will need to be established with primary care provider for now will attempt glucose management.. (5) Failure to thrive in adult: Status: Acute Assessment and plan: Likely contributing is his severe anxiety. Also noted to have pulmonary nodule on his abdominal CT. Did receive contrasted CT yesterday will wait for Thursday and obtain CAT scan of the chest for malignancy work-up. (6) Tobacco abuse: Status: Acute Assessment and plan: Smoking cessation discussed as this is likely contributing to his neuropathy. Will order nicotine replacement while hospitalized (7) Discharge planning issues: Status: Acute Assessment and plan: Case management will be consulted for discharge planning. He needs to be established with a primary care provider. At this time he is agree able to this plan and states he will follow-up. No DVT prophylaxis in setting of acute GI bleed. Admission discussed with Dr. Molina History of Present Illness History of Present Illness Chief Complaint: black stool Narrative: This is a 68-year-old male patient no primary care provider noncompliant with medical plan arranged on previous ED visit, history of diabetes mellitus currently on no treatment, current history of tobacco abuse who states that he has had pain in his bilateral feet so has been taking aspirin for the pain and now has noticed that his stools are black so presents for evaluation. His vital signs have been stable. Rectal exam is positive for occult blood in the emergency department. No karen blood is noted. He was given IV Protonix and will be admitted to the hospitalist service for further monitoring and treatment. Review of Systems All systems reviewed & are unremarkable except as noted in HPI and below PFSH All Active Problems (Updated 06/14/23 @ 19:56 by Sophie Busby NP) Tobacco abuse (Acute) Discharge planning issues (Acute) Failure to thrive in adult (Acute) Neuropathy (Acute) Diabetes mellitus type 2 in nonobese (Acute) GI bleed due to NSAIDs (Acute) Severe anxiety (Acute) Weight loss (Acute) Pulmonary infiltrate in right lung on chest x-ray (Acute) Surgical History Hx of liver transplant Social History Smoking/Tobacco Use Status: Current every day Tobacco Type: cigarettes Years smoked: 55 Tobacco: How many years used: 45 Quit status: not considering quitting Second Hand Exposure: Yes Smoking risk assessment performed?: Yes Alcohol Intake: current Alcohol Intake frequency: holidays/special occasions only Details: 2-4 times per month, 1-2 at a time Drug use: Occasionally Substance use type: marijuana Adopted: No Caregiver/Support person: No Household members: none Housing: apartment Number of Children: 2 number of grandchildren: 2 Communication Needs: Corrective Lenses Education Level: high school Do you need help understanding health information?: Rarely current occupation: Retired Pets and animals: Yes (Fish) Sexually active: Yes Do you think of yourself as: straight/heterosexual Current gender identity: male What is your relationship status?: How often do you talk on the phone with friends or family?: never How often do you get together with friends or relatives?: twice per week Do you belong to any clubs or organized social groups?: no Panel score (0-1 are the most socially isolated patients): 0 What type of physical activity do you participate in: none Bernarda/Confucianism: None Special bernarda needs: No Seatbelt use: always Helmet use: Yes Drive intox or ride w/intox wheelchair van driver: No Do you feel safe at home: Yes Do you feel safe in your relationship?: Yes Additional Social history: [employer] Meds Allergies and Home Medications Allergies Allergy/AdvReac Type Severity Reaction Status Date / Time No Known Allergies Allergy Unverified 06/13/23 09:45 Home Medications Medication Instructions Recorded Confirmed Type hydroxyzine HCl 25 mg tablet 25 mg PO BID PRN #10 tabs 01/19/23 06/13/23 Rx clonazepam 0.5 mg tablet 0.5 mg PO PRN PRN 02/19/23 06/13/23 History metformin 500 mg tablet 500 mg PO TID #90 tabs 04/14/23 06/13/23 Rx Exam Const General: no acute distress, disheveled, frail appearing and ill appearing chronically Nutritional Appearance: cachectic Orientation: alert, awake and oriented x3 HENFL Head: normal to inspection, normocephalic and atraumatic Face and sinus: normal facial exam Neck Neck: normal visual inspection, full ROM and no JVD Resp Effort & Inspection: normal respiratory effort Auscultation: no rales and no rhonchi Cardio Rate: regular rate and not tachycardic Rhythm: regular rhythm GI Inspection: normal to inspection Palpation: soft and nontender Skin General skin exam: no rashes or lesions noted Neuro General: patient alert, patient awake and patient oriented x3 Extrem General: normal to inspection, full ROM and no pedal edema Results Labs 06/14/23 08:19 06/14/23 08:19 Labs: Laboratory Results - last 24 hr 06/13/23 09:30 WBC 4.89 RBC 4.50 Hgb 13.5 Hct 39.1 L MCV 87 MCH 30.0 MCHC 34.5 RDW 13.2 Plt Count 189 MPV 9.0 Immature Gran % 1.4 Neutrophils % 66.1 Lymphocytes % 21.7 Monocytes % 9.8 Eosinophils % 0.6 Basophils % 0.4 Nucleated RBC % 0.0 Absolute Neutrophils 3.23 Absolute Lymphocytes 1.06 L Absolute Monocytes 0.48 Absolute Eosinophils 0.03 Absolute Basophils 0.02 Sodium 131 L Potassium 3.7 Chloride 96 L Carbon Dioxide 28.7 Anion Gap 6.3 BUN 13 Creatinine 0.7 Est GFR (CKD-EPI 2020) 100.37 Glucose 392 H Calcium 9.2 Magnesium 1.8 Total Bilirubin 0.6 AST 26 ALT 24 Alkaline Phosphatase 98 Total Protein 7.0 Albumin 3.1 L Patient ABO/Rh A Positive Antibody Screen NEGATIVE Last Vital Signs Temp 37.0 C 06/13/23 09:32 Pulse 94 H 06/13/23 09:32 Resp 13 06/13/23 09:43 BP 131/84 06/13/23 09:32 Pulse Ox 99 06/13/23 09:32 Time Spent Time spent with Patient: 40-54 minutes Time was spent: preparing to see the patient(eg.review tests), obtaining and/or reviewing separately otained hiistory, ordering medications,tests, procedures, indepentently interpreting results and counseling the patient
[2023-06-13] MEDS: Normal Saline 1,000 ML 150 ML IV (13:16)
[2023-06-13 14:41] LABS: Source Nasal/Nares
[2023-06-13 14:44] LABS: Bilirubin Negative (Negative); Blood Negative (Negative); Clarity Clear (Clear); Glucose >=1000 mg/dL (Negative); Ketones 15 mg/dL (Negative); Leukocyte Esterase Negative (Negative); Nitrite Negative (Negative); Specific Gravity 1.015 (1.005-1.025); pH 7.5 (5-8)
[2023-06-13 14:56] LABS: Hemoglobin A1C > 13.0 % (<5.7)
[2023-06-13 15:14] LABS: COVID-19 PCR Negative (Negative)
[2023-06-13 15:22] LABS: Folate 10.1 ng/mL (8.6-20.0); Vitamin B12 430 pg/mL (193-986)
[2023-06-13 16:17] LABS: HCT 36.8 % (40.0-50.0); HGB 12.5 g/dL (13.5-17.5)
[2023-06-13] MEDS: Nicotine 21 MG/24 HR PATCH TD (21:11)
[2023-06-14 07:51] VITALS: BP 139/82; PULSE 85; RESP 16; TEMP 36.4; O2SAT 100
[2023-06-14] MEDS: Pantoprazole 40 MG VIAL IVP ×2 (07:51→20:58)
[2023-06-14] MEDS: Normal Saline Flush 10 ML SYR IVP ×2 (07:51→21:06)
[2023-06-14 08:38] LABS: Abs Immature Grans 0.07 10^3/uL (0.0-0.06); Absolute Basophil Count 0.03 10^3/uL (0.0-0.2); Absolute Eosinophil Count 0.07 10^3/uL (0.0-0.7); Absolute Lymphocyte Count 1.18 10^3/uL (1.2-3.4); Absolute Monocyte Count 0.52 10^3/uL (0.1-0.8); Absolute Neutrophil Count 3.57 10^3/uL (1.2-6.7); Basophils % 0.6; Eosinophils % 1.3; HCT 38.3 % (40.0-50.0); HGB 13.3 g/dL (13.5-17.5); Immature Grans % 1.3; Lymphocytes % 21.7; MCH 29.8 pg (27.0-33.0); MCHC 34.7 % (32.0-36.0); MCV 86 fL (80-95); MPV 8.5 fL (8.0-11.0); Monocytes % 9.6; Neutrophils % 65.5; Platelet Count 174 10^3/uL (130-400); RBC 4.47 10^6/uL (4.36-5.78); RDW 13.2 % (11.8-14.1); RDW-SD 40.8 fL; WBC 5.44 10^3/uL (4.4-10.8)
[2023-06-14 08:49] LABS: INR 1.1 (0.9-1.1)
[2023-06-14 09:02] LABS: BUN 7 mg/dL (7-18); CREATININE 0.7 mg/dL (0.70-1.30); Calcium 9.2 mg/dL (8.5-10.1); Chloride 100 mmol/L (98-107); Estimated GFR 100.37 (mL/min/1.73m2); Glucose 245 mg/dL (74-106); Magnesium 1.8 mg/dL (1.8-2.4); Potassium 3.1 mmol/L (3.5-5.1); Sodium 134 mmol/L (136-145); TSH (W/Ref FT4) 2.47 uIU/mL (0.36-3.74)
[2023-06-14] MEDS: Cyanocobalamin 1000 MCG/ML VIAL IM/SC (09:22)
[2023-06-14] MEDS: Insulin Aspart 300 UNITS/3 ML PEN SC ×4 (09:22→20:59)
[2023-06-14] MEDS: Cyanocobalamin 500 MCG TAB 1000 MCG PO (09:22)
--- NOTE | 2023-06-14 10:08 | IN_ITS ---
PT Notes Visit Reasons: GI Bleed Date:?[] Referring Doctor: [] Orders: [] Precautions:? [] Patient Profile/Admitting Diagnosis:???68 y o male presenting to ER yesterday due to frequent dark stools. GI bleed suspected at ER secondary to suspected NSAID use, severe peripheral neuropathy causing difficulty with ADLs. Patient admitted for further observation and connecting with care management for outpatient resources. PMHX:All Active Problems (Updated 06/13/23 @ 12:45 by Casey Chery NP) GI bleed due to NSAIDs (Acute) Severe anxiety (Acute) Weight loss (Acute) Pulmonary infiltrate in right lung on chest x-ray (Acute) Surgical History Hx of liver transplant Social History/Home Situation:[] Equipment Owned/DME:[] Subjective:[] Objective: General Observation: [] Mental Status: Pain: [] Vital Signs: [] ROM: [] Strength: [] Bed Mobility/Transfers: [] Gait: [] Balance: Static Sitting: [] Dynamic Sitting: [] Static Standing: [] Dynamic Standing: [] Special Tests: Mobility Limitations Standardized Measure [facility] AM-PAC 6 clicks Basic Mobility Inpatient Short Form:[] disability Informed Consent/Education:? Patient was instructed in purpose of PT consult and plan of care. Agreeable to proceed with established PT POC to achieve personal goals. Assessment: Patient presents with clinical signs and symptoms consistent with [], with admitting diagnoses of [] that have resulted in mobility limitations, generalized weakness, and overall ADL decline, as demonstrated by the following impairment level findings:[] Impairments are contributing to the following functional limitations:[] Patient requires skilled PT intervention to achieve below goals to attend to functional limitation deficits, improve safety with functional attempts, and achieve achieve below goals. Patient is assessed as [] complexity based on the following: History: Per above social history and medical history Examination: [] Presentation: [] Decision Making:? [] Goals: Goals X1 week 1. Supine-Sit[] 2. Sit-Supine [] 3. Sit-Stand [] 4. Stand-Sit [] 5. Bed-Chair [] 6. Chair-Bed [] 7. [] gait on level surface with use of [] 8. [] stair negotiation of [] steps, with [] assist 9. Independent with home exercise program 10. [] balance Plan of Care/Treatment Plan: 1-2x/day, 7 days/week x 1 week. Plan of care has been reviewed with the ENTRY LEVEL SALES ASSOCIATE providing the service under Physical Therapy direction. Initiate Physical Therapy intervention for pain management as needed, strengthening, bed mobility, transfers, gait, stairs, balance training, and use of assistive device. DISCHARGE RECOMMENDATIONS: [] ? Home with no services [] [] ? Home with services [] [] ? Home with outpatient PT [] [] ? SNF for continued rehabilitation [] [] ? Hand Pleater Care [] [] ? SNF versus LTC based on ability to participate and progress [] ? TREATMENT CODE(s): [] Treatment TIME: []
--- NOTE | 2023-06-14 10:23 | PDOC.CMIN ---
Date of service: 06/14/23 Time of Service: 10:30 Care Management Initial Assmt Initial Assessment REASON FOR HOSPITALIZATION:: GI bleed PREVIOUS FUNCTIONAL STATUS/SOCIAL/FAMILY SUPPORTS:: José Miguel lives alone in an apartment in [facility]. He has two children, a son and a daughter, who both live out of state. He reported that they keep in contact by email mostly. He has support from [facility]; his correctional casework specialist is Gwen Rojas. He is independent at baseline, although he reports that he needs to rest frequently while ambulating. CURRENT FUNCTIONAL STATUS:: José Miguel was lying in bed when CM met with him. He stated that he is doing ok today. He reported that since he started taking antibiotics which were prescribed to him a few weeks ago from the ED, he has had terrible diarrhea, which has prevented him from leaving his house. He stated that this is why he didn't make it to his PCP appointment that was scheduled on 06/01/23 to establish care at [facility]. CM will coordinate a hospital discharge follow up appointment with the technical applications scientist provider. Per report, José Miguel will have a CT of his chest tomorrow morning. José Miguel asked if there are resources in the community to help him obtain a phone. CM will send a referral to [facility]. CM will continue to follow. ADVANCE DIRECTIVES:: Not on file; CM will offer forms. Has patient been provided with info about the portal/API?: Yes Did the patient sign up for the portal?: No CODE STATUS:: Full Code INSURANCE COVERAGE / FINANCIAL ISSUES:: MCR. [place]. CURRENT HOME/COMMUNITY SERVICES/EQUIPMENT:: [facility], [facility]. forearm crutches. PRIMARY CARE PHYSICIAN:: None; CM will set up follow up with technical applications scientist provider POTENTIAL DISCHARGE NEEDS:: Evaluations for further needs, follow up appointments. PATIENT/FAMILY EDUCATION NEEDS:: Review discharge instructions and limitations, discussion of self care needs including ask me three. ANTICIPATED BARRIERS TO DISCHARGE:: None identified. TRANSPORTATION:: Via [facility] private vehicle. PLAN:: Anticipate José Miguel will return home when medically cleared. He will transport via [facility] private vehicle. He will follow up with the technical applications scientist provider, and his discharge plan of care. CM will continue to follow. PFSH All Active Problems (Updated 06/13/23 @ 12:45 by Casey Chery NP) GI bleed due to NSAIDs (Acute) Severe anxiety (Acute) Weight loss (Acute) Pulmonary infiltrate in right lung on chest x-ray (Acute) Surgical History Hx of liver transplant Social History Smoking/Tobacco Use Status: Current every day Tobacco Type: cigarettes Years smoked: 55 Tobacco: How many years used: 45 Quit status: not considering quitting Second Hand Exposure: Yes Smoking risk assessment performed?: Yes Alcohol Intake: current Alcohol Intake frequency: holidays/special occasions only Details: 2-4 times per month, 1-2 at a time Drug use: Occasionally Substance use type: marijuana Adopted: No Caregiver/Support person: No Household members: none Housing: apartment Number of Children: 2 number of grandchildren: 2 Communication Needs: Corrective Lenses Education Level: high school Do you need help understanding health information?: Rarely current occupation: Retired Pets and animals: Yes (Fish) Sexually active: Yes Do you think of yourself as: straight/heterosexual Current gender identity: male What is your relationship status?: How often do you talk on the phone with friends or family?: never How often do you get together with friends or relatives?: twice per week Do you belong to any clubs or organized social groups?: no Panel score (0-1 are the most socially isolated patients): 0 What type of physical activity do you participate in: none Bernarda/Episcopalian: None Special bernarda needs: No Seatbelt use: always Helmet use: Yes Drive intox or ride w/intox milk wagon driver: No Do you feel safe at home: Yes Do you feel safe in your relationship?: Yes Additional Social history: [employer]
--- NOTE | 2023-06-14 11:14 | PT.INIE ---
Date of service: 06/14/23 Time of Service: 09:20 PT Notes Visit Reasons: GI Bleed Date:?06/14/23 Referring Doctor: Sophie Busby MD Orders: non-urgent order Precautions:? Standard Patient Profile/Admitting Diagnosis:???68 y o male admitted for observation due to GI bleed due to NSAIDs, Pulmonary infiltrate in right lung on chest x-ray, Weight loss with need for nutrition counseling. PMHX:All Active Problems (Updated 06/13/23 @ 12:45 by Casey Chery NP) GI bleed due to NSAIDs (Acute) Severe anxiety (Acute) Weight loss (Acute) Pulmonary infiltrate in right lung on chest x-ray (Acute) Surgical History Hx of liver transplant Social History/Home Situation:Lives alone in a private apartment. Uses bilateral LSC for ambulation within his apartment, he states his apartment is too crowded to use RW. He has a flight of stairs to enter with a rail and wall to utilize for stability, but it fatigues him greatly. He is limited to just 5 min of ambulation due to neuropathy pain. He does not have a phone, can not afford one. He has food supply from a local [employer] group. Does not like meal on wheels food. He lives off of protein bars. Equipment Owned/DME:LSC Subjective: He does have a car for transportation, and no phone to call [facility] for transportation to any needed medical apts, or to grocery stores. He can not afford a phone. Depends on food donations for nutrition. He lives in a very crowded home so furniture travels most of the time. No history of falls. Denies any pain. Limited with activity at baseline due ot neuropathy pain in feet. Objective: General Observation: Lying unclothed in hospital bed. Poor hygeine. Global muscle atrophy, appears malnourished. Mental Status: A & O x 3 Pain: None Vital Signs: Stable per nursing notes review ROM: Grossly WFL B extremities Strength: Grossly 3+/5 throughout B UE and LE's Bed Mobility/Transfers: Bed mobility: Independent Supine to EOB: Independent Sit to stand, stand to sit with B LSC: Independent Bed to chair: Independent with LSC Gait: Only tolerating 3 min, about 40 ft with LSC limited by fatigue, requires close supervision due to instability. Balance: Static Sitting: Good Dynamic Sitting: Good Static Standing: Good with WBOS, close supervision needed Dynamic Standing: Poor Stage 4 Balance Test Time (seconds) Feet together 5 Partial tandem 0 Tandem 0 One foot unable Loss of balance with static stand arm reach, and trunk rotation, with WBOS Special Tests: Mobility Limitations Standardized Measure [facility] AM-PAC 6 clicks Basic Mobility Inpatient Short Form:11% disability Informed Consent/Education:? Patient was instructed in purpose of PT consult and plan of care. Agreeable to proceed with established PT POC to achieve personal goals. Assessment: Patient presents with clinical signs and symptoms consistent with malnourishment and deconditioning, imbalance related to said diagnosis with neuropathy, with admitting diagnoses of GI bleed that have resulted in mobility limitations, generalized weakness, and overall ADL decline, as demonstrated by the following impairment level findings: Poor balance, global weakness Impairments are contributing to the following functional limitations: Unsteady gait, poor tolerance to functionally efficient ambulation distance, high fall risk. Patient requires skilled PT intervention to achieve below goals to attend to functional limitation deficits, improve safety with functional attempts, and achieve achieve below goals. Patient is assessed as Moderate complexity based on the following: History: Per above social history and medical history Examination: See assessment Presentation: Evolving Decision Making:?Easy Requires case management assist for connections for phone service for safety for EMS call, and to arrange [facility] transportation for medical apts, grocery ect, nutrition consultation. Goals: Goals X1 week Independent gait of 50 ft on level surface with use of LSC Stair negotiation of 12 steps, with independence, 1 rail Stage 4 balance of 2 seconds at least with all activities Maintain balance with WBOS with dynamic UE movement and trunk rotation movements Plan of Care/Treatment Plan: 1-2x/day, 7 days/week x 1 week. Plan of care has been reviewed with the STATION INSTALLER AND REPAIRER providing the service under Physical Therapy direction. Initiate Physical Therapy intervention for pain management as needed, strengthening, bed mobility, transfers, gait, stairs, balance training, and use of assistive device. DISCHARGE RECOMMENDATIONS: ? Home with services HHPT for fall prevention and muscle building, nutrition guidance TREATMENT CODE(s): 22647 Treatment TIME: 30 min
--- NOTE | 2023-06-14 11:50 | W.PM.PROGNOT ---
Date of Service Date of service: 06/14/23 Time of Service: 11:51 Assessment and Plan Assessment and plan (1) GI bleed due to NSAIDs: Status: Acute Assessment and plan: Hemoglobin and hematocrit have been stable and he remains hemodynamically stable reasonable for outpatient GI work-up Continue PPI. Consider surgical consult if unstable otherwise will defer for outpatient evaluation (2) Severe anxiety: Status: Acute Assessment and plan: Currently not on any medication. He does not have a primary care provider will need to establish with the help of case management again. He assures me he will follow-up moving forward. Orders placed for clonazepam and hydroxyzine as per old MAR but more recently he was on Valium again he has no prescriptions at this time as he has no primary care provider this was prescribed in the emergency department we will continue clonazepam and hydroxyzine for now. (3) Diabetes mellitus type 2 in nonobese: Status: Acute Assessment and plan: Hemoglobin A1c is greater than 13. He is been prescribed metformin but again he has no prescriptions available he has he has not followed up with primary care provider will obtain diabetes education consult, continue diabetic diet with sliding scale coverage before meals and at bedtime (4) Neuropathy: Status: Acute Assessment and plan: Due to uncontrolled diabetes mellitus. He has been treating himself with aspirin will not continue this while hospitalized as he is admitted for acute GI bleed. Consider gabapentin but will need to be established with primary care provider for now will attempt glucose management.. (5) Failure to thrive in adult: Status: Acute Assessment and plan: Likely contributing is his severe anxiety. Also noted to have pulmonary nodule on his abdominal CT. Did receive contrasted CT yesterday will wait for Thursday and obtain CAT scan of the chest for malignancy work-up. (6) Tobacco abuse: Status: Acute Assessment and plan: Smoking cessation discussed as this is likely contributing to his neuropathy. Will order nicotine replacement while hospitalized (7) Discharge planning issues: Status: Acute Assessment and plan: Case management will be consulted for discharge planning. He needs to be established with a primary care provider. At this time he is agree able to this plan and states he will follow-up. No DVT prophylaxis in setting of acute GI bleed. Admission discussed with Dr. Molina Subjective Subjective Patient reports: no new complaints, tolerating liquids well and afebrile; denies shortness of breath Exam Const General: no acute distress, disheveled, frail appearing and ill appearing chronically Nutritional Appearance: cachectic Orientation: alert, awake and oriented x3 HENMT Head: normal to inspection, normocephalic and atraumatic Face and sinus: normal facial exam Neck Neck: normal visual inspection, full ROM and no JVD Resp Effort & Inspection: normal respiratory effort Auscultation: no rales and no rhonchi Cardio Rate: regular rate and not tachycardic Rhythm: regular rhythm GI Inspection: normal to inspection Palpation: soft and nontender Skin General skin exam: no rashes or lesions noted Neuro General: patient alert, patient awake and patient oriented x3 Extrem General: normal to inspection, full ROM and no pedal edema Objective Last Vital Signs Temp 36.4 C 06/14/23 07:51 Pulse 85 06/14/23 07:51 Resp 16 06/14/23 07:51 BP 139/82 06/14/23 07:51 Pulse Ox 100 06/14/23 07:51 Laboratory Results - last 24 hr 06/13/23 06/13/23 06/13/23 09:30 14:00 14:28 WBC RBC Hgb Hct MCV MCH MCHC RDW Plt Count MPV Immature Gran % Neutrophils % Lymphocytes % Monocytes % Eosinophils % Basophils % Nucleated RBC % Absolute Neutrophils Absolute Lymphocytes Absolute Monocytes Absolute Eosinophils Absolute Basophils PT INR Sodium Potassium Chloride Carbon Dioxide Anion Gap BUN Creatinine Est GFR (CKD-EPI 2020) Glucose Hemoglobin A1c Calcium Magnesium Vitamin B12 Folate TSH Urine Color Yellow Urine Clarity Clear Urine pH 7.5 Ur Specific Lorane 1.015 Urine Protein Negative Urine Ketones 15 H Urine Blood Negative Urine Nitrite Negative Urine Bilirubin Negative Urine Urobilinogen 1.0 H Ur Leukocyte Esterase Negative Urine Glucose >=1000 H COVID-19 Source Nasal/Nares SARS-CoV-2 (PCR) Negative Patient ABO/Rh A Positive Antibody Screen NEGATIVE 06/13/23 06/13/23 06/14/23 14:32 16:08 08:19 WBC 5.44 RBC 4.47 Hgb 12.5 L 13.3 L Hct 36.8 L 38.3 L MCV 86 MCH 29.8 MCHC 34.7 RDW 13.2 Plt Count 174 MPV 8.5 Immature Gran % 1.3 Neutrophils % 65.5 Lymphocytes % 21.7 Monocytes % 9.6 Eosinophils % 1.3 Basophils % 0.6 Nucleated RBC % 0.0 Absolute Neutrophils 3.57 Absolute Lymphocytes 1.18 L Absolute Monocytes 0.52 Absolute Eosinophils 0.07 Absolute Basophils 0.03 PT 11.0 INR 1.1 Sodium 134 L Potassium 3.1 L Chloride 100 Carbon Dioxide 26.0 Anion Gap 8.0 BUN 7 Creatinine 0.7 Est GFR (CKD-EPI 2020) 100.37 Glucose 245 H Hemoglobin A1c > 13.0 H Calcium 9.2 Magnesium 1.8 Vitamin B12 430 Folate 10.1 TSH 2.47 Urine Color Urine Clarity Urine pH Ur Specific Lorane Urine Protein Urine Ketones Urine Blood Urine Nitrite Urine Bilirubin Urine Urobilinogen Ur Leukocyte Esterase Urine Glucose COVID-19 Source SARS-CoV-2 (PCR) Patient ABO/Rh Antibody Screen Time Spent with Patient Time Spent with Patient: 25-34 minutes Time was spent: preparing to see the patient(eg.review tests), obtaining and/or reviewing separately otained hiistory, ordering medications,tests, procedures, indepentently interpreting results and counseling the patient
[2023-06-14 15:24] VITALS: BP 121/65; PULSE 95; RESP 17; TEMP 35.5; O2SAT 99
[2023-06-14] MEDS: Nicotine 21 MG/24 HR PATCH TD (21:03)
[2023-06-14] MEDS: POTASSIUM CHLORIDE 20 MEQ/100 ML BAG 50 MEQ IVPB ×2 (21:05→23:33)
[2023-06-14 23:20] VITALS: BP 126/82; PULSE 88; RESP 16; TEMP 36.3; O2SAT 100
[2023-06-15 07:07] LABS: Abs Immature Grans 0.04 10^3/uL (0.0-0.06); Absolute Basophil Count 0.01 10^3/uL (0.0-0.2); Absolute Eosinophil Count 0.05 10^3/uL (0.0-0.7); Absolute Lymphocyte Count 1.03 10^3/uL (1.2-3.4); Absolute Monocyte Count 0.46 10^3/uL (0.1-0.8); Absolute Neutrophil Count 3.42 10^3/uL (1.2-6.7); Basophils % 0.2; HCT 35.1 % (40.0-50.0); HGB 12.4 g/dL (13.5-17.5); Immature Grans % 0.8; Lymphocytes % 20.6; MCH 29.8 pg (27.0-33.0); MCHC 35.3 % (32.0-36.0); MCV 84 fL (80-95); MPV 8.9 fL (8.0-11.0); Monocytes % 9.2; Neutrophils % 68.2; Platelet Count 152 10^3/uL (130-400); RBC 4.16 10^6/uL (4.36-5.78); RDW 13.1 % (11.8-14.1); RDW-SD 40.1 fL; WBC 5.01 10^3/uL (4.4-10.8)
[2023-06-15 07:45] VITALS: BP 112/69; PULSE 101; RESP 18; TEMP 35.9; O2SAT 99
[2023-06-15 07:50] LABS: Anion Gap 8.3 mmol/L (3-11); BUN 6 mg/dL (7-18); CO2 24.7 mmol/L (21.0-32.0); CREATININE 0.6 mg/dL (0.70-1.30); Calcium 8.7 mg/dL (8.5-10.1); Chloride 101 mmol/L (98-107); Estimated GFR 105.15 (mL/min/1.73m2); Glucose 338 mg/dL (74-106); Magnesium 1.9 mg/dL (1.8-2.4); Potassium 3.9 mmol/L (3.5-5.1); Sodium 134 mmol/L (136-145)
[2023-06-15] MEDS: Pantoprazole 40 MG VIAL IVP ×2 (07:51→20:48)
[2023-06-15] MEDS: Insulin Aspart 300 UNITS/3 ML PEN SC ×3 (07:51→21:01)
[2023-06-15] MEDS: Cyanocobalamin 500 MCG TAB 1000 MCG PO (07:51)
[2023-06-15] MEDS: Normal Saline Flush 10 ML SYR IVP ×2 (07:52→20:49)
[2023-06-15 08:01] LABS: Vitamin D 25 Total 15.4 ng/mL (30-100)
--- NOTE | 2023-06-15 09:17 | W.PM.PROGNOT ---
Date of Service Date of service: 06/15/23 Time of Service: 09:18 Assessment and Plan Assessment and plan (1) GI bleed due to NSAIDs: Status: Acute Assessment and plan: Hemoglobin and hematocrit have been stable and he remains hemodynamically stable reasonable for outpatient GI work-up Continue PPI. Consider surgical consult if unstable otherwise will defer for outpatient evaluation (2) Severe anxiety: Status: Acute Assessment and plan: Currently not on any medication. He does not have a primary care provider will need to establish with the help of case management again. He assures me he will follow-up moving forward. Orders placed for clonazepam and hydroxyzine as per old MAR but more recently he was on Valium again he has no prescriptions at this time as he has no primary care provider this was prescribed in the emergency department we will continue clonazepam and hydroxyzine for now. (3) Diabetes mellitus type 2 in nonobese: Status: Acute Assessment and plan: BG > 300 this AM , Hemoglobin A1c is greater than 13. He is been prescribed metformin; he has no prescriptions available.He has not followed up with primary care provider.C diabetes education consult completed Will continue diabetic diet, FSBS, with sliding scale coverage before meals and at bedtime Urine ketons 15 on 06/13, will recheck today; Amaral not look like in acidosis but VBG ordered (4) Neuropathy: Status: Acute Assessment and plan: Due to uncontrolled diabetes mellitus. He has been treating himself with aspirin will not continue this while hospitalized as he is admitted for acute GI bleed.; no further NSAIDs on discharge Will consider gabapentin but will need to be established with primary care provider for now will continue to attempt glucose management. (5) Failure to thrive in adult: Status: Acute Assessment and plan: Calm today, eating well Decrease anxiety. Also noted to have pulmonary nodule on his abdominal CT. Did receive contrasted CT yesterday will have to f/u with PCP the chest for malignancy work-up. (6) Tobacco abuse: Status: Acute Assessment and plan: Smoking cessation discussed as this is likely contributing to his neuropathy. Will order nicotine replacement while hospitalized Chest CT following chest nodule finding on abdominal CT shows cavitation, nodules. -Pulmonary consultation ordered. (7) Discharge planning issues: Status: Acute Assessment and plan: Case management will be consulted for discharge planning. LINDSEY is givng the patient community resources to assist him in being compliant with PCP allocation and appointment No DVT prophylaxis in setting of acute GI bleed. Admission discussed with Dr. Rojas Subjective Subjective Patient reports: no new complaints, feels better, tolerating liquids well, tolerating a regular diet, voiding w/o difficulty, flatus, bowel movement (black X2), diarrhea and afebrile; denies still having pain, nausea, vomiting or shortness of breath Exam Narrative Exam Narrative: Constitutional The patient is sitting in chair comfortable and cooperative during the interview. The patient is without acute distress and appears cachectic. HENMT: Head is atraumatic, normocephalic, no lymphadenopathy. Eyes: Well aligned, moderatlely sunken, intact ROM Neck: Normal ROM, no meningeal signs Neuro:alert and oriented to self, person, place time and situation. No neurological focal deficit, Chest:Chest is symmetrical , intercostal spaces and bony structures visible Resp: Normal respiratory pattern, speaks in full sentences, unlabored breathing, clear lung bilaterally Cardio: regular rhythm, S1, S2, no murmur, capillary refill<3 sec., bilateral radial and dorsalis pedis pulses are positive, palpable GI: Abdomen is concave, soft and non tender, bowel sounds are hyperactive : Negative Costovertebral angle tenderness, no bladder distension Back/spine/Pelvis: No back tenderness, normal alignment Integumentary: multiple skin lesions and tears in diverse healing process ( acquired TOOL AND DIE REPAIR) Extremities: strength 4/5 to bilateral lower and upper extremities Psych: RASS 0, congruent mood and normal affect. Objective Last Vital Signs Temp 35.9 C L 06/15/23 07:45 Pulse 101 H 06/15/23 07:45 Resp 18 06/15/23 07:45 BP 112/69 06/15/23 07:45 Pulse Ox 99 06/15/23 07:45 Laboratory Results - last 24 hr 06/15/23 06:58 WBC 5.01 RBC 4.16 L Hgb 12.4 L Hct 35.1 L MCV 84 MCH 29.8 MCHC 35.3 RDW 13.1 Plt Count 152 MPV 8.9 Immature Gran % 0.8 Neutrophils % 68.2 Lymphocytes % 20.6 Monocytes % 9.2 Eosinophils % 1.0 Basophils % 0.2 Nucleated RBC % 0.0 Absolute Neutrophils 3.42 Absolute Lymphocytes 1.03 L Absolute Monocytes 0.46 Absolute Eosinophils 0.05 Absolute Basophils 0.01 Sodium 134 L Potassium 3.9 Chloride 101 Carbon Dioxide 24.7 Anion Gap 8.3 BUN 6 L Creatinine 0.6 L Est GFR (CKD-EPI 2020) 105.15 Glucose 338 H Calcium 8.7 Magnesium 1.9 25-OH Vitamin D Total 15.4 L Time Spent with Patient Time Spent with Patient: >50 minutes Time was spent: preparing to see the patient(eg.review tests), ordering medications,tests, procedures, referring, communicating with other health critical care educator, indepentently interpreting results, counseling the patient and care coordination
--- NOTE | 2023-06-15 10:56 | W.NUTCONSULT ---
Date of service: 06/15/23 Time of Service: 10:00 Nutritional Consult ASSESSMENT: Consult - Diabetes Education Mr Olivo sitting in his chair upon visit to his room. He was admitted for a GI bleed s/d to [facility], and has PMH of DMII which is currently uncontrolled with A1C >13% 06/13/23. His BMI indicates underweight and upon brief nutrition-focused physical exam, has obvious fat loss noticed within orbital region (sunken, hollow, dark circles, loose skin) tricep/upper arm and muscle loss around temporal and clavicular regions - indicating sever malnutrition. Mr Olivo notes that his weight was closer to 175pounds 6 months ago, indicating close to 60 pound wt loss. He sites that he cannot stand on his feet for more than 5 minutes to prep food due to his neuropathy. He lives alone and does his own meal prep. He gets boxed food items from [employer] program and states this comes twice per month. His P[place] was [place] [facility] [place] and he was going to move down there to be closer to provider but his life got complicated and did not move. He has not been taking metformin as prescribed, does not check glucose at home. Suspect insulin resistance also plays a part in his current malnourished status. He states his appetite has gown since admission (having turkeywith gravy, potatoes and carrots for lunch today even though he states he is lacto-ovo vegetarian) ordered appropriately for consistent carb diet. NUTRITIONAL DIAGNOSIS: Severe Malnutrition due to inability to prepare meals due to neuropathy pain and uncontrolled diabetes as evidenced by a reported wt loss of ~60 pounds over the last 6 months, as well as finding from [facility]. INTERVENTION: Pt agreeable to glucerna supplement on every meal tray (told to focus on food first and then drink shake or if full can save for a snack between meals) . Would recommend liquid concentrate protein TID ordered as RX to supply 45g protein daily to supplement po intake from meals and glucerna) MONITORING AND EVALUATION: will monitor intake, labs, weight and and instruct kitchen staff to offer high kcal/protein food choices. will follow up with mr Olivo in 24-48 hours to follow up Time Spent in Nutritional Counseling and Treatment: 30 minutes
[2023-06-15] MEDS: Normal Saline - Diluent 50 ML VIAL IJ (11:23)
[2023-06-15] MEDS: Omnipaque 350 MG/ML 500 ML BTL-Imaging package 70 ML IJ (11:23)
--- NOTE | 2023-06-15 11:28 | DI.CT_ITS ---
Exam(s) CT CHEST W EXAM: CT CHEST W CLINICAL HISTORY: cachetic, pulmonary nodule. TECHNIQUE: Multi planar reconstructions were performed. CONTRAST MATERIAL: Omnipaque 350; 75 cc COMPARISON: CT CT ABDOMEN PELVIS W from 06/13/2023 FINDINGS: CHEST: Patient is cachectic LUNGS: There is a prominent area of partially cavitated infiltrate in the right upper lobe, either in fectious or malignant or a combination thereof. Lower down in the right lung-right middle middle lob e there is a nodular density which corresponds to the finding seen on the recent abdominal CT scan, t his nodular density measuring approximately 1.9 x 0.9 cm. No other right middle lobe findings. Ther e are no significant focal findings in the right lower lobe, with the exception of mild increased nod ular markings in the superior segment of the right lower lobe. There is also patchy infiltrate in th e posterior segment of the right upper lobe adjacent to the upper aspect of the major fissure. No si gnificant findings in the right mainstem bronchus. Left mainstem bronchus is also clear. There are no focal infiltrates nor nodules in the left lung. There are no pleural effusions on either side. MEDIASTINUM: There is no hilar nor mediastinal adenopathy. Visualized thyroid unremarkable. CARDIAC: Heart size is normal. There is no pericardial effusion.Caliber thoracic aorta is within nor mal limits. No evidence of dissection. VISUALIZED UPPER ABDOMEN:No adrenal masses. OSSEOUS: No significant osseous lesions.. IMPRESSION: 1. Large cavity extending from the right retrosternal region laterally, not associated with rib destr uction nor pleural effusion. There are, however, multiple smaller nodular infiltrates none in the po sterior segment of the right upper lobe as well as within the right middle lobe. There is relative s paring of the right lower lobe and no significant focal findings in the opposite-left lung. There ar e no pleural effusions nor intrathoracic adenopathy. 2. Patient is cachectic. 3. No osseous lesions. No fractures evident. There is no rib destruction in the region of the right upper lobe mass/infiltrate. RADIATION DOSE DELIVERED: Total DLP DATA REPOSITORY: All CT scans at this facility are submitted to the National Radiology Data Registry (NRDR) Dose Index Registry (DIR) with the [employer] (ACR). RADIATION OPTIMIZATION: All CT scans at this facility use at least one of these dose optimization te chniques: automated exposure control; mA and/or kV adjustment per patient size (includes targeted exa ms where dose is matched to clinical indication); or iterative reconstruction.
[2023-06-15 12:54] LABS: BE (Venous) 2 mmol/L (-2-3); HCO3 (Venous) 27 mmol/L (23-28); O2 Sat (Venous) 30 %; TCO2 (Venous) 25 mmol/L (24-29); pCO2 (Venous) 50 mmHg (41-51); pH (Venous) 7.35 (7.31-7.41); pO2 (Venous) 21 mmHg
[2023-06-15 15:04] VITALS: BP 116/74; PULSE 98; RESP 16; TEMP 37; O2SAT 100
[2023-06-15] MEDS: Protein Nutritional Supplement 16 GM 1 OUNCE PACKET PO ×2 (16:04→20:49)
--- NOTE | 2023-06-15 16:25 | W.PALLCONSUL ---
Date of service: 06/15/23 Time of Service: 14:00 History of Present Illness Narrative: Mr. Valdez is a 68 y/o M currently inpt at [facility] 2/2 GI bleed, hyperglycemia, FTT; PMHx sig for DM Hospital course: José Miguel has presented to [facility] emergency room 8 times since December. Most recent ED presentation on June 13 with chief complaint dark stools x1 week, work-up consistent with GI bleed c/b NSAID (ASA) use, lung nodule identified on chest x-ray and weight loss. Admitted for observation with concern of failure to thrive. Labs have remained stable throughout observation, with new dip in hemoglobin from 13.3-12.4 today, ongoing hyperglycemia, managed with insulin. Chest CT scheduled today. Diabetes education consult pending. Urology to be followed outpatient after scan found calcifications and prostate enlargement. PT evaluation recommends discharge home with home health PT per staff: ED presentations related to anxiety, hyperglycemia. Had a psych evaluation in January with a referral to [facility], he ended up opting out of transfer. He does not have a PCP in community, issues with medication adherence and outpatient follow-up. He does not have a phone. He is connected with [facility] and lives at [place] [facility] housing in [place]. He is continue to be weak, using forearm crutches for ambulation, is a standby assist. Independent with ADLs. Eating 75% of all meals over the last day, appetite has been good, reports he said I forget to eat at home José Miguel reports peripheral neuropathy pain Is limiting function, has noticed with decreased blood sugars his pain has been slightly better. Pain limits ability to stand for too long, needs frequent rests, which has resulted in increased weakness. He has never tried any nerve agents, reports was taking aspirin 3 tabs up to 4 times a day to help with pain, did not notice effect on pain, is aware that this is because of stomach ulcer. - DM: He is aware he has diabetes and that it is uncontrolled, reports was consistently taking metformin until he ran out, has lately been stretching it by taking less and day to make medication last. Admits that sometimes he does get dizzy or confused, has been unable to correlate it with blood sugars. He is aware that he is receiving insulin now, wonders if he will have to have insulin outpatient. Would like to do slow medicine and trial taking medications consistently first. Would want education from art educator - resp: Reports smokes organic tobacco, handrolled, 8 to 10/day, is aware that had CT of lungs today, unaware of purpose, would want to have work-up done to identify cancer, including biopsy. Denies difficulty breathing today or changes in cough - Function: Weakness and pain limited ability to perform daily functions in home, is aware that PT has recommended home health, while he has some concerned over home environment, is agreeable to getting help in home. - Sleep: Reports sleeping on rundown futon, increased difficulty getting out of bed. Wonders about if eligible for hospital bed -appetite: Denies concerns with appetite. Feels he is able to eat enough. Meals provided through food from [employer] program, does require some light preparation which most of the time he is able to do. Social: he does not have a phone, Is hopefully working with [facility] or community connections to get a new phone. Reports does not interact, however it does not work well all the time. His son and daughter both lives out of state, he keeps in contact with them via email, they are not aware that he is in the hospital right now and he is comfortable with waiting until he returns home before feeling the middle of everything. Has supportive neighbor who checks in on him, was able to use his phone to call 911 ACP: He would like to continue to live to be age, 89 years old. Increasing access to care would increase his ability to take care of his health and manage his diabetes, which she is aware is a significant risk factor for premature . He has not seen primary care in recent years, is aware that it had previously been set up, however due to not feeling well he was unable to go and unable to contact because he did not have a phone. Getting a phone is a top priority. Unable to line up [facility] rides without phone, reliant on [facility] for outpatient appointments -He would want to know if he has cancer, would want work-up to identify potential life limiting illnesses -Was having troubles with medication delivery, preference for [facility] moving forward due to not needing to call them, can email which is his preferred communication. Is comfortable with mailed appointment letters, does not check mailbox often Assessment and Plan Assessment and plan (1) Discharge planning issues: Status: Acute Assessment and plan: Potentially ready for discharge, pending lab stability, recent drop in H/H, continue to trend and follow No PCP needs assistance with scheduling; encourage CM team to have PCP appointment with [facility] transportation prior to discharge (2) Tobacco abuse: Status: Acute Assessment and plan: No plans for cessation today Reviewed increased risk for respiratory illness (3) Failure to thrive in adult: Status: Acute Assessment and plan: Weight loss of 5 pounds since December 2022 decreased mobility and increased weakness concerns Noncompliant with medication, multifactorial (4) Neuropathy: Status: Acute Assessment and plan: Uncontrolled, improved with glycemic control Consider gabapentin in future visits (5) Diabetes mellitus type 2 in nonobese: Status: Acute Assessment and plan: Uncontrolled, last A1c greater than 13 reviewed briefly need for ongoing insulin per guideline recommendations Has not been consistently taking metformin, no PCP. Preference for slow medicine with minor adjustments DM educator consult pending, he would like to learn more about his diabetes (6) GI bleed due to NSAIDs: Status: Acute Assessment and plan: On PPI Reviewed avoiding NSAIDs and importance of taking prescribed medications to avoid if remains stable and he remains hemodynamically stable reasonable for outpatient GI work-up Consider surgical consult if unstable otherwise will defer for outpatient evaluation (7) Severe anxiety: Status: Acute Assessment and plan: Continue clonazepam and hydroxyzine Need for PCP follow-up for ongoing management (8) Weight loss: Status: Acute Assessment and plan: Encourage increased p.o. intake Dietary pending Multifactorial (9) Pulmonary infiltrate in right lung on chest x-ray: Status: Acute Assessment and plan: Chest CT ordered today, results pending Reviewed process for determining CT, increased respiratory risk with ongoing tobacco use (10) Need for home health care: Status: Acute Assessment and plan: Agreeable to home health referral Recommend PT, RN, OT, NATURAL GAS TREATING UNIT OPERATOR (11) Financial difficulties: Status: Acute Assessment and plan: Enrolled in [facility] referral placed Need for assistance with phone and potentially improving Internet (12) ACP (advance care planning): Status: Acute Assessment and plan: Reviewed diabetes, peripheral neuropathy, oncology work-up; reviewed goal to continue to live as long as possible, importance of PCP and regular follow-up, monitoring symptoms and early intervention He would want to [id number] outcomes Spent 25 minutes with ACP (13) Enlarged prostate: Status: Acute Assessment and plan: Per initial work-up follow-up outpatient urology appropriate Encouraged urology follow-up scheduled with [facility] transportation prior to discharge (14) Palliative care encounter: Status: Acute Assessment and plan: PC to continue to follow, follow-up home visit in the afternoon on Thursday or Thursday, PC to coordinate with CM prior to discharge, appropriate to mail letter home - continue to review advance directive, CODE STATUS, Concerns with failure to thrive, diabetes control, pain control Review of Systems Narrative: As per HPI PFSH All Active Problems (Updated 06/15/23 @ 16:52 by Leslie Jewell NP) Palliative care encounter (Acute) Enlarged prostate (Acute) ACP (advance care planning) (Acute) Financial difficulties (Acute) Need for home health care (Acute) Tobacco abuse (Acute) Discharge planning issues (Acute) Failure to thrive in adult (Acute) Neuropathy (Acute) Diabetes mellitus type 2 in nonobese (Acute) GI bleed due to NSAIDs (Acute) Severe anxiety (Acute) Weight loss (Acute) Pulmonary infiltrate in right lung on chest x-ray (Acute) Surgical History Hx of liver transplant Social History Smoking/Tobacco Use Status: Current every day Tobacco Type: cigarettes Years smoked: 55 Tobacco: How many years used: 45 Quit status: not considering quitting Second Hand Exposure: Yes Smoking risk assessment performed?: Yes Alcohol Intake: current Alcohol Intake frequency: holidays/special occasions only Details: 2-4 times per month, 1-2 at a time Drug use: Occasionally Substance use type: marijuana Adopted: No Caregiver/Support person: No Household members: none Housing: apartment Number of Children: 2 number of grandchildren: 2 Communication Needs: Corrective Lenses Education Level: high school Do you need help understanding health information?: Rarely current occupation: Retired Pets and animals: Yes (Fish) Sexually active: Yes Do you think of yourself as: straight/heterosexual Current gender identity: male What is your relationship status?: How often do you talk on the phone with friends or family?: never How often do you get together with friends or relatives?: twice per week Do you belong to any clubs or organized social groups?: no Panel score (0-1 are the most socially isolated patients): 0 What type of physical activity do you participate in: none Bernarda/Jainism: None Special bernarda needs: No Seatbelt use: always Helmet use: Yes Drive intox or ride w/intox spike driver: No Do you feel safe at home: Yes Do you feel safe in your relationship?: Yes Additional Social history: [facility] Exam Narrative Exam Narrative: General: Older appearing than stated age, cachectic, thin, cooperative AAO x3; HEENT: normocephalic atraumatic, hearing grossly normal Resp: Even and unlabored, able to speak full sentences without shortness of breath. No audible cough or wheeze Skin: Thin and dry, did not conduct full skin exam Psych: Pleasant, makes appropriate eye contact; speech moving clear ; thought process impoverished ; judgment/insight fair to poor Results Last Vital Signs Temp 98.6 F 06/15/23 15:04 Pulse 98 H 06/15/23 15:04 Resp 16 06/15/23 15:04 BP 116/74 06/15/23 15:04 Pulse Ox 100 06/15/23 15:04 Labs 06/15/23 06:58 06/15/23 06:58 Labs: Laboratory Results - last 24 hr 06/15/23 06/15/23 06:58 12:48 WBC 5.01 RBC 4.16 L Hgb 12.4 L Hct 35.1 L MCV 84 MCH 29.8 MCHC 35.3 RDW 13.1 Plt Count 152 MPV 8.9 Immature Gran % 0.8 Neutrophils % 68.2 Lymphocytes % 20.6 Monocytes % 9.2 Eosinophils % 1.0 Basophils % 0.2 Nucleated RBC % 0.0 Absolute Neutrophils 3.42 Absolute Lymphocytes 1.03 L Absolute Monocytes 0.46 Absolute Eosinophils 0.05 Absolute Basophils 0.01 VBG pH 7.35 VBG pCO2 50 VBG pO2 21 VBG HCO3 27 VBG Total CO2 25 VBG O2 Saturation 30 VBG Base Excess 2 Sodium 134 L Potassium 3.9 Chloride 101 Carbon Dioxide 24.7 Anion Gap 8.3 BUN 6 L Creatinine 0.6 L Est GFR (CKD-EPI 2020) 105.15 Glucose 338 H Calcium 8.7 Magnesium 1.9 25-OH Vitamin D Total 15.4 L
--- NOTE | 2023-06-15 16:39 | PDOC.CMPRO ---
Date of service: 06/15/23 Time of Service: 16:39 Care Management Progress Note Progress Note Text Progress Note Text: S/O: José Miguel was meeting with palliative care when CM attempted to meet with him. Per report, he had a CT of the chest today, awaiting results. He met with palliative care today at length and discussed his goals of care. Per report, José Miguel's diabetes has not been well controlled, as he has not been able to comply with medication needs secondary to not having a PCP. CM has attempted to set him up with a PCP in the past, and he was unable to attend the appointments. José Miguel does not have a phone, which is a barrier. CM sent a referral to [facility], although unclear if there are any supports for this in the community. CM called [facility] to set up hospital follow up appointment; they were unable to make the appointment at that time, but stated that they will call the office tomorrow to make the appointment. CM also requested that [facility] review José Miguel for their diabetes management program and food resources. He may benefit from new PT, although he does not currently have a PCP who will follow the orders. CM will continue to follow. A: José Miguel is a 68 year old male admitted to [facility] on 06/13/23 for GI bleed. P: Anticipate José Miguel will return home when medically cleared. He will transport via [facility] private vehicle. He will follow up with the plastic tubing insulation supervisor provider, and his discharge plan of care. CM will continue to follow.
[2023-06-15 17:12] LABS: Bilirubin Negative (Negative); Blood Negative (Negative); Clarity Clear (Clear); Glucose 500 mg/dL (Negative); Ketones Negative (Negative); Leukocyte Esterase Negative (Negative); Nitrite Negative (Negative); Specific Gravity 1.015 (1.005-1.025); Urobilinogen 0.2 mg/dL (Up to 0.2)
[2023-06-15 21:17] VITALS: BP 130/80; PULSE 96; RESP 16; TEMP 36; O2SAT 99
--- NOTE | 2023-06-16 06:54 | W.PULMCON ---
General Date Of Service Date of service: 06/16/23 Time of Service: 06:55 Reason for Consult: Cavitary lung lesion Assessment and Plan Assessment and plan (1) Cavitary lesion of lung: Status: Acute (2) Tobacco abuse: Status: Acute Assessment and plan: This is a 68 yo whom I was consulted for a cavitary lung lesion. There was a concern for TB, however he has no symptoms nor does he have any high risk contacts. I think he can come off airborne precautions. Differential for this lesion include: infection (fungal, bacterial) although this seems unlikely given his history. Other options include inflammatory (RA, vasculitis) or malignant. I worry about this being a cancer given his history. We discussed this in depth. I will order blood and urine testing to help rule out infectious and inflammatory causes but will order him for a PET/CT. I do not think he is well enough to undergo bronchoscopy at [facility] given his body habitus and GI bleed. Depending on the PET/CT we will discuss option moving forward (lobectomy, EBUS biopsy, etc). Cavitary lung lesion - Quanteferon and AFB sputum pending (not producing sputum so ok to cancel AFB) - can come off airborne precautions - BIANKA, RF, anti-ccp, ANCA - procalitonin, fungitell, urine histo and blasto - flow cytometry - PET CT in [place] - I have ordered this - fu with me in clinic after D/C Smoking - cessation recommended - should be enrolled in LDCT screening starting 1 year after recent scan History of Present Illness Narrative: This is a 68 yo admitted for a GI bleedwho had a A/P CT which found a RML nodule prompting a chest CT. The chest CT finds a large cavitated lesion in the anterior RUL (not middle lobe as read on report), a cluster of small nodules in the apico-posterior RUL and a 1.2cm solid nodule in the RML. There is no chest LAD present. He does not really have any prior imaging, aside from a 2007 CXR, in which I cannot see any lesions. A Quanteferon and AFB has been ordered. He is a smoker (6-8 hand rolled a day) currently but has smoked for 55 years. He has severe cachexia that he attributes to his neuropathy and inability to stand for long in order to prepare food. He does note his appetite has been decreased. 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 he states he has joint pain in his lower back and he notes his mother also had issues with arthritis. He think he has had one colonoscopy in the past but it was a long time ago. He has not participated in lung cancer screening. He denies cough, fever, increased dyspnea or hemoptysis. He has no TB contacts nor a high TB risk environment. Review of Systems All systems reviewed & are unremarkable except as noted in HPI and below PFSH All Active Problems (Updated 06/16/23 @ 07:08 by Bella Leon MD) Cavitary lesion of lung (Acute) Palliative care encounter (Acute) Enlarged prostate (Acute) ACP (advance care planning) (Acute) Financial difficulties (Acute) Need for home health care (Acute) Tobacco abuse (Acute) Discharge planning issues (Acute) Failure to thrive in adult (Acute) Neuropathy (Acute) Diabetes mellitus type 2 in nonobese (Acute) GI bleed due to NSAIDs (Acute) Severe anxiety (Acute) Weight loss (Acute) Pulmonary infiltrate in right lung on chest x-ray (Acute) Surgical History Hx of liver transplant Social History Smoking/Tobacco Use Status: Current every day Tobacco Type: cigarettes Years smoked: 55 Tobacco: How many years used: 45 Quit status: not considering quitting Second Hand Exposure: Yes Smoking risk assessment performed?: Yes Alcohol Intake: current Alcohol Intake frequency: holidays/special occasions only Details: 2-4 times per month, 1-2 at a time Drug use: Occasionally Substance use type: marijuana Adopted: No Caregiver/Support person: No Household members: none Housing: apartment Number of Children: 2 number of grandchildren: 2 Communication Needs: Corrective Lenses Education Level: high school Do you need help understanding health information?: Rarely current occupation: Retired Pets and animals: Yes (Fish) Sexually active: Yes Do you think of yourself as: straight/heterosexual Current gender identity: male What is your relationship status?: How often do you talk on the phone with friends or family?: never How often do you get together with friends or relatives?: twice per week Do you belong to any clubs or organized social groups?: no Panel score (0-1 are the most socially isolated patients): 0 What type of physical activity do you participate in: none Bernarda/Restorationist: None Special bernarda needs: No Seatbelt use: always Helmet use: Yes Drive intox or ride w/intox water tanker driver: No Do you feel safe at home: Yes Do you feel safe in your relationship?: Yes Additional Social history: [employer] Visit Medication and Allergies Active Medications Generic Name Dose Route Start Last Admin Trade Name Freq PRN Reason Stop Dose Admin Clonazepam 0.5 mg 06/14/23 08:07 Clonazepam 0.5 Mg Tab PO BID PRN PRN Cyanocobalamin 1,000 mcg 06/14/23 08:30 06/15/23 07:51 Cyanocobalamin 500 Mcg Tab PO 1,000 mcg DAILY JAD Administration Dextrose 0 gm 06/14/23 08:06 Glucose Oral Gel 15 Gm/37.5 Gm Tube PO DIRECTED PRN Dextrose/Water 0 gm 06/14/23 08:06 Dextrose 50%-Water 25 Gm/50 Ml Syr IVP DIRECTED PRN Hydroxyzine HCl 25 mg 06/14/23 08:07 Hydroxyzine Hcl 25 Mg Tab PO BID PRN PRN IV Miscellaneous Supplies 1 each 06/14/23 08:30 Iv Access IV DIRECTED [facility] Insulin Aspart 0 units 06/14/23 08:10 06/15/23 21:01 Insulin Aspart 300 Units/3 Ml Pen SC 5 units 0800,1200,1700,2200 [facility] Administration Protocol Iohexol 70 ml 06/15/23 11:30 06/15/23 11:23 Omnipaque 350 Mg/Ml 500 Ml Btl-Imaging Package IJ 07/15/23 23:59 70 ml DIRECTED [facility] Administration Multi-Ingredient Supplement 1 ounce 06/15/23 14:00 06/15/23 20:49 Protein Nutritional Supplement 16 Gm 1 Ounce Packet PO 1 ounce TID JAD Administration Nicotine 21 mg 06/14/23 08:18 06/14/23 21:03 Nicotine 21 Mg/24 Hr Patch TD 21 mg DAILY PRN PRN Administration Pantoprazole Sodium 40 mg 06/13/23 20:00 06/15/23 20:48 Pantoprazole 40 Mg Vial IVP 40 mg BID JAD Administration Sodium Chloride 0 ml 06/14/23 08:21 06/15/23 20:49 Normal Saline Flush 10 Ml Syr IVP 10 ml PRN PRN Administration Sodium Chloride 50 ml 06/15/23 11:30 06/15/23 11:23 Normal Saline - Diluent 50 Ml Vial IJ 50 ml .FOR DI USE JAD Administration Allergies No Known Allergies Allergy (Unverified 06/13/23 09:45) Exam Narrative Exam Narrative: Gen: NAD, normal respiratory effort, cachetic HENT: PERRL Chest: No respiratory distress, normal appearance of chest, diminished breath sounds Heart: regular rate and rhythym, no murmurs, rubs or gallops Abdomen: Non-distended, soft, non tender Extremities: No clubbing, edema, cyanosis, rashes Neuro: AAOx3 , non focal Psych: cooperative, appropriate mental affect Results Last Vital Signs Temp 36 C L 06/15/23 21:17 Pulse 96 H 06/15/23 21:17 Resp 16 06/15/23 21:17 BP 130/80 06/15/23 21:17 Pulse Ox 99 06/15/23 21:17 Labs 06/15/23 06:58 06/15/23 06:58 Labs: Laboratory Results - last 24 hr 06/15/23 06/15/23 06/15/23 06:58 12:48 16:45 WBC 5.01 RBC 4.16 L Hgb 12.4 L Hct 35.1 L MCV 84 MCH 29.8 MCHC 35.3 RDW 13.1 Plt Count 152 MPV 8.9 Immature Gran % 0.8 Neutrophils % 68.2 Lymphocytes % 20.6 Monocytes % 9.2 Eosinophils % 1.0 Basophils % 0.2 Nucleated RBC % 0.0 Absolute Neutrophils 3.42 Absolute Lymphocytes 1.03 L Absolute Monocytes 0.46 Absolute Eosinophils 0.05 Absolute Basophils 0.01 VBG pH 7.35 VBG pCO2 50 VBG pO2 21 VBG HCO3 27 VBG Total CO2 25 VBG O2 Saturation 30 VBG Base Excess 2 Sodium 134 L Potassium 3.9 Chloride 101 Carbon Dioxide 24.7 Anion Gap 8.3 BUN 6 L Creatinine 0.6 L Est GFR (CKD-EPI 2020) 105.15 Glucose 338 H Calcium 8.7 Magnesium 1.9 25-OH Vitamin D Total 15.4 L Urine Color Yellow Urine Clarity Clear Urine pH 7.0 Ur Specific [place] 1.015 Urine Protein Negative Urine Ketones Negative Urine Blood Negative Urine Nitrite Negative Urine Bilirubin Negative Urine Urobilinogen 0.2 Ur Leukocyte Esterase Negative Urine Glucose 500 H
[2023-06-16 07:46] VITALS: BP 129/85; PULSE 90; RESP 18; TEMP 36.2; O2SAT 99
[2023-06-16 08:04] LABS: Abs Immature Grans 0.07 10^3/uL (0.0-0.06); Absolute Basophil Count 0.01 10^3/uL (0.0-0.2); Absolute Eosinophil Count 0.07 10^3/uL (0.0-0.7); Absolute Lymphocyte Count 1.14 10^3/uL (1.2-3.4); Absolute Monocyte Count 0.42 10^3/uL (0.1-0.8); Basophils % 0.2; Eosinophils % 1.4; HGB 12.6 g/dL (13.5-17.5); Immature Grans % 1.4; Lymphocytes % 23.2; MCH 30.7 pg (27.0-33.0); MCV 85 fL (80-95); MPV 9.2 fL (8.0-11.0); Monocytes % 8.6; Neutrophils % 65.2; Platelet Count 174 10^3/uL (130-400); RDW 13.3 % (11.8-14.1); RDW-SD 41.5 fL; WBC 4.91 10^3/uL (4.4-10.8)
[2023-06-16] MEDS: Pantoprazole 40 MG VIAL IVP (08:41)
[2023-06-16] MEDS: Cyanocobalamin 500 MCG TAB 1000 MCG PO (08:41)
[2023-06-16] MEDS: Protein Nutritional Supplement 16 GM 1 OUNCE PACKET PO (08:41)
[2023-06-16] MEDS: Normal Saline Flush 10 ML SYR IVP (08:42)
[2023-06-16] MEDS: Nicotine 21 MG/24 HR PATCH TD (08:50)
[2023-06-16 09:31] LABS: Procalcitonin 0.2 ng/mL
--- NOTE | 2023-06-16 10:24 | DSE_ITS ---
Date of service: 06/16/23 Time of Service: 10:24 DS: Diagnosis Discharge Diagnosis (1) Cavitary lesion of lung: Status: Acute (2) Tobacco abuse: Status: Acute Discharge Plan Disposition Patient Disposition: Home W/Home Health Services Condition: Fair Discharge Details Reason For Visit: GI Bleed Admit Date/Time: 06/13/23 12:46 Admit Provider: Flor Molina Attending Provider: Flor Molina Primary Care Provider: None,None Hospital Course Hospital Course: This 68-year-old male patient with no primary care provider, noncompliant with medical plan arranged on previous ED visit, with a history of diabetes mellitus currently on no treatment, and current history of tobacco abuse reported to the ED at [facility] on 06/14/23 for evaluation of black loose stools. He reported taking aspirin for feet pain. In the ED his vital signs were stable and his rectal exam was positive for occult blood without karen blood. The remarkable labs in the ED were hemoglobin and hematocrit at 13.5 and 39.1, glucose 392 and hemoglobin A1C at 13. His abdominal CT was unremarkable except for solitary pulmonary nodule finding requiring a follow-up with chest CT. The patient was treated with intravenous Protonix. The hospitalist was consulted and the patient was admitted for evaluation and treatment of gastrointestinal bleeding. During the hospitalization, hemoglobin and hematocrit stabilized at 12.6 and 35.0. ?The patient will be discharged sucralfate and pantoprazole. Metformin is reordered to manage his diabetes. Chest CT showed prominent area of partially cavitated infiltrate in the right upper lobe and nodular lesions. The public health officer consulted on the patient and ordered PET scan and follow-up upon completion. The patient has a follow-up appointment arranged with primary care on 06/17 at 12:30. Follow-up also needed from the surgical office. Home Meds and New Rx's Prescriptions: New pantoprazole [Protonix] 40 mg tablet,delayed release (DR/EC) 40 mg PO DAILY Qty: 30 0RF sucralfate [Carafate] 1 gram tablet 1 g PO QAC Qty: 90 0RF Continued hydroxyzine HCl 25 mg tablet 25 mg PO BID PRNQty: 10 0RF Patient Comments: supposed to take but unable to get scripts from [facility] metformin 500 mg tablet 500 mg PO TID Qty: 90 0RF Patient Comments: supposed to take but unable to get scripts from [facility] No Action clonazepam 0.5 mg tablet 0.5 mg PO PRN PRN Hold Instructions: Prescription Finished Patient Comments: supposed to take but unable to get scripts from [facility] Rx Instructions: TAKE 1 TABLET NEEDED FOR PANIC ATTACKS Discharge Instructions Stand Alone Forms: Nursing Discharge Form Referrals: GODWIN ALLRED NP [ NON-[facility] STAFF PHYSICIAN] - 06/17/23 12:30 pm Bella Leon MD [ [facility] STAFF PHYSICIAN] - (T 68 yo male admitted for a GI bleed . A/P CT which found a RML nodule prompting a chest CT. The chest CT finds a large cavitated lesion in the anterior RUL (not middle lobe as read on report), a cluster of small nodules in the apico-posterior RUL and a 1.2cm solid nodule in the RML. PET scan ordered in [place], inflammatory and infectious makers ordered) Cassandra Honeycutt DO [OSTEOPATHIC DOCTOR] - (This 68-year-old male patient with a history of diabetes mellitus currently on no treatment, and current history of tobacco abuse reported to the ED at [facility] on 06/14/23 for evaluation of black loose stools. He reported taking aspirin for feet pain. H&H stabilized at 12.6- 35.0 on discharge day 06/16.) Activity:: Activity as Tolerated Equipment/Supplies:: No Equipment Needed Diet:: Diabetes Consistent CHO DS: Summary Time Spent with Patient providing and/or coordinating discharge services: Greater than 30 minutes Status at Discharge Functional status at discharge: uses cane/walker Overall status at discharge: patient is not back to baseline Mental Status: mental status grossly normal Speech and Movement: speech and movement normal Mood: congruent mood Affect: normal affect Exam Narrative Exam Narrative: Constitutional The patient is in bed comfortable and cooperative during the interview. The patient is without acute distress and cachectic. HENMT: Head is atraumatic Eyes: Well aligned, moderatlely sunken Neck: Normal ROM, no meningeal signs Neuro:alert and oriented to self, person, place time and situation. 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 Psych Mental Status: mental status grossly normal Speech and Movement: speech and movement normal Mood: congruent mood Affect: normal affect DS: Data Vitals/I&O Vitals and I&O: Vital Signs Temperature 36.2 C L 06/16/23 07:46 Temperature Source Tympanic 06/16/23 07:46 Pulse 90 06/16/23 07:46 Pulse Rhythm Regular 06/16/23 01:27 Pulse 66 06/13/23 15:40 Respiratory Rate 18 06/16/23 07:46 Respiratory Effort Normal, Non-Labored 06/16/23 01:27 Respiratory Depth Shallow 06/16/23 01:27 Respiratory Pattern Normal 06/16/23 01:27 Blood Pressure 129/85 06/16/23 07:46 Blood Pressure Mean 117 06/13/23 16:01 Blood Pressure Position Supine 06/13/23 09:32 Pulse Oximetry 99 06/16/23 07:46 Oxygen Delivery Method Room Air 06/16/23 07:46 Oxygen Flow Rate 0 06/16/23 07:46 Pain Level 0 06/16/23 08:39 Comment Pt. denies pain at this time. 06/16/23 08:39 Intake & Output 06/15/23 06/15/23 06/16/23 11:59 23:59 11:59 Intake Total 320 / 700 380 / 700 480 / 480 Output Total 1150 / 2150 1000 / 2150 800 / 800 Balance -830 / -1450 -620 / -1450 -320 / -320 Intake: IV 120 / 140 20 / 140 Oral 200 / 560 360 / 560 480 / 480 Output: Urine 1150 / 2150 1000 / 2150 800 / 800 Other: Urine Color Yellow Yellow Yellow Urine Appearance Clear Clear Clear Urine Odor None Normal Comment pT stated that he was helped to use bathroom. Pt. given anaya wipes and a clean urinal. Pt. instructed to use the wipes prior to next void and to void in the clean urinal and to then ring the call lr when finished, since provider ordered a urine specimen to be collected. Pt. verbalized understanding. Voiding Methods Urinal Toilet Bedside Commode Data Completed and Pending Labs on day of discharge: Labs from last 24 hours 06/16/23 06/16/23 06/16/23 Unknown 07:25 07:06 WBC 4.91 RBC 4.10 L Hgb 12.6 L Hct 35.0 L MCV 85 MCH 30.7 MCHC 36.0 RDW 13.3 Plt Count 174 MPV 9.2 Immature Gran % 1.4 Neutrophils % 65.2 Lymphocytes % 23.2 Monocytes % 8.6 Eosinophils % 1.4 Basophils % 0.2 Nucleated RBC % 0.0 Absolute Neutrophils 3.20 Absolute Lymphocytes 1.14 L Absolute Monocytes 0.42 Absolute Eosinophils 0.07 Absolute Basophils 0.01 VBG pH VBG pCO2 VBG pO2 VBG HCO3 VBG Total CO2 VBG O2 Saturation VBG Base Excess Procalcitonin 0.2 Urine Color Urine Clarity Urine pH Ur Specific [place] Urine Protein Urine Ketones Urine Blood Urine Nitrite Urine Bilirubin Urine Urobilinogen Ur Leukocyte Esterase Urine Glucose Rheumatoid Factor Pending Cyclic Citrull Peptide Pending BIANKA Titer Pending BIANKA Titer 2 Pending BINAKA Titer 3 Pending BIANKA Interpretation Pending Proteinase 3 (PR3) Pending Myeloperoxidase Ab Pending Lymph/Leukemia Panel Pending TB Test Ag - Nil 1 Pending TB Test Ag - Nil 2 Pending TB Test (QFT) Interp Pending AFB Source Pending AFB Bld Cult Final Res Pending AFB Report Status Pending B-(1,3)-D-Glucan Quant Pending B-(1,3)-D-Glucan Qual Pending 06/15/23 06/15/23 16:45 12:48 WBC RBC Hgb Hct MCV MCH MCHC RDW Plt Count MPV Immature Gran % Neutrophils % Lymphocytes % Monocytes % Eosinophils % Basophils % Nucleated RBC % Absolute Neutrophils Absolute Lymphocytes Absolute Monocytes Absolute Eosinophils Absolute Basophils VBG pH 7.35 VBG pCO2 50 VBG pO2 21 VBG HCO3 27 VBG Total CO2 25 VBG O2 Saturation 30 VBG Base Excess 2 Procalcitonin Urine Color Yellow Urine Clarity Clear Urine pH 7.0 Ur Specific [place] 1.015 Urine Protein Negative Urine Ketones Negative Urine Blood Negative Urine Nitrite Negative Urine Bilirubin Negative Urine Urobilinogen 0.2 Ur Leukocyte Esterase Negative Urine Glucose 500 H Rheumatoid Factor Cyclic Citrull Peptide BIANKA Titer BIANKA Titer 2 BIANKA Titer 3 BIANKA Interpretation Proteinase 3 (PR3) Myeloperoxidase Ab Lymph/Leukemia Panel TB Test Ag - Nil 1 TB Test Ag - Nil 2 TB Test (QFT) Interp AFB Source AFB Bld Cult Final Res AFB Report Status B-(1,3)-D-Glucan Quant B-(1,3)-D-Glucan Qual PFSH All Active Problems (Updated 06/16/23 @ 07:08 by Bella Leon MD) Cavitary lesion of lung (Acute) Palliative care encounter (Acute) Enlarged prostate (Acute) ACP (advance care planning) (Acute) Financial difficulties (Acute) Need for home health care (Acute) Tobacco abuse (Acute) Discharge planning issues (Acute) Failure to thrive in adult (Acute) Neuropathy (Acute) Diabetes mellitus type 2 in nonobese (Acute) GI bleed due to NSAIDs (Acute) Severe anxiety (Acute) Weight loss (Acute) Pulmonary infiltrate in right lung on chest x-ray (Acute) Surgical History Hx of liver transplant Social History Smoking/Tobacco Use Status: Current every day Tobacco Type: cigarettes Years smoked: 55 Tobacco: How many years used: 45 Quit status: not considering quitting Second Hand Exposure: Yes Smoking risk assessment performed?: Yes Alcohol Intake: current Alcohol Intake frequency: holidays/special occasions only Details: 2-4 times per month, 1-2 at a time Drug use: Occasionally Substance use type: marijuana Adopted: No Caregiver/Support person: No Household members: none Housing: apartment Number of Children: 2 number of grandchildren: 2 Communication Needs: Corrective Lenses Education Level: high school Do you need help understanding health information?: Rarely current occupation: Retired Pets and animals: Yes (Fish) Sexually active: Yes Do you think of yourself as: straight/heterosexual Current gender identity: male What is your relationship status?: How often do you talk on the phone with friends or family?: never How often do you get together with friends or relatives?: twice per week Do you belong to any clubs or organized social groups?: no Panel score (0-1 are the most socially isolated patients): 0 What type of physical activity do you participate in: none Bernarda/Adventist: None Special bernarda needs: No Seatbelt use: always Helmet use: Yes Drive intox or ride w/intox armored truck driver: No Do you feel safe at home: Yes Do you feel safe in your relationship?: Yes Additional Social history: [employer] Time Spent with Patient Time Spent with Patient: 70-84 minutes4 Time was spent: preparing to see the patient(eg.review tests), obtaining and/or reviewing separately otained hiistory, ordering medications,tests, procedures, referring, communicating with other health care technician, indepentently interpreting results, counseling the patient and care coordination
[2023-06-16] MEDS: Insulin Aspart 300 UNITS/3 ML PEN SC ×2 (12:21→17:19)
[2023-06-16 14:50] VITALS: BP 120/78; PULSE 107; RESP 18; TEMP 36.9; O2SAT 99
--- NOTE | 2023-06-16 16:27 | CMDISCH_ITS ---
Date of service: 06/16/23 Time of Service: 15:00 LACE Index Scoring Tool Questions: Length of Stay (in days): 3 Was the patient admitted via the E.D.?: Yes Comorbidities: Diabetes w/o Complication E.D. Visits: 7 Answers: Total Score: 11 Risk of Readmission: High Risk Care Management Discharge Plan Reason for Hospitalization: GI bleed Discharge Plan: José Miguel will return home with a new follow up with Adelaide Rodriguez at [facility]. Referral completed to [place] called to talk with José Miguel-LINDSEY coordinated contact, to review attaining a phone through [facility] and follow up with [place] clinical coordinator at [facility]. José Miguel was referred for RICARDO LIZ CM, support with attaining a phone and transportation. He will also need to follow up with [facility]monary [facility] once he is able to attain a phone, with service connection. Patient/Family Education Needs: Review discharge instructions, discuss Ask Me Three.
[2023-06-16 19:01] LABS: Rheumatoid Factor <8.6 IU/mL (<12.0)
[2023-06-17 09:21] LABS: Cyclic Citrullinated Peptide <2.5 U/mL (<5.0)
[2023-06-17 12:45] LABS: Leukemia/Lymphoma by FC (Blood (See below)
[2023-06-17 14:27] LABS: ANA Interpretation Negative (Negative)
[2023-06-17 16:17] LABS: Myeloperoxidase Ab IgG <0.2 U; Proteinase 3 Ab (PR3) <0.2 U
[2023-06-17 22:16] LABS: Fungitell Qualitative Negative (Negative); Fungitell Quantitative Value <31 pg/mL (<60 pg/mL)
[2023-06-18 11:18] LABS: TB Interpretation Negative (Negative)
--- NOTE | 2023-06-18 15:00 | PT.INDS ---
PT Notes Visit Reasons: GI Bleed José Miguel was seen for PT evaluation only. After evaluation, he was deemed medically stable for return home, and no further PT intervention was performed during his stay. Please see IE for current functional status.
[2023-06-18 23:20] LABS: Blastomyces Ag Result Not Detected; Blastomyces Ag Value Not Detected
== END 2023-06-16 18:43 | disposition home health service (06) ==
LOC: ER 15:55 → MS 16:32
PROVIDERS: Nurse Practitioner Acute Care; Student in an Organized Health Care Education/Training Program; Admitting Provider Internal Medicine; Emergency Provider Nurse Practitioner Family; Visit Provider Internal Medicine
DX: K92.1 Melena (principal); T39.395A Adverse effect of other nonsteroidal anti-inflammatory drugs [NSAID], initial encounter; E11.42 Type 2 diabetes mellitus with diabetic polyneuropathy; F41.9 Anxiety disorder, unspecified; Z79.84 Long term (current) use of oral hypoglycemic drugs; F17.210 Nicotine dependence, cigarettes, uncomplicated; R63.4 Abnormal weight loss; Z68.1 Body mass index [BMI] 19.9 or less, adult; Z91.148 Patient's other noncompliance with medication regimen for other reason; Z94.4 Liver transplant status; R91.1 Solitary pulmonary nodule
CPT/HCPCS: 00123; 36415; 36416; 80048; 80053; 82306; 82805; 82962; 84145; 86200; 86850; 86900; 86901; 87116; 87449; 87635; 88185; 96361; 96365; 96366; 96372; 96375; 97162; 99223; 99285; 71260; 74177; 81003; 82607; 82746; 83036; 83516; 83735; 84443; 85014; 85018; 85025; 85610; 86038; 86431; 86480; 87385; 88184; 88189; 99233; 99239; G0378; J3420; J3480; J3490

== ENCOUNTER → 2023-06-16 07:57 | Outpatient (BNVA) | payer MEDICARE, SELFPAY | PROVIDERS: Visit Provider Student in an Organized Health Care Education/Training Program ==

== ENCOUNTER 2023-06-22 09:09 | Observation (INO) | payer MEDICARE, SELFPAY ==
--- NOTE | 2023-06-22 09:00 | RT.EKG_ITS ---
APPROVED REPORT Exam: Resting ECG Reason for Exam: Weakness Patient Location: E HR:101 bpm ECG Measurements Heart Rate 101 AXIS NE 141 P 76 QRSd 76 QRS 73 QT 359 T 69 QTc 465 Conclusion Sinus tachycardia...rate> 99 Atrial premature complex...SV complex w/ short R-R interval
[2023-06-22 09:11] VITALS: BP 128/79; PULSE 113; RESP 22; TEMP 36.6; O2SAT 100
--- NOTE | 2023-06-22 09:15 | DI.CT_ITS ---
Exam(s) CT HEAD WO EXAM: CT HEAD WO CLINICAL HISTORY: fall; head injury. TECHNIQUE: Imaging Protocol: Axial computed tomography images with coronal and sagittal reformatted images were created and reviewed COMPARISON: No exams were available for comparison FINDINGS: Exam limited by streak artifact in the bilateral frontal regions. Ventricles and Extra axial spaces: Normal in size and morphology for the patient's age. Hemorrhage: None. Cerebral parenchyma: No evidence of acute infarct or mass. Mild atrophy. Mild white matter changes of small vessel disease. Midline shift: None. Brainstem/Cerebellum: Normal. Calvarium: Normal. Visualized Paranasal sinuses/Mastoids: Clear. Soft Tissues: Unremarkable. IMPRESSION: No acute intracranial process. RADIATION DOSE DELIVERED: Total DLP DATA REPOSITORY: All CT scans at this facility are submitted to the National Radiology Data Registry (NRDR) Dose Index Registry (DIR) with the [employer] (ACR). RADIATION OPTIMIZATION: All CT scans at this facility use at least one of these dose optimization te chniques: automated exposure control; mA and/or kV adjustment per patient size (includes targeted exa ms where dose is matched to clinical indication); or iterative reconstruction.
--- NOTE | 2023-06-22 09:17 | DI.RAD_ITS ---
Exam(s) XR CHEST 1V IN DI DEPT EXAM: XR CHEST 1V IN DI DEPT CLINICAL HISTORY: weak; cough TECHNIQUE: 2D digital imaging was performed. COMPARISON: CR XR CHEST 2V PA LATERAL from 02/19/[address] CHEST W from 06/15/2023 FINDINGS: LUNGS: Thick walled cavitary nodule with some surrounding infiltrates again noted inferior right uppe r lobe. Grossly unchanged when compared with prior CT. Lung celestin are otherwise clear. Hyperinfla tion. No pleural abnormality seen. HEART: Normal size. AORTA: Normal diameter. BONES: Unremarkable for age. Soft tissues: Unremarkable. IMPRESSION: Stable cavitary lesion right upper lobe. DATA REPOSITORY: RADIATION DOSE DELIVERED:
--- NOTE | 2023-06-22 09:20 | W.ED.GENAD ---
Discharge Plan Disposition Patient Disposition: Admit to [facility] Condition: Stable Discharge Details Clinical Impression: Hyperglycemia, Weakness Primary Care Provider: None,None ED Provider: Gary Byrd Home Meds and New Rx's Prescriptions: No Action hydroxyzine HCl 25 mg tablet 25 mg PO BID PRNQty: 10 0RF Patient Comments: supposed to take but unable to get scripts from [facility] metformin 500 mg tablet 500 mg PO TID Qty: 90 0RF Patient Comments: supposed to take but unable to get scripts from [facility] clonazepam 0.5 mg tablet 0.5 mg PO PRN PRN Hold Instructions: Prescription Finished Patient Comments: supposed to take but unable to get scripts from [facility] Rx Instructions: TAKE 1 TABLET NEEDED FOR PANIC ATTACKS sucralfate [Carafate] 1 gram tablet 1 g PO QAC Qty: 90 0RF Hold Instructions: Pt Stopped/Never Started HPI General Date/Time Provider Initiated Documentation: 06/22/23 09:10. HPI Narrative: 68 year old male with hx of DM, severe anxiety, presents to the ED via EMS after neighbor called when pt fell walking over to neighbors, reportedly because he wanted EMS to be called because he felt weak. The neighbor helped him up and called 911. Pt denies any injuries from fall, but did hit his head. He is vague about particular sx's, stating he just doesn't feel good. He is on Metformin for his DM, states he has been taking it as prescribed, denies missing any doses, EMS noted BS ~480. He has had numerous visits to the ED in the past, most recently about 3 weeks ago, and advised to get pcp and mental health provider, pt says he has not contacted anyone because he can't. Related Data Home Medications Medication Instructions Recorded Confirmed hydroxyzine HCl 25 mg tablet 25 mg PO BID PRN #10 tabs 01/19/23 06/22/23 clonazepam 0.5 mg tablet 0.5 mg PO PRN PRN 02/19/23 06/22/23 metformin 500 mg tablet 500 mg PO TID #90 tabs 04/14/23 06/22/23 sucralfate 1 gram tablet (Carafate) 1 g PO QAC #90 tabs 06/16/23 06/22/23 Previous Rx's Medication Instructions Recorded hydroxyzine HCl 25 mg tablet 25 mg PO BID PRN #10 tabs 01/19/23 metformin 500 mg tablet 500 mg PO TID #90 tabs 04/14/23 sucralfate 1 gram tablet (Carafate) 1 g PO QAC #90 tabs 06/16/23 Allergies Allergy/AdvReac Type Severity Reaction Status Date / Time No Known Allergies Allergy Unverified 06/22/23 09:21 General Stated Complaint: Fall/Non TraumaCriteria JERAMY: 3 Review of Systems Narrative: CONST: no fever or chills. +weakness HEENT: no sore throat SKIN: no rashes PULM: no sob, +cough CARD: no cp, no palpitations ABD: no abd pain EXTR: no swelling NEURO: No focal weakness PFSH All Active Problems (Updated 06/22/23 @ 16:38 by Gary Byrd MD) Weakness (Acute) Hyperglycemia (Acute) Cavitary lesion of lung (Acute) Diabetes mellitus type 2 in nonobese (Acute) Medical History (Updated 06/22/23 @ 16:38 by Gary Byrd MD) Palliative care encounter Enlarged prostate Financial difficulties Need for home health care Discharge planning issues Failure to thrive in adult Neuropathy GI bleed due to NSAIDs Severe anxiety Weight loss Pulmonary infiltrate in right lung on chest x-ray Surgical History Hx of liver transplant Social History Smoking/Tobacco Use Status: Current every day Tobacco Type: cigarettes Years smoked: 55 Tobacco: How many years used: 45 Quit status: not considering quitting Second Hand Exposure: Yes Smoking risk assessment performed?: Yes Alcohol Intake: current Alcohol Intake frequency: holidays/special occasions only Details: 2-4 times per month, 1-2 at a time Drug use: Occasionally Substance use type: marijuana Adopted: No Caregiver/Support person: No Household members: none Housing: apartment Number of Children: 2 number of grandchildren: 2 Communication Needs: Corrective Lenses Education Level: high school Do you need help understanding health information?: Rarely current occupation: Retired Pets and animals: Yes (Fish) Sexually active: Yes Do you think of yourself as: straight/heterosexual Current gender identity: male What is your relationship status?: How often do you talk on the phone with friends or family?: never How often do you get together with friends or relatives?: twice per week Do you belong to any clubs or organized social groups?: no Panel score (0-1 are the most socially isolated patients): 0 What type of physical activity do you participate in: none Bernarda/Uatsdin: None Special bernarda needs: No Seatbelt use: always Helmet use: Yes Drive intox or ride w/intox water truck driver: No Do you feel safe at home: Yes Do you feel safe in your relationship?: Yes Additional Social history: [employer] Exam Narrative Exam Narrative: Const: disheveled, thin and cachectic, shaking HEENT: normocephalic, atraumatic; MMM Lungs: CTA, no wheezing or rales Heart: Regular, tachycardia Abd: soft, NT/ND Ext: well perfused Neuro: non-focal Skin: no rashes Course 68 yo male with issues DM, severe anxiety, and poor f/u as out-pt, with c/o generalized weakness, and not feeling well. He notably is hyperglycemic and says taking his metformin, so will need labs, ivf, and further eval in ED. Reevaluation(s) Initial Evaluation: Pt with elevated BS, but otherwise work-up unremarkable. workday manager in the ED to see pt, checking with pcp office he had appt to see, will see about new appt and then arrange transportation. Also, pt states his cell phone is broke, so working on this as well. Reevaluation: [id number] - case management got appt with pcp, ThursdayJun 26 at 3:50, and arranged already for [facility] to pick him up at 3:30. Pt stating now that he is too weak to walk or care for himself, so PT consult ordered. Reevaluation #2: PT eval'd pt, states she feels pt unsafe to go home. I called and spoke to the hospitalist, will accept on service. Vital Signs Vital signs: Vital Signs Temperature 36.6 C 06/22/23 09:11 Pulse 113 H 06/22/23 09:11 Respiratory Rate 22 06/22/23 09:11 Blood Pressure 128/79 06/22/23 09:11 Pulse Oximetry 100 06/22/23 09:11 Temperature 36.6 C 06/22/23 09:11 Temperature Source Tympanic 06/22/23 09:11 Pulse 113 H 06/22/23 09:11 Respiratory Rate 22 06/22/23 09:11 Respiratory Effort Normal 06/22/23 09:19 Blood Pressure 128/79 06/22/23 09:11 Blood Pressure Position Sitting 06/22/23 09:11 Pulse Oximetry 100 06/22/23 09:11 Oxygen Delivery Method Room Air 06/22/23 09:11 Oxygen Flow Rate 0 06/22/23 09:11 Pain Level 0 06/22/23 09:11
[2023-06-22] MEDS: Normal Saline 1,000 ML 1000 ML IV ×2 (09:40→11:34)
[2023-06-22 09:42] LABS: BE (Venous) 2 mmol/L (-2-3); HCO3 (Venous) 26 mmol/L (23-28); O2 Sat (Venous) 48 %; TCO2 (Venous) 24 mmol/L (24-29); pCO2 (Venous) 42 mmHg (41-51); pH (Venous) 7.41 (7.31-7.41); pO2 (Venous) 25 mmHg
[2023-06-22 09:44] LABS: Abs Immature Grans 0.08 10^3/uL (0.0-0.06); Absolute Basophil Count 0.03 10^3/uL (0.0-0.2); Absolute Eosinophil Count 0.04 10^3/uL (0.0-0.7); Absolute Lymphocyte Count 0.89 10^3/uL (1.2-3.4); Absolute Monocyte Count 0.59 10^3/uL (0.1-0.8); Absolute Neutrophil Count 3.78 10^3/uL (1.2-6.7); Basophils % 0.6; Eosinophils % 0.7; HCT 37.9 % (40.0-50.0); Immature Grans % 1.5; Lymphocytes % 16.5; MCH 29.3 pg (27.0-33.0); MCHC 34.3 % (32.0-36.0); MCV 86 fL (80-95); MPV 9.2 fL (8.0-11.0); Monocytes % 10.9; Neutrophils % 69.8; Platelet Count 216 10^3/uL (130-400); RBC 4.43 10^6/uL (4.36-5.78); RDW 13.7 % (11.8-14.1); RDW-SD 42.7 fL; WBC 5.41 10^3/uL (4.4-10.8)
[2023-06-22 09:48] LABS: Lactate 4.5 mmol/L (0.6-1.4)
[2023-06-22 10:07] LABS: ALT 19 U/L (16-63); AST 26 U/L (15-37); Albumin 3.2 g/dL (3.4-5.0); Alkaline Phosphatase 103 U/L (46-116); Anion Gap 11.5 mmol/L (3-11); BUN 11 mg/dL (7-18); Bilirubin, Total 0.5 mg/dL (0.2-1.0); CO2 25.5 mmol/L (21.0-32.0); CREATININE 0.9 mg/dL (0.70-1.30); Calcium 9.8 mg/dL (8.5-10.1); Chloride 96 mmol/L (98-107); ETHANOL BLOOD < 3.0 mg/dL (<10); Estimated GFR 93.03 (mL/min/1.73m2); Glucose 498 mg/dL (74-106); Potassium 3.7 mmol/L (3.5-5.1); Sodium 133 mmol/L (136-145); Total Protein 6.7 g/dL (6.4-8.2); Troponin I < 50 ng/L (<or=60)
[2023-06-22 10:26] LABS: COVID-19 PCR Negative (Negative); Influenza A PCR Negative (Negative); Influenza B PCR Negative (Negative); RSV PCR Negative (Negative)
[2023-06-22 10:27] LABS: Source Nasopharynx
[2023-06-22] MEDS: Insulin REGULAR-Human 100 UNITS/ML UNIT 10 UNITS SC (11:33)
[2023-06-22 12:49] LABS: Troponin I < 50 ng/L (<or=60)
--- NOTE | 2023-06-22 15:19 | NT_ITS ---
PT Notes Visit Reasons: [place] Patient unavailable. Currently eating snacks and talking with a community case investigator about securing a phone.
--- NOTE | 2023-06-22 15:19 | PT.INNT ---
PT Notes Visit Reasons: [place] Patient unavailable. Currently eating snacks and talking with a community registered nurse hh case manager about securing a phone.
--- NOTE | 2023-06-22 15:34 | CMPROGNOTE_ITS ---
Date of service: 06/22/23 Time of Service: 15:34 Care Management Progress Note Progress Note Text Progress Note Text: LINDSEY was asked by the ED provider to meet with José Miguel to discuss his barriers to self care and accessing healthcare. Central to the issue is José Miguel's lack of access to a telephone and challenges with transportation. José Miguel informed LINDSEY that he does have a cell phone but that it is broken. He has a plan through [employer] which is automatically deducted from his bank account. Nuria from [employer] also came to meet with José Miguel and plans to contact [employer] to see if there is a way he can get a replacement phone. José Miguel has not kept any of the PCP appointments made for him while at [facility]. His most recent appointment (last week) was missed because he had diarrhea. Usually it is transportation related. LINDSEY made another appointment with [facility] with Danielle Ramirez at 3:50 PM on Thursday06/26/23. LINDSEY coordinated transportation with [facility] to have José Miguel arrive at the office at 3:30. LINDSEY informed José Miguel he should be ready by 3:15 pm.
--- NOTE | 2023-06-22 15:55 | IN_ITS ---
PT Notes Visit Reasons: [facility] Physical Therapy Inpatient Initial Evaluation Date: 06/22/2023 Referring Doctor: Gary Byrd MD PT Orders: PT CONSULT: Safety Consult for D/C Precautions: Fall. Standard. Activity as tolerated. Patient Profile/Admitting Diagnosis: Patient is a 68-year-old male patient who presented to the ED today due to a fall with referral sent to PT for safety recommendations. PMHX: All Active Problems (Updated 06/22/23 @ 16:38 by Gary Byrd MD) Weakness (Acute) Hyperglycemia (Acute) Cavitary lesion of lung (Acute) Diabetes mellitus type 2 in nonobese (Acute) Medical History (Updated 06/22/23 @ 16:38 by Gayr Byrd MD) Palliative care encounter Enlarged prostate Financial difficulties Need for home health care Discharge planning issues Failure to thrive in adult Neuropathy GI bleed due to NSAIDs Severe anxiety Weight loss Pulmonary infiltrate in right lung on chest x-ray Surgical History Hx of liver transplant Social History/Home Situation: Lives alone in an apartment with 13 steps to enter with a rail on one side. A lady from a [employer] comes in once a month to bring essential grocery items for patient as he has been unable to do grocery shopping. Unable to drive. Ambulatory for a distance of 6-8 steps before needing to sit down due to worsening weakness. Unsure of whether patient has a immigration case worker in the community to advocate for patient. Equipment Owned/DME: Bilateral [place] crutches Subjective: Reports worsening weakness and inability to manage at home. Unsure why he got sent home the last time he was at this hospital. Feels unstable when he attempted to get up and walked 5 steps. Objective: General Observation: Fragile-looking, cachexic, asthenic. Telemetry monitoring in place. Mental Status: Alert and oriented as to person, place, time, and purpose. Short-term memory impairment apparent. Pain: Generalized pain Vital Signs: Closely monitored via tele ROM: Right Upper Extremity: Shoulder Flexion lacks the last 25% of AROM. Shoulder abduction lacks the last 25% of AROM. Elbow flexion WFL. Wrist flexion WFL. Functional opening and closing of hand WFL. Left Upper Extremity: Shoulder Flexion lacks the last 25% of AROM. Shoulder abduction lacks the last 25% of AROM. Elbow flexion WFL. Wrist flexion WFL. Functional opening and closing of hand WFL. Right Lower Extremity: Hip flexion lacks the last 25% of AROM. Hip abduction lacks the last 25% of AROM. Knee flexion 20 degrees to 90 degrees. Knee extension -20 degrees. Ankle dorsiflexion to neutral only. Ankle plantarflexion WFL. Left Lower Extremity: Hip flexion lacks the last 25% of AROM. Hip abduction lacks the last 25% of AROM. Knee flexion 20 degrees to 90 degrees. Knee extension -20 degrees. Ankle dorsiflexion to neutral only. Ankle plantarflexion WFL. Strength: Right Upper Extremity: Shoulder flexors 3-/5. Shoulder abductors 3-/5. Elbow flexors 3-/5. Elbow extensors 3-/5. Time Stamp Assembler weak but functional. Left Upper Extremity: Shoulder flexors 3-/5. Shoulder abductors 3-/5. Elbow flexors 3-/5. Elbow extensors 3-/5. Time Stamp Assembler weak but functional. Right Lower Extremity: Hip flexors 3-/5. Hip abductors 3-/5. Knee flexors 3-/5. Knee extensors 3-/5. Ankle dorsiflexors 3-/5. Ankle plantarflexors 3-/5. Left Lower Extremity: Hip flexors 3-/5. Hip abductors 3-/5. Knee flexors 3-/5. Knee extensors 3-/5. Ankle dorsiflexors 3-/5. Ankle plantarflexors 3-/5. Bed Mobility/Transfers: Supine to sit with minimal assist with cues for safe/correct technique Supine to sit with minimal assist with cues for safe/correct technique Sit to stand with minimal assist with cues for safe/correct technique Stand to sit with minimal assist with cues for safe/correct technique Gait: Short distance in room ambulation using walker strand crutches required minimal assist with patient only tolerating 5-6 steps due to worsening weakness, instability, and balance impairment. Deferred further testing due to safety reasons. Balance: Static Sitting: Fair Dynamic Sitting: Fair Static Standing: Fair Dynamic Standing: Fair Special Tests: Mobility Limitations Standardized Measure [facility] AM-PAC 6 clicks Basic Mobility Inpatient Short Form: Raw Score: 17 CMS Score: 51% deficit 4-Stage Balance Test: deferred due to safety reasons Informed Consent/Education: Patient was instructed in purpose of PT consult. ASSESSMENT: Patient requires the assistance of 1 person for all mobility ADL performance due to worsening generalized weakness, gait instability, decreased activity tolerance, and impaired muscle performance due to ongoing medical/nutritional status. Patient is currently unable to safely thrive home alone at home due to impairments and functional deficits listed below. Patient presents with clinical signs and symptoms consistent with current/admitting diagnoses that have resulted to mobility limitations, gait instability, generalized weakness, and overall ADL decline as demonstrated by the following impairment level findings: 1. Decreased strength to B UE/LE major muscle groups 2. Impaired sitting/standing balance 3. Impaired activity tolerance 4. Limitation of joint range of motion in B shoulders/hips/knees 5. Generalized weakness 6. Poor nutritional status Impairments are contributing to the following functional limitations: 1. Decline in bed mobility skills 2. Decline in transfer skills 3. Difficulty with ambulation without assistive device and physical assistance 4. Increased completion time for mobility ADL performance 5. Increased risk for falls 6. Difficulty with managing steps alone safely Patient is assessed as a 70239 moderate complexity based on the following: History: 68-year-old male with past medical history as indicated above Examination: Demonstrable impairment in strength, balance, and mobility level with underlying impairments and functional limitations as exhibited above as well as deficit score of 51% utilizing the [facility] Mobility Inpatient Short Form Presentation: Evolving Decision Makin moderate complexity Goals: N/A. PT evalaution only. Plan of Care/Treatment Plan: N/A. PT evaluation only. DISCHARGE RECOMMENDATIONS: [] Home with no services [] [] Home with services [specify] [] Home with outpatient PT [] [] SNF for continued rehabilitation [] [] [facility] [] [] SNF versus LTC based on ability to participate and progress [] [X] SNF vs LTC vs. PT based on progress towards goals TREATMENT CODE/TIME: 84678 x 20 minutes for 1 unit, 76714 x 15 minutes beginning at 15:55 PM. Thank you for the opportunity to participate in the care of this patient. Corry Thompson PT, DPT, CLT [facility] [place], [place]
[2023-06-22 17:09] LABS: Source Nasal/Nares
[2023-06-22 17:40] LABS: COVID-19 PCR Negative (Negative)
[2023-06-22 17:48] VITALS: BP 134/70; PULSE 90; RESP 17; TEMP 36.4; O2SAT 100
[2023-06-22 17:52] VITALS: BP 134/70; PULSE 90; RESP 17; TEMP 36.4; O2SAT 100
--- NOTE | 2023-06-22 18:08 | HPE_ITS ---
Date of service: 06/22/23 Time of Service: 18:08 Assessment and Plan Assessment and plan (1) Weakness: Status: Acute Assessment and plan: Multifactoral; Hyperglycemia, exremely low BMI, likely lung CA. PT consulted. Glucose control. Protein shake supplements. (2) Diabetes mellitus type 2 in nonobese: Status: Acute Assessment and plan: A1c >13. On metformin 500mg BID and states he has taken as directed. Add medication to his regimen in AM SS insulin correction dosing. Diabetic diet. (3) Cavitary lesion of lung: Status: Acute Assessment and plan: Pulmonary medicine consulted during last admission. A PET CT in [place] was ordered; unsure currently of when that is scheduled. QFT neg, B-(1,30-D-Glucan Quant and Qual neg. RF neg. CCP neg. BIANKA neg. PR3 neg. Myeloperoxidase Ab neg. Peripheral blood flow cytometry w/o clonal population. Blastomyces and Histo neg. Very suspicious for carcinoma in a smoker and with significant wt loos/cachexia. (4) Failure to thrive in adult: Assessment and plan: Likely d/t cancer; see above. Protein supplementation to meals. He denies anorexia. (5) Hyperglycemia: Status: Acute Assessment and plan: Presented with weakness; at least in part d/t glucose in the 400's. See DM (6) Severe anxiety: Assessment and plan: Has been prescribed clonazepam for panic attacks. Will discuss other controlling medications such as an SSRI or Buspar. (7) Discharge planning issues: Assessment and plan: Full Code No PCP despite appt made at time of discharge on 06/16/23. He did not make the appt. Palliative has seen pt. Community services. No cell phone. Multiple barriers to improving his health. (8) Peripheral neuropathy: Status: Acute Assessment and plan: Likely secondary to uncontrolled DM This does limit his mobility and activities. Lyrica could be helpful. Compliance with medications has been an issue d/t no current PCP. He failed to make the PCP appt made for him at time of discharge from [facility] on 06/16/23. (9) Tobacco use disorder: Status: Acute Assessment and plan: Rolls his own cigarettes and smokes 1-3 daily No desire to stop at this time. Does accept a nicoderm patch. History of Present Illness History of Present Illness Chief Complaint: Fall, generalized weakness N arrative: This is a 68 yo male with a PMH of severe anxiety, DM2 that was recently admitted to [facility], observation status, on 06/14-06/16/2023 for GI bleed treated with PPI. He had no PCP at the time and did not f/u with the PCP appt arranged for him after discharge from that admission. He presented this admission to the ED after falling while walking to his neighbors house. He stated he felt weak and just didn't feel good. He denied CP/palpitations. No syncope. He did strike his head but c/o no pain. EMS transported him. They noted his fingerstick blood glucose was 480. In the ED he had a normal WBC count. His Hgb was 13.0. VBG lacte 4.5. Na 133. K 3.7. Glucose 498. Anion Gap 11.5. He was administered 10 units SC insulin and 2L NS. His blood glucose over several hours improved to 92. CT head w/o acute intracranial process. CXR with stable cavitary lesion in RUL. Care management consult. PT evaluated patient in the ED and felt he was not safe to go home given his ongoing weakness/ambulatory dysfunction. Admitted for observation. PFSH All Active Problems (Updated 06/23/23 @ 07:15 by Sameer Pineda MD) Tobacco use disorder (Acute) Peripheral neuropathy (Acute) Weakness (Acute) Hyperglycemia (Acute) Cavitary lesion of lung (Acute) Diabetes mellitus type 2 in nonobese (Acute) Medical History Palliative care encounter Enlarged prostate Financial difficulties Need for home health care Discharge planning issues Failure to thrive in adult Neuropathy GI bleed due to NSAIDs Severe anxiety Weight loss Pulmonary infiltrate in right lung on chest x-ray Surgical History Hx of liver transplant Social History Smoking/Tobacco Use Status: Current every day Tobacco Type: cigarettes Years smoked: 55 Tobacco: How many years used: 45 Quit status: not considering quitting Second Hand Exposure: Yes Smoking risk assessment performed?: Yes Alcohol Intake: current Alcohol Intake frequency: holidays/special occasions only Details: 2-4 times per month, 1-2 at a time Drug use: Occasionally Substance use type: marijuana Adopted: No Caregiver/Support person: No Household members: none Housing: apartment Number of Children: 2 number of grandchildren: 2 Communication Needs: Corrective Lenses Education Level: high school Do you need help understanding health information?: Rarely current occupation: Retired Pets and animals: Yes (Fish) Sexually active: Yes Do you think of yourself as: straight/heterosexual Current gender identity: male What is your relationship status?: How often do you talk on the phone with friends or family?: never How often do you get together with friends or relatives?: twice per week Do you belong to any clubs or organized social groups?: no Panel score (0-1 are the most socially isolated patients): 0 What type of physical activity do you participate in: none Bernarda/Rastafari: None Special bernarda needs: No Seatbelt use: always Helmet use: Yes Drive intox or ride w/intox motor coach driver: No Do you feel safe at home: Yes Do you feel safe in your relationship?: Yes Additional Social history: [employer] Meds Allergies and Home Medications Allergies Allergy/AdvReac Type Severity Reaction Status Date / Time No Known Allergies Allergy Unverified 06/22/23 09:21 Home Medications Medication Instructions Recorded Confirmed Type hydroxyzine HCl 25 mg tablet 25 mg PO BID PRN #10 tabs 01/19/23 06/22/23 Rx clonazepam 0.5 mg tablet 0.5 mg PO PRN PRN 02/19/23 06/22/23 History metformin 500 mg tablet 500 mg PO TID #90 tabs 04/14/23 06/22/23 Rx sucralfate 1 gram tablet (Carafate) 1 g PO QAC #90 tabs 06/16/23 06/22/23 Rx Exam Narrative Exam Narrative: Gen: Lying supine. cachectic. Alert and conversant. HEENT: normocephalic, atraumatic; MMM, sclera clear. Lungs: Clear. Nonlabored breathing. Heart: Regular rhythm, tachycardia Abd: soft, NT/ND Ext: No edema or tenderness. Neuro: BARROS. No facial asymmetry. Skin: no rashes or lesions. Some small scattered ecchymoses. Results Labs 06/22/23 09:35 06/22/23 09:35 Labs: Laboratory Results - last 24 hr 06/22/23 06/22/23 06/22/23 09:35 09:41 12:15 WBC 5.41 RBC 4.43 Hgb 13.0 L Hct 37.9 L MCV 86 MCH 29.3 MCHC 34.3 RDW 13.7 Plt Count 216 MPV 9.2 Immature Gran % 1.5 Neutrophils % 69.8 Lymphocytes % 16.5 Monocytes % 10.9 Eosinophils % 0.7 Basophils % 0.6 Nucleated RBC % 0.0 Absolute Neutrophils 3.78 Absolute Lymphocytes 0.89 L Absolute Monocytes 0.59 Absolute Eosinophils 0.04 Absolute Basophils 0.03 VBG pH 7.41 VBG pCO2 42 VBG pO2 25 VBG HCO3 26 VBG Total CO2 24 VBG O2 Saturation 48 VBG Base Excess 2 VBG Lactate 4.5 H* Sodium 133 L Potassium 3.7 Chloride 96 L Carbon Dioxide 25.5 Anion Gap 11.5 H BUN 11 Creatinine 0.9 Est GFR (CKD-EPI 2020) 93.03 Glucose 498 H Calcium 9.8 Magnesium 2.0 Total Bilirubin 0.5 AST 26 ALT 19 Alkaline Phosphatase 103 Troponin I < 50 < 50 Total Protein 6.7 Albumin 3.2 L Ethyl Alcohol < 3.0 COVID-19 Source Nasopharynx SARS-CoV-2 (PCR) Negative Influenza Type A (PCR) Negative Influenza Type B (PCR) Negative RSV (PCR) Negative 06/22/23 17:00 WBC RBC Hgb Hct MCV MCH MCHC RDW Plt Count MPV Immature Gran % Neutrophils % Lymphocytes % Monocytes % Eosinophils % Basophils % Nucleated RBC % Absolute Neutrophils Absolute Lymphocytes Absolute Monocytes Absolute Eosinophils Absolute Basophils VBG pH VBG pCO2 VBG pO2 VBG HCO3 VBG Total CO2 VBG O2 Saturation VBG Base Excess VBG Lactate Sodium Potassium Chloride Carbon Dioxide Anion Gap BUN Creatinine Est GFR (CKD-EPI 2020) Glucose Calcium Magnesium Total Bilirubin AST ALT Alkaline Phosphatase Troponin I Total Protein Albumin Ethyl Alcohol COVID-19 Source Nasal/Nares SARS-CoV-2 (PCR) Negative Influenza Type A (PCR) Influenza Type B (PCR) RSV (PCR) Last Vital Signs Temp 36.4 C L 06/22/23 17:52 Pulse 90 06/22/23 17:52 Resp 17 06/22/23 17:52 BP 134/70 06/22/23 17:52 Pulse Ox 100 06/22/23 17:52 Time Spent Time spent with Patient: 40-54 minutes Time was spent: preparing to see the patient(eg.review tests), obtaining and/or reviewing separately otained hiistory, ordering medications,tests, procedures, referring, communicating with other health patient care secretary, indepentently interpreting results, counseling the patient and care coordination
[2023-06-22] MEDS: clonazePAM 0.5 MG TAB PO (21:31)
[2023-06-22] MEDS: Nicotine 21 MG/24 HR PATCH TD (21:33)
[2023-06-23] MEDS: Insulin Aspart 300 UNITS/3 ML PEN SC ×2 (00:01→07:49)
[2023-06-23 04:20] VITALS: BP 125/68; PULSE 90; RESP 18; TEMP 36; O2SAT 100
[2023-06-23 06:44] LABS: Lactate 1.1 mmol/L (0.6-1.4)
[2023-06-23 07:06] LABS: Anion Gap 7.9 mmol/L (3-11); BUN 10 mg/dL (7-18); CO2 27.1 mmol/L (21.0-32.0); CREATININE 0.5 mg/dL (0.70-1.30); Calcium 8.8 mg/dL (8.5-10.1); Chloride 101 mmol/L (98-107); Glucose 245 mg/dL (74-106); Potassium 3.3 mmol/L (3.5-5.1); Sodium 136 mmol/L (136-145)
[2023-06-23 07:35] VITALS: BP 133/82; PULSE 99; RESP 22; TEMP 36.1; O2SAT 100
[2023-06-23] MEDS: metFORMIN 500 MG TAB PO ×2 (07:49→11:08)
--- NOTE | 2023-06-23 09:50 | IN_ITS ---
PT Notes Visit Reasons: Hyperglycemia, generalized weakness, fall Physical Therapy Inpatient Initial Evaluation Date: 06/23/2023 Referring Doctor: Sameer Pineda MD PT Orders: PT CONSULT: Safety Consult for D/C Precautions: Fall. Standard. Activity as tolerated. Patient Profile/Admitting Diagnosis: Patient is a 68-year-old male patient who presented to the ED today due to a fall who was admitted to [facility] same day for management of geenralized weakness, DM Type II, cavitary lesion of lung, failure to thrive, hyperglycemia, severe anxiety, peripheral neuropathy, and tobacco use disorder. PMHX: All Active Problems (Updated 06/23/23 @ 07:15 by Sameer Pineda MD) Tobacco use disorder (Acute) Peripheral neuropathy (Acute) Weakness (Acute) Hyperglycemia (Acute) Cavitary lesion of lung (Acute) Diabetes mellitus type 2 in non-obese (Acute) Medical History Palliative care encounter Enlarged prostate Financial difficulties Need for home health care Discharge planning issues Failure to thrive in adult Neuropathy GI bleed due to NSAIDs Severe anxiety Weight loss Pulmonary infiltrate in right lung on chest x-ray Surgical History Hx of liver transplant Social History/Home Situation: Lives alone in an apartment with 13 steps to enter with a rail on one side. A lady from a [employer] organization comes in once a month to bring essential grocery items for patient as he has been unable to do grocery shopping. Unable to drive. Ambulatory for a distance of 6-8 steps before needing to sit down due to worsening weakness. Unsure of whether patient has a family independence case manager in the community to advocate for patient. Equipment Owned/DME: Bilateral Lofstrand crutches Subjective: Feels much better. No longer shaky and unstable with movement. Much more able to tolerate extendede activity level without undue fatigue. Objective: General Observation: Fragile-looking, cachexic, asthenic, very low BMI. Mental Status: Alert and oriented as to person, place, time, and purpose. Short-term memory impairment apparent. Pain: None reported Vital Signs: Closely monitored via tele ROM: Right Upper Extremity: Shoulder Flexion lacks the last 25% of AROM. Shoulder abduction lacks the last 25% of AROM. Elbow flexion WFL. Wrist flexion WFL. Functional opening and closing of hand WFL. Left Upper Extremity: Shoulder Flexion lacks the last 25% of AROM. Shoulder abduction lacks the last 25% of AROM. Elbow flexion WFL. Wrist flexion WFL. Functional opening and closing of hand WFL. Right Lower Extremity: Hip flexion lacks the last 25% of AROM. Hip abduction lacks the last 25% of AROM. Knee flexion 20 degrees to 90 degrees. Knee extension -20 degrees. Ankle dorsiflexion to neutral only. Ankle plantarflexion WFL. Left Lower Extremity: Hip flexion lacks the last 25% of AROM. Hip abduction lacks the last 25% of AROM. Knee flexion 20 degrees to 90 degrees. Knee extension -20 degrees. Ankle dorsiflexion to neutral only. Ankle plantarflexion WFL. Strength: Right Upper Extremity: Shoulder flexors 3-/5. Shoulder abductors 3-/5. Elbow flexors 3-/5. Elbow extensors 3-/5. [employer] weak but functional. Left Upper Extremity: Shoulder flexors 3-/5. Shoulder abductors 3-/5. Elbow flexors 3-/5. Elbow extensors 3-/5. [employer] weak but functional. Right Lower Extremity: Hip flexors 3-/5. Hip abductors 3-/5. Knee flexors 3-/5. Knee extensors 3-/5. Ankle dorsiflexors 3-/5. Ankle plantarflexors 3-/5. Left Lower Extremity: Hip flexors 3-/5. Hip abductors 3-/5. Knee flexors 3-/5. Knee extensors 3-/5. Ankle dorsiflexors 3-/5. Ankle plantarflexors 3-/5. Bed Mobility/Transfers: Supine to sit with independent Supine to sit with independent Sit to stand with independent with bilateral [place] crutches, PT holding up crutches for patient for stability Stand to sit with independent bilateral [employer] crutches, PT holding up crutches for patient for stability Gait: Facilitated safe and correct level surface ambulation using bilateral Lofstrand crutches for 40 feet + 50 feet + 80 feet requiring stand by assist with 3 seated rests needed to prevent further fatigue. 4-point gait pattern. Posture more upright and more stable compared to yesterday. No path deviation. Stairs: Guided patient with safe and correct performance of stair negotiation of 12 x 4- inch steps and 8 x 6-inch steps whle holding onto B rails with just stand by assist, [id number] with ascent, step-to gait pattern with descent. Balance: Static Sitting: Fair Dynamic Sitting: Fair Static Standing: Fair Dynamic Standing: Fair Special Tests: Mobility Limitations Standardized Measure [facility] AM-PAC 6 clicks Basic Mobility Inpatient Short Form: Raw Score: 24 CMS Score: 0% deficit 4-Stage Balance Test: Feet together 10 seconds Semi-tandem 10 seconds Full-tandem 5 seconds One-legged stance 5 seconds Informed Consent/Education: Patient was instructed in purpose of PT consult. ASSESSMENT: With restabilization of her blood sugar to WNL, patient is better able and safe to perform mobility ADLs with signifincatly improved activity tolerance. He will benefit from PT for continued exercise progression and home safety evaluation. Patient presents with clinical signs and symptoms consistent with current/admitting diagnoses that have resulted to mobility limitations, gait instability, generalized weakness, and overall ADL decline as demonstrated by the following impairment level findings: 1. Decreased strength to B UE/LE major muscle groups 2. Impaired sitting/standing balance 3. Impaired activity tolerance 4. Limitation of joint range of motion in B shoulders/hips/knees 5. Generalized weakness 6. Poor nutritional status Impairments are contributing to the following functional limitations: 1. Decline in bed mobility skills 2. Decline in transfer skills 3. Difficulty with ambulation without assistive device and physical assistance IMPROVED TODAY 4. Increased completion time for mobility ADL performance 5. Increased risk for falls 6. Difficulty with managing steps alone safely IMPROVED TODAY Patient is assessed as a 02337 moderate complexity based on the following: History: 68-year-old male with past medical history as indicated above Examination: Demonstrable impairment in strength, balance, and mobility level with underlying impairments and functional limitations as exhibited above as well as deficit score of 51% utilizing the [facility] Mobility Inpatient Short Form Presentation: Evolving Decision Makin moderate complexity Goals: N/A. PT evalaution only. Plan of Care/Treatment Plan: N/A. PT evaluation only. DISCHARGE RECOMMENDATIONS: [] Home with no services [] [X] Home with services. Patient will benefit from home health PT services in order to progress mobility level using least restrictive assistive ambulatory device, assess home safety, identify additional equipment needs, and establish a functional maintenance program that will increase ability of patient to remain at home. [] Home with outpatient PT [] [] SNF for continued rehabilitation [] [] Alf Care [] [] SNF versus LTC based on ability to participate and progress [] THERA EX: Guided patient with safe and correct performance of exercises below: Access Code: [email or web address] URL: [email or web address] Date: 06/23/2023 Prepared by: Corry Thompson Exercises - Seated Hip Abduction with Resistance - 1 x daily - 7 x weekly - 1 sets - 10 reps - 5 hold - Shoulder W - External Rotation with Resistance - 1 x daily - 7 x weekly - 1 sets - 10 reps - 5 hold - Sitting Knee Extension with Resistance - 1 x daily - 7 x weekly - 1 sets - 10 reps - 5 hold - Seated Knee Lifts with Resistance - 1 x daily - 7 x weekly - 1 sets - 10 reps - 5 hold - Seated Single Arm Shoulder Row with Resistance Anchored at Feet - 1 x daily - 7 x weekly - 1 sets - 10 reps - 5 hold TREATMENT CODE/TIME: 69783 x 20 minutes for 1 unit, 16931 x 23 minutes beginning at 9:50 AM. Thank you for the opportunity to participate in the care of this patient. Corry Thompson PT, DPT, CLT [facility] [place], [place]
--- NOTE | 2023-06-23 10:40 | DSE_ITS ---
Date of service: 06/23/23 Time of Service: 10:40 DS: Diagnosis Discharge Diagnosis (1) Weakness: Status: Acute Asessment and Plan: Secondary to hyperglycemia. Now improved. Concerned about recurrence given his noncompliance with medical appts and medications. (2) Diabetes mellitus type 2 in nonobese: Status: Acute Asessment and Plan: Increased his metformin from 500mg TID to 1000mg BID. Glipizide 5mg BID added. Diabetic diet; it appears he doesn't adhere well. (3) Cavitary lesion of lung: Status: Acute Asessment and Plan: An appt for a PET scan at [facility] was previously arranged by Dr Leon but he now states he is not going to have the study. (4) Failure to thrive in adult: Asessment and Plan: Multifactoral; poorly controlled DM and likely lung cancer. If he is able to afford it, encouraged protein shake supplements. (5) Hyperglycemia: Status: Acute Asessment and Plan: Improved but is elevating again. See DM above. (6) Severe anxiety: Asessment and Plan: Clonazepam 0.5mg daily prn for panic attacks. #10 prescribed. (7) Discharge planning issues: Asessment and Plan: A PCP appt and transportation to the appt arranged. He did not f/u with the previous new PCP appt made at time of discharge from recent hospitalization. (8) Peripheral neuropathy: Status: Acute Asessment and Plan: Discuss with PCP regarding treatment options. (9) Tobacco use disorder: Status: Acute Asessment and Plan: Encourgaed cessation. Discharge Plan Disposition Patient Disposition: Home Condition: Improving Discharge Details Reason For Visit: Hyperglycemia, generalized weakness, fall Admit Date/Time: 06/22/23 16:40 Admit Provider: Sameer Pineda Attending Provider: Sameer Pineda Primary Care Provider: None,None Hospital Course Hospital Course: This is a 68 yo male with a PMH of severe anxiety, DM2 that was recently admitted to [facility], observation status, on 06/14-06/16/2023 for GI bleed treated with PPI. He had no PCP at the time and did not f/u with the PCP appt arranged for him after discharge from that admission. He presented this admission to the ED after falling while walking to his neighbors house. He stated he felt weak and just didn't feel good. He denied CP/palpitations. No syncope. He did strike his head but c/o no pain. EMS transported him. They noted his fingerstick blood glucose was 480. In the ED he had a normal WBC count. His Hgb was 13.0. VBG lacte 4.5. Na 133. K 3.7. Glucose 498. Anion Gap 11.5. He was administered 10 units SC insulin and 2L NS. His blood glucose over several hours improved to 92. CT head w/o acute intracranial process. CXR with stable cavitary lesion in RUL. Care management consult. PT evaluated patient in the ED and felt he was not safe to go home given his ongoing weakness/ambulatory dysfunction. Admitted for observation. See Diagnosis An appt to establish with a PCP and transportation to the appt has been arranged for this Thursday. Home Meds and New Rx's Prescriptions: New clonazepam 0.5 mg Tablet 0.5 mg PO PRN PRNQty: 10 0RF Rx Instructions: Daily prn for panic attack glipizide 5 mg Tablet 5 mg PO BID@0730,1630 Qty: 60 0RF metformin 1,000 mg tablet 1,000 mg PO BID Qty: 60 0RF Discontinued hydroxyzine HCl 25 mg tablet 25 mg PO BID PRNQty: 10 0RF Patient Comments: supposed to take but unable to get scripts from [facility] metformin 500 mg tablet 500 mg PO TID Qty: 90 0RF Patient Comments: supposed to take but unable to get scripts from [facility] clonazepam 0.5 mg tablet 0.5 mg PO PRN PRN Hold Instructions: Prescription Finished Patient Comments: supposed to take but unable to get scripts from [facility] Rx Instructions: TAKE 1 TABLET NEEDED FOR PANIC ATTACKS sucralfate [Carafate] 1 gram tablet 1 g PO QAC Qty: 90 0RF Hold Instructions: Pt Stopped/Never Started Discharge Instructions Stand Alone Forms: Nursing Discharge Form Referrals: Danielle Ramirez NP [NURSE PRACTITIONER] - 06/26/23 3:50 pm ([facility] will pick you up at 3:15) Activity:: Activity as Tolerated Equipment/Supplies:: No Equipment Needed Diet:: diabetic diet. DS: Summary Time Spent with Patient providing and/or coordinating discharge services: Greater than 30 minutes Status at Discharge Functional status at discharge: independent ambulation Overall status at discharge: patient is progressing back to baseline Mental Status: mental status grossly normal Speech and Movement: speech clear Mood: congruent mood Affect: normal affect Exam Psych Mental Status: mental status grossly normal Speech and Movement: speech clear Mood: congruent mood Affect: normal affect DS: Data Vitals/I&O Vitals and I&O: Vital Signs Temperature 36.1 C L 06/23/23 07:35 Temperature Source Tympanic 06/23/23 07:35 Pulse 99 H 06/23/23 07:35 Pulse Rhythm Regular 06/23/23 07:55 Respiratory Rate 22 06/23/23 07:35 Respiratory Effort Normal 06/23/23 07:55 Respiratory Depth Normal 06/23/23 07:55 Respiratory Pattern Normal 06/23/23 07:55 Blood Pressure 133/82 06/23/23 07:35 Blood Pressure Position Sitting 06/22/23 09:11 Pulse Oximetry 100 06/23/23 07:35 Oxygen Delivery Method Room Air 06/23/23 07:35 Oxygen Flow Rate 0 06/23/23 07:35 Pain Level 0 06/23/23 07:35 Comment pain free at this time conversant, a&o at this 06/22/23 17:48 Intake & Output 06/22/23 06/22/23 06/23/23 11:59 23:59 11:59 Intake Total 999 / 1999 460 / 460 Output Total 350 / 350 595 / 595 Balance 1000 / 1650 650 / 1650 -135 / -135 Weight 50 kg 51.437 kg Intake: IV 999 10 10 Oral 450 / 450 Output: Urine 350 / 350 595 / 595 Other: Urine Color Yellow Urine Appearance Clear Urine Odor None Voiding Methods Urinal Data Completed and Pending Labs on day of discharge: Labs from last 24 hours 06/23/23 06/22/23 06/22/23 06:35 17:00 12:15 VBG Lactate 1.1 Sodium 136 Potassium 3.3 L Chloride 101 Carbon Dioxide 27.1 Anion Gap 7.9 BUN 10 Creatinine 0.5 L Est GFR (CKD-EPI 2020) 111.10 Glucose 245 H Calcium 8.8 Troponin I < 50 COVID-19 Source Nasal/Nares SARS-CoV-2 (PCR) Negative PFSH All Active Problems (Updated 06/23/23 @ 07:15 by Sameer Pineda MD) Tobacco use disorder (Acute) Peripheral neuropathy (Acute) Weakness (Acute) Hyperglycemia (Acute) Cavitary lesion of lung (Acute) Diabetes mellitus type 2 in nonobese (Acute) Medical History Palliative care encounter Enlarged prostate Financial difficulties Need for home health care Discharge planning issues Failure to thrive in adult Neuropathy GI bleed due to NSAIDs Severe anxiety Weight loss Pulmonary infiltrate in right lung on chest x-ray Surgical History Hx of liver transplant Social History Smoking/Tobacco Use Status: Current every day Tobacco Type: cigarettes Years smoked: 55 Tobacco: How many years used: 45 Quit status: not considering quitting Second Hand Exposure: Yes Smoking risk assessment performed?: Yes Alcohol Intake: current Alcohol Intake frequency: holidays/special occasions only Details: 2-4 times per month, 1-2 at a time Drug use: Occasionally Substance use type: marijuana Adopted: No Caregiver/Support person: No Household members: none Housing: apartment Number of Children: 2 number of grandchildren: 2 Communication Needs: Corrective Lenses Education Level: high school Do you need help understanding health information?: Rarely current occupation: Retired Pets and animals: Yes (Fish) Sexually active: Yes Do you think of yourself as: straight/heterosexual Current gender identity: male What is your relationship status?: How often do you talk on the phone with friends or family?: never How often do you get together with friends or relatives?: twice per week Do you belong to any clubs or organized social groups?: no Panel score (0-1 are the most socially isolated patients): 0 What type of physical activity do you participate in: none Bernarda/Taoist: None Special bernarda needs: No Seatbelt use: always Helmet use: Yes Drive intox or ride w/intox local combination truck driver: No Do you feel safe at home: Yes Do you feel safe in your relationship?: Yes Additional Social history: [facility] Time Spent with Patient Time Spent with Patient: 45-69 minutes Time was spent: preparing to see the patient(eg.review tests), obtaining and/or reviewing separately otained hiistory, referring, communicating with other health resident care coordinator, indepentently interpreting results, counseling the patient and care coordination
[2023-06-23] MEDS: glipiZIDE 5 MG TAB PO (11:09)
== END 2023-06-23 12:17 | disposition home or self-care (01) ==
LOC: ER 17:30 → MS 06-23 07:17
PROVIDERS: Admitting Provider Family Medicine; Emergency Provider Emergency Medicine; Visit Provider Family Medicine
DX: R53.1 Weakness (principal); J98.4 Other disorders of lung; E11.65 Type 2 diabetes mellitus with hyperglycemia; R62.7 Adult failure to thrive; F41.9 Anxiety disorder, unspecified; E11.42 Type 2 diabetes mellitus with diabetic polyneuropathy; F17.210 Nicotine dependence, cigarettes, uncomplicated; Z91.199 Patient's noncompliance with other medical treatment and regimen due to unspecified reason; W19.XXXA Unspecified fall, initial encounter; R63.4 Abnormal weight loss; Z68.1 Body mass index [BMI] 19.9 or less, adult; Z94.4 Liver transplant status
CPT/HCPCS: 00123; 36415; 36416; 80048; 80053; 82805; 82962; 87635; 87637; 93005; 96360; 96361; 96372; 97162; 97530; 99285; 70450; 71045; 80320; 83605; 83735; 84484; 85025; 93010; 99239; G0378

== ENCOUNTER 2023-06-26 06:15 | Inpatient (IN) | payer MEDICARE, SELFPAY ==
[2023-06-26] VITALS (11 sets, daily range): BP systolic 123–147; BP diastolic 77–90; PULSE 90–105; RESP 15–22; TEMP 36–36.9; O2SAT 99–100
--- NOTE | 2023-06-26 06:15 | DI.RAD_ITS ---
Exam(s) XR CHEST 2V PA LATERAL EXAM: XR CHEST 2V PA LATERAL CLINICAL HISTORY: weight loss, lung ca? TECHNIQUE: 2D digital imaging was performed. COMPARISON: CR CHEST 2 VIEWS PA,LAT from 12/15/2007 CR XR CHEST 2V PA LATERAL from 02/19/2023 CR XR CHEST 1V IN DI DEPT from 06/22/[address] CHEST/ABD/PEL W from 06/26/2023 FINDINGS: Leads overlie the chest. HEART: Normal size. Aorta: Not dilated. PULMONARY VASCULATURE: Normal. LUNGS: Roughly stable area cavitation in the anterior right upper lobe. Adjacent areas of scarring. The new infiltrates seen in the right middle and lower lobes are on CT are not visible on plain film . PLEURAL SPACE: No pleural effusion or pneumothorax. BONE:Unremarkable for age. IMPRESSION: Stable appearance of a cavitary lesion in the anterior right upper lobe. DATA REPOSITORY: RADIATION DOSE DELIVERED:
--- NOTE | 2023-06-26 06:15 | RT.EKG_ITS ---
APPROVED REPORT Exam: Resting ECG Reason for Exam: bowels Patient Location: E HR:97 bpm ECG Measurements Heart Rate 97 AXIS AK [id number] P [id number] QRSd 84 QRS 68 QT 362 T 107 QTc 461 Conclusion Incomplete analysis due to missing data in precordial lead(s) Atrial fibrillation...V-rate 95- 97, irreg A-activity Ventricular premature complex...V complex w/ short R-R interval sinus rhythm, normal axis, baseline artifact due to tremor, PVC, non ischemic; lead V6 not attached
--- NOTE | 2023-06-26 06:15 | DI.CT_ITS ---
Exam(s) CT CHEST/ABD/PEL W EXAM: CT CHEST/ABD/PEL W CLINICAL HISTORY: hx lung ca? diarrhea, weight loss. TECHNIQUE: Imaging Protocol: Axial computed tomography images with coronal and sagittal reformatted images were created and reviewed CONTRAST MATERIAL: Intravenous: Omnipaque 350 Contrast volume:100 ml Oral: / no COMPARISON: CT CT CHEST W from 06/15/2023 CR XR CHEST 1V IN DI DEPT from 06/22/2023 FINDINGS: CHEST: Tracheobronchial tree: Patent where visualized. Pulmonary parenchyma: Patchy infiltrate right upper lobe, unchanged. No gross interval change in smooth earance of cavitary lesion anterior right upper lobe, extending to the pleura.. New area nodular inf iltrate in the inferior right middle lobe. New area patchy infiltrate in the left lower lobe. Pleura: No effusion or pneumothorax. Lymph nodes: Within normal limits. Aorta: Thoracic portion non-dilated. Heart: Normal size. Coronary artery calcifications. Bones: Unremarkable for age. No lytic or blastic lesions.No compression fractures. ABDOMEN and PELVIS: Exam is quite limited due to lack of intra-abdominal fat. Bowel is not well evaluated without oral c ontrast and lack of surrounding fat. Liver: Normal density. No measurable mass. Gallbladder and biliary tract: No evidence of stones or wall thickening. No biliary dilatation. Pancreas: Normal density, no abnormal calcifications or inflammatory process. Spleen: Normal. Kidneys: Normal size, contour and axis. No radiodense stones or obstructive uropathy. No suspicious m asses seen. Adrenal glands: No masses seen. Aorta: Abdominal portion non-dilated. Moderate atherosclerotic changes. Lymph nodes: Within normal limits. Soft tissues: Unremarkable. Bladder: Mild wall thickening. No focal mass or stone. Bowel: No obstruction or bowel wall thickening. Peritoneal cavity: No ascites. No focal collection or mesenteric inflammatory response. Bones: Unremarkable for age. Reproductive organs: Prostate enlarged, impressing on base of bladder. IMPRESSION: Stable appearance of cavitary lesion right upper lobe. Scattered areas of patchy infiltrates which a re new in the right middle lobe and left lower lobe. No acute abnormality in the abdomen or pelvis.. RADIATION DOSE DELIVERED: Total DLP DATA REPOSITORY: All CT scans at this facility are submitted to the National Radiology Data Registry (NRDR) Dose Index Registry (DIR) with the [employer] (ACR). RADIATION OPTIMIZATION: All CT scans at this facility use at least one of these dose optimization te chniques: automated exposure control; mA and/or kV adjustment per patient size (includes targeted exa ms where dose is matched to clinical indication); or iterative reconstruction.
--- NOTE | 2023-06-26 06:30 | W.ED.GENAD ---
Discharge Plan Disposition Patient Disposition: Admit to [facility] Condition: Stable Discharge Details Chief Complaint: GenMedical Clinical Impression: Cachexia, Cavitary lesion of lung, Dehydration, Malnutrition, Frailty Primary Care Provider: None,None ED Provider: Sameer Wasserman Home Meds and New Rx's Prescriptions: No Action clonazepam 0.5 mg Tablet 0.5 mg PO PRN PRNQty: 10 0RF Rx Instructions: Daily prn for panic attack glipizide 5 mg Tablet 5 mg PO BID@0730,1630 Qty: 60 0RF Hold Instructions: does not have script metformin 1,000 mg tablet 1,000 mg PO BID Qty: 60 0RF Medical Decision Making 68-year-old male history of possible lung CA, presents with progressive weakness fatigue unintentional weight loss over the past 10 weeks as well as diarrhea. Appears frail cachectic, dehydrated with dry oral mucosa dry skin, superficial skin abrasions subacute/chronic, alert oriented moving all extremities no signs of trauma. Progressive cachexia concerning for malignancy must consider malnutrition high clinical suspicion for electrolyte derangement and dehydration must also consider infectious process. Although patient denies recent antibiotic use he has been in the healthcare system multiple times over the last year consider C. difficile diarrhea we will send stool antigen. Will obtain screening labs imaging, will begin fluid repletion, patient will benefit from admission and rehabilitation stay. 9: 22 patient [place] hemodynamically stable; stable cavitary lesion right lung; scattered patchy infiltrates right middle lobe and left lower lobe on CT, consider early developing multifocal pneumonia on top of baseline pulmonary lesion that is concerning for malignancy. Given frailty and increased weight loss dehydration poor p.o. intake and self-care patient will benefit greatly from inpatient stay and likely rehabilitation placement. Patient amenable to plan. HPI General Date/Time Provider Initiated Documentation: 06/26/23 06:20. HPI Narrative: 68-year-old male possible lung CA, presents with progressive fatigue weight loss unintentional and diarrhea over the past several weeks. Related Data Home Medications Medication Instructions Recorded Confirmed clonazepam 0.5 mg tablet 0.5 mg PO PRN PRN #10 tabs 06/23/23 06/26/23 glipizide 5 mg tablet 5 mg PO BID@0730,1630 #60 tabs 06/23/23 06/26/23 metformin 1,000 mg tablet 1,000 mg PO BID #60 tabs 06/23/23 06/26/23 Previous Rx's Medication Instructions Recorded clonazepam 0.5 mg tablet 0.5 mg PO PRN PRN #10 tabs 06/23/23 glipizide 5 mg tablet 5 mg PO BID@0730,1630 #60 tabs 06/23/23 metformin 1,000 mg tablet 1,000 mg PO BID #60 tabs 06/23/23 Allergies Allergy/AdvReac Type Severity Reaction Status Date / Time No Known Allergies Allergy Unverified 06/26/23 06:44 General Stated Complaint: GenMedical JERAMY: 3 Review of Systems Narrative: Review of Systems Constitutional: Weight loss Eyes: negative ENT: negative Cardiovascular: negative Respiratory: negative Gastrointestinal: Diarrhea : negative Musculoskeletal: negative Skin: negative Neurologic: negative Psych: negative PFSH All Active Problems (Updated 06/26/23 @ 09:25 by Sameer Wasserman MD) Frailty (Acute) Malnutrition (Acute) Dehydration (Acute) Cavitary lesion of lung (Acute) Cachexia (Acute) Tobacco use disorder (Acute) Peripheral neuropathy (Acute) Weakness (Acute) Hyperglycemia (Acute) Cavitary lesion of lung (Acute) Diabetes mellitus type 2 in nonobese (Acute) Medical History Palliative care encounter Enlarged prostate Financial difficulties Need for home health care Discharge planning issues Failure to thrive in adult Neuropathy GI bleed due to NSAIDs Severe anxiety Weight loss Pulmonary infiltrate in right lung on chest x-ray Surgical History Hx of liver transplant Social History Smoking/Tobacco Use Status: Current every day Tobacco Type: cigarettes Years smoked: 55 Tobacco: How many years used: 45 Quit status: not considering quitting Second Hand Exposure: Yes Smoking risk assessment performed?: Yes Alcohol Intake: current Alcohol Intake frequency: holidays/special occasions only Details: 2-4 times per month, 1-2 at a time Drug use: Occasionally Substance use type: marijuana Adopted: No Caregiver/Support person: No Household members: none Housing: apartment Number of Children: 2 number of grandchildren: 2 Communication Needs: Corrective Lenses Education Level: high school Do you need help understanding health information?: Rarely current occupation: Retired Pets and animals: Yes (Fish) Sexually active: Yes Do you think of yourself as: straight/heterosexual Current gender identity: male What is your relationship status?: How often do you talk on the phone with friends or family?: never How often do you get together with friends or relatives?: twice per week Do you belong to any clubs or organized social groups?: no Panel score (0-1 are the most socially isolated patients): 0 What type of physical activity do you participate in: none Bernarda/Religious: None Special bernarda needs: No Seatbelt use: always Helmet use: Yes Drive intox or ride w/intox class a regional truck driver: No Do you feel safe at home: Yes Do you feel safe in your relationship?: Yes Additional Social history: [employer] Exam Narrative Exam Narrative: Physical Examination General: alert, awake, cooperative, frail, cachectic HEENT: normocephalic, atraumatic; PERRL, EOM intact, conjunctiva normal; no nasal discharge; dry oral mucosa Neck: supple, trachea midline; full ROM Chest: normal to inspection Respiratory: normal respiratory effort, speaking in full sentences, clear to auscultation, no wheezing, rales or rhonchi Cardiac: Tachycardia, regular rhythm, S1S2 intact, no murmurs rubs or gallops GI: abdomen soft, non-tender, non-distended; no palpable mass or hepatosplenomegaly Skin: Dry skin superficial skin abrasions Neuro: AAOx3, normal speech, moving all extremities Extremities: Frail Psych: Appropriate mood and affect Course Vital Signs Vital signs: Vital Signs Temperature 36.5 C 06/26/23 06:09 Pulse 104 H 06/26/23 06:09 Respiratory Rate 18 06/26/23 06:09 Blood Pressure 137/90 06/26/23 06:09 Temperature 36.5 C 06/26/23 06:13 Pulse 105 H 06/26/23 06:13 Respiratory Rate 18 06/26/23 06:13 Respiratory Effort Normal 06/26/23 06:13 Blood Pressure 138/90 06/26/23 06:13 Pulse Oximetry 100 06/26/23 06:13 Oxygen Delivery Method Room Air 06/26/23 06:13 Pain Level 0 06/26/23 06:13
[2023-06-26 06:31] LABS: Abs Immature Grans 0.08 10^3/uL (0.0-0.06); Absolute Basophil Count 0.03 10^3/uL (0.0-0.2); Absolute Eosinophil Count 0.06 10^3/uL (0.0-0.7); Absolute Lymphocyte Count 0.83 10^3/uL (1.2-3.4); Absolute Monocyte Count 0.66 10^3/uL (0.1-0.8); Absolute Neutrophil Count 5.11 10^3/uL (1.2-6.7); Basophils % 0.4; Eosinophils % 0.9; HCT 35.9 % (40.0-50.0); HGB 12.4 g/dL (13.5-17.5); Immature Grans % 1.2; Lymphocytes % 12.3; MCH 29.9 pg (27.0-33.0); MCHC 34.5 % (32.0-36.0); MCV 87 fL (80-95); MPV 8.7 fL (8.0-11.0); Monocytes % 9.7; Neutrophils % 75.5; Platelet Count 213 10^3/uL (130-400); RBC 4.15 10^6/uL (4.36-5.78); RDW 13.8 % (11.8-14.1); RDW-SD 43.6 fL; WBC 6.77 10^3/uL (4.4-10.8)
[2023-06-26] MEDS: Normal Saline 1,000 ML 1000 ML IV (06:39)
[2023-06-26 06:45] LABS: INR 1.1 (0.9-1.1); PTT Activated 24.7 sec (23.6-32.8)
[2023-06-26 07:01] LABS: ALT 23 U/L (16-63); AST 23 U/L (15-37); Alkaline Phosphatase 91 U/L (46-116); Anion Gap 8.2 mmol/L (3-11); BUN 11 mg/dL (7-18); Bilirubin, Total 0.5 mg/dL (0.2-1.0); CO2 27.8 mmol/L (21.0-32.0); CREATININE 0.7 mg/dL (0.70-1.30); Chloride 95 mmol/L (98-107); Creatine Kinase 56 U/L (39-308); ETHANOL BLOOD < 3.0 mg/dL (<10); Estimated GFR 100.37 (mL/min/1.73m2); Glucose 419 mg/dL (74-106); Lipase 22 U/L (16-77); Magnesium 1.9 mg/dL (1.8-2.4); Potassium 3.3 mmol/L (3.5-5.1); Sodium 131 mmol/L (136-145); TSH (W/Ref FT4) 4.68 uIU/mL (0.36-3.74); Total Protein 6.6 g/dL (6.4-8.2); Troponin I < 50 ng/L (<or=60)
[2023-06-26 07:18] LABS: COVID-19 PCR Negative (Negative); Influenza A PCR Negative (Negative); Influenza B PCR Negative (Negative); RSV PCR Negative (Negative)
[2023-06-26] MEDS: Potassium Chloride 10 MEQ TABCR PO (07:21)
[2023-06-26] MEDS: POTASSIUM CHLORIDE 10 MEQ/100 ML BAG 100 MEQ IVPB (07:21)
[2023-06-26] MEDS: Insulin REGULAR-Human 100 UNITS/ML UNIT 6 UNITS SC (07:21)
[2023-06-26 07:31] LABS: Source Nasopharynx
[2023-06-26] MEDS: Normal Saline - Diluent 50 ML VIAL IJ (08:20)
[2023-06-26] MEDS: Omnipaque 350 MG/ML 500 ML BTL-Imaging package 100 ML IJ (08:23)
--- NOTE | 2023-06-26 09:20 | HPE_ITS ---
Date of service: 06/26/23 Time of Service: 09:20 Assessment and Plan Assessment and plan (1) Dehydration: Status: Acute Assessment and plan: d/t poor po intake, gi losses and poor diabetes management IV hydration I&O (2) Severe protein-calorie malnutrition: Status: Acute Assessment and plan: nutrition consultation protein supplementation consider calorie count (3) Electrolyte abnormality: Status: Acute Assessment and plan: replete and follow (4) Ambulatory dysfunction: Status: Acute Assessment and plan: PT/OT consultation fall precautions (5) GI bleed due to NSAIDs: Status: Acute Assessment and plan: stable, will place on PPI monitor (6) Tobacco use disorder: Status: Acute Assessment and plan: nicotine replacement while hospitalized smoking cessation discussed (7) Diabetes mellitus type 2 in nonobese: Status: Acute Assessment and plan: poor control with poor compliance diabetic diet with sliding scale coverage ac/hs diabetic education (8) Cavitary lesion of lung: Status: Acute Assessment and plan: will place palliative care consult (9) Diarrhea: Status: Acute Assessment and plan: cdiff is pending will monitor and consider antidiarrheals if needed. (10) Discharge planning issues: Status: Acute Assessment and plan: no chemical dvt prophylaxis in setting of recent gi bleeding teds/scds anticipate discharge to inpatient rehabilitation facility for skilled PT/OT discussed with DR Rojo History of Present Illness History of Present Illness Chief Complaint: weakness Narrative: This is a 68-year-old male history of possible lung CA, presents with progressive weakness fatigue unintentional weight loss over the past 10 weeks as well as diarrhea. Progressive cachexia concerning for malignancy and must consider malnutrition high clinical suspicion for electrolyte derangement and dehydration must also consider infectious process. Although patient denies recent antibiotic use he has been in the healthcare system multiple times over the last year consider C. difficile diarrhea which stool antigen was negative. He will be given IV hydration, electrolyte replacement, blood sugar management and admitted to hospitalist. Review of Systems All systems reviewed & are unremarkable except as noted in HPI and below PFSH All Active Problems Discharge planning issues (Acute) Diarrhea (Acute) GI bleed due to NSAIDs (Acute) Ambulatory dysfunction (Acute) Electrolyte abnormality (Acute) Severe protein-calorie malnutrition (Acute) Frailty (Acute) Malnutrition (Acute) Dehydration (Acute) Cavitary lesion of lung (Acute) Cachexia (Acute) Tobacco use disorder (Acute) Peripheral neuropathy (Acute) Weakness (Acute) Hyperglycemia (Acute) Cavitary lesion of lung (Acute) Diabetes mellitus type 2 in nonobese (Acute) Medical History Palliative care encounter Enlarged prostate Financial difficulties Need for home health care Failure to thrive in adult Neuropathy Severe anxiety Weight loss Pulmonary infiltrate in right lung on chest x-ray Surgical History Hx of liver transplant Social History Smoking/Tobacco Use Status: Current every day Tobacco Type: cigarettes Years smoked: 55 Tobacco: How many years used: 45 Quit status: not considering quitting Second Hand Exposure: Yes Smoking risk assessment performed?: Yes Alcohol Intake: current Alcohol Intake frequency: holidays/special occasions only Details: 2-4 times per month, 1-2 at a time Drug use: Occasionally Substance use type: marijuana Adopted: No Caregiver/Support person: No Household members: none Housing: apartment Number of Children: 2 number of grandchildren: 2 Communication Needs: Corrective Lenses Education Level: high school Do you need help understanding health information?: Rarely current occupation: Retired Pets and animals: Yes (Fish) Sexually active: Yes Do you think of yourself as: straight/heterosexual Current gender identity: male What is your relationship status?: How often do you talk on the phone with friends or family?: never How often do you get together with friends or relatives?: twice per week Do you belong to any clubs or organized social groups?: no Panel score (0-1 are the most socially isolated patients): 0 What type of physical activity do you participate in: none Bernarda/Pentecostal: None Special bernarda needs: No Seatbelt use: always Helmet use: Yes Drive intox or ride w/intox customer service driver: No Do you feel safe at home: Yes Do you feel safe in your relationship?: Yes Additional Social history: [employer] Meds Allergies and Home Medications Allergies Allergy/AdvReac Type Severity Reaction Status Date / Time No Known Allergies Allergy Unverified 06/26/23 06:44 Home Medications Medication Instructions Recorded Confirmed Type clonazepam 0.5 mg tablet 0.5 mg PO PRN PRN #10 tabs 06/23/23 06/26/23 Rx glipizide 5 mg tablet 5 mg PO BID@0730,1630 #60 tabs 06/23/23 06/26/23 Rx metformin 1,000 mg tablet 1,000 mg PO BID #60 tabs 06/23/23 06/26/23 Rx Exam Const General: no acute distress, disheveled, frail appearing and ill appearing chronically Nutritional Appearance: cachectic Orientation: alert, awake and oriented x3 HENMT Head: normal to inspection, normocephalic and atraumatic Face and sinus: normal facial exam Neck Neck: normal visual inspection, full ROM and no JVD Resp Effort & Inspection: normal respiratory effort Auscultation: no rales and no rhonchi Cardio Rate: regular rate and not tachycardic Rhythm: regular rhythm GI Inspection: normal to inspection Palpation: soft and nontender Skin General skin exam: no rashes or lesions noted Neuro General: patient alert, patient awake and patient oriented x3 Extrem General: normal to inspection, full ROM and no pedal edema Results Labs 06/28/23 11:25 06/28/23 11:25 Labs: Laboratory Results - last 24 hr 06/26/23 06/26/23 06/26/23 06:13 06:13 06:13 WBC 6.77 RBC 4.15 L Hgb 12.4 L Hct 35.9 L MCV 87 MCH 29.9 MCHC 34.5 RDW 13.8 Plt Count 213 MPV 8.7 Immature Gran % 1.2 Neutrophils % 75.5 Lymphocytes % 12.3 Monocytes % 9.7 Eosinophils % 0.9 Basophils % 0.4 Nucleated RBC % 0.0 Absolute Neutrophils 5.11 Absolute Lymphocytes 0.83 L Absolute Monocytes 0.66 Absolute Eosinophils 0.06 Absolute Basophils 0.03 PT 11.0 INR 1.1 APTT 24.7 Sodium 131 L Potassium 3.3 L Chloride 95 L Carbon Dioxide 27.8 Anion Gap 8.2 BUN 11 Creatinine 0.7 Est GFR (CKD-EPI 2020) 100.37 Glucose 419 H Calcium 9.0 Magnesium 1.9 Total Bilirubin 0.5 AST 23 ALT 23 Alkaline Phosphatase 91 Creatine Kinase Cancelled 56 Troponin I Cancelled < 50 Total Protein 6.6 Albumin 3.0 L Lipase 22 TSH 4.68 H Free T4 1.30 Ethyl Alcohol Cancelled COVID-19 Source SARS-CoV-2 (PCR) Influenza Type A (PCR) Influenza Type B (PCR) RSV (PCR) 06/26/23 06/26/23 06:13 06:33 WBC RBC Hgb Hct MCV MCH MCHC RDW Plt Count MPV Immature Gran % Neutrophils % Lymphocytes % Monocytes % Eosinophils % Basophils % Nucleated RBC % Absolute Neutrophils Absolute Lymphocytes Absolute Monocytes Absolute Eosinophils Absolute Basophils PT INR APTT Sodium Potassium Chloride Carbon Dioxide Anion Gap BUN Creatinine Est GFR (CKD-EPI 2020) Glucose Calcium Magnesium Total Bilirubin AST ALT Alkaline Phosphatase Creatine Kinase Troponin I Total Protein Albumin Lipase TSH Free T4 Ethyl Alcohol < 3.0 COVID-19 Source Nasopharynx SARS-CoV-2 (PCR) Negative Influenza Type A (PCR) Negative Influenza Type B (PCR) Negative RSV (PCR) Negative Last Vital Signs Temp 36.5 C 06/26/23 06:13 Pulse 97 H 06/26/23 06:46 Resp 15 06/26/23 06:46 BP 147/83 H 06/26/23 06:46 Pulse Ox 100 06/26/23 06:46 Time Spent Time spent with Patient: 40-54 minutes Time was spent: preparing to see the patient(eg.review tests), obtaining and/or reviewing separately otained hiistory, ordering medications,tests, procedures, indepentently interpreting results and counseling the patient
[2023-06-26 09:22] LABS: Bilirubin Negative (Negative); Blood Negative (Negative); Clarity Clear (Clear); Glucose >=1000 mg/dL (Negative); Ketones Negative (Negative); Leukocyte Esterase Negative (Negative); Nitrite Negative (Negative); Specific Gravity 1.015 (1.005-1.025); Urobilinogen 0.2 mg/dL (Up to 0.2)
--- NOTE | 2023-06-26 11:25 | PDOC.CMIN ---
Date of service: 06/26/23 Time of Service: 11:25 Care Management Initial Assmt Initial Assessment REASON FOR HOSPITALIZATION:: weakness, failure to thrive, electrolyte imbalance PREVIOUS FUNCTIONAL STATUS/SOCIAL/FAMILY SUPPORTS:: José Miguel lives alone in an apartment in [facility]. He has 2 adult children who live out of state. José Miguel has been failing at home for quite a while. Ambulation has been increasingly difficult to the point that he rarely leave his home. He has met with [facility] regarding obtaining a phone and other services. CURRENT FUNCTIONAL STATUS:: José Miguel was sitting up in bed when CM met with him. He was very irritable and used a lot of profanity during the visit. José Miguel informed CM that he is going to have the tumor removed from his lung and have the lung sewn up and then he will be fine. When asked when he had been told this and when did he expect it to happen, he became angry and frustrated, stating doesn't anyone ever communicates with anyone else here? CM did share with him that [facility] does not perform that type of surgery and he indicated that he guessed it would have to be done somewhere else. he also stated that he will recuperate afterwards at a friend's house. ADVANCE DIRECTIVES:: none on file Has patient been provided with info about the portal/API?: Yes Did the patient sign up for the portal?: No CODE STATUS:: Full Code INSURANCE COVERAGE / FINANCIAL ISSUES:: Medicare CURRENT HOME/COMMUNITY SERVICES/EQUIPMENT:: declined to answer PRIMARY CARE PHYSICIAN:: José Miguel has no PCP. He has been scheduled several times with T-doc appointments but has not kept any of them. POTENTIAL DISCHARGE NEEDS:: placement PATIENT/FAMILY EDUCATION NEEDS:: Review of discharge instructions, limitations, activity, follow up plan, discuss Ask Me Three. 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 Only has Medicare. No Medicaid, no PCP, no family or friends, no transportation and does not keep appointments when made or follow through. TRANSPORTATION:: to be determined by disposition PLAN:: José Miguel's discharge plan is unclear at this time. He is having difficulty ambulating and eating and appears to have chronic diarrhea. It is possible he will seek SNF placement for rehab and/or care home care if recommended by PT. CM will follow and continue to assess for discharge planning needs. PFSH All Active Problems Discharge planning issues (Acute) Diarrhea (Acute) GI bleed due to NSAIDs (Acute) Ambulatory dysfunction (Acute) Electrolyte abnormality (Acute) Severe protein-calorie malnutrition (Acute) Frailty (Acute) Malnutrition (Acute) Dehydration (Acute) Cavitary lesion of lung (Acute) Cachexia (Acute) Tobacco use disorder (Acute) Peripheral neuropathy (Acute) Weakness (Acute) Hyperglycemia (Acute) Cavitary lesion of lung (Acute) Diabetes mellitus type 2 in nonobese (Acute) Medical History Palliative care encounter Enlarged prostate Financial difficulties Need for home health care Failure to thrive in adult Neuropathy Severe anxiety Weight loss Pulmonary infiltrate in right lung on chest x-ray Surgical History Hx of liver transplant Social History Smoking/Tobacco Use Status: Current every day Tobacco Type: cigarettes Years smoked: 55 Tobacco: How many years used: 45 Quit status: not considering quitting Second Hand Exposure: Yes Smoking risk assessment performed?: Yes Alcohol Intake: current Alcohol Intake frequency: holidays/special occasions only Details: 2-4 times per month, 1-2 at a time Drug use: Occasionally Substance use type: marijuana Adopted: No Caregiver/Support person: No Household members: none Housing: apartment Number of Children: 2 number of grandchildren: 2 Communication Needs: Corrective Lenses Education Level: high school Do you need help understanding health information?: Rarely current occupation: Retired Pets and animals: Yes (Fish) Sexually active: Yes Do you think of yourself as: straight/heterosexual Current gender identity: male What is your relationship status?: How often do you talk on the phone with friends or family?: never How often do you get together with friends or relatives?: twice per week Do you belong to any clubs or organized social groups?: no Panel score (0-1 are the most socially isolated patients): 0 What type of physical activity do you participate in: none Bernarda/Scientologist: None Special bernarda needs: No Seatbelt use: always Helmet use: Yes Drive intox or ride w/intox hook up driver: No Do you feel safe at home: Yes Do you feel safe in your relationship?: Yes Additional Social history: [facility]
[2023-06-26] MEDS: Insulin Aspart 300 UNITS/3 ML PEN SC ×3 (12:37→21:03)
[2023-06-26] MEDS: Normal Saline 1,000 ML 100 ML IV ×2 (12:37→22:13)
[2023-06-26] MEDS: Potassium Chloride 20 MEQ TABCR PO ×2 (12:38→17:31)
[2023-06-26 12:45] LABS: C Diff PCR Negative (Negative)
--- NOTE | 2023-06-26 13:22 | IN_ITS ---
PT Notes Visit Reasons: Dehydration,Electrolyte Imbalance,Diarrhea Physical Therapy Inpatient Initial Evaluation Date: 06/26/2023 Referring Doctor: Sameer Pineda MD PT Orders: PT CONSULT: Eval/Treat Precautions: Fall. Standard. Activity as tolerated. Patient Profile/Admitting Diagnosis: Patient is a 68-year-old male patient re-admitted for management of dehydration, severe protein-calorie malnutrition, electrolyte abnormality, ambulatory dysfunction, DM Type II, cavitary lesion of lung, GI bleed due to NSAIDS, and diarhhea. PMHX: All Active Problems (Updated 06/26/23 @ 12:44 by Sophie Busby NP) Discharge planning issues (Acute) Diarrhea (Acute) GI bleed due to NSAIDs (Acute) Ambulatory dysfunction (Acute) Electrolyte abnormality (Acute) Severe protein-calorie malnutrition (Acute) Frailty (Acute) Malnutrition (Acute) Dehydration (Acute) Cavitary lesion of lung (Acute) Cachexia (Acute) Tobacco use disorder (Acute) Peripheral neuropathy (Acute) Weakness (Acute) Hyperglycemia (Acute) Diabetes mellitus type 2 in non-obese (Acute) Medical History Palliative care encounter Enlarged prostate Financial difficulties Need for home health care Discharge planning issues Failure to thrive in adult Neuropathy GI bleed due to NSAIDs Severe anxiety Weight loss Pulmonary infiltrate in right lung on chest x-ray Surgical History Hx of liver transplant Social History/Home Situation: Lives alone in an apartment with 13 steps to enter with a rail on one side. A lady from a charitable organization comes in once a month to bring essential grocery items for patient as he has been unable to do grocery shopping. Unable to drive. Ambulatory for a distance of 6-8 steps before needing to sit down due to worsening weakness. Unsure of whether patient has a case aide in the community to advocate for patient. Equipment Owned/DME: Bilateral Lofstrand crutches Subjective: Verbalizes continued diarrhea and inability to hold food long enough in his tummy which has contributed to continued weakness. Feels more weak today but is willing to try get out of bed to establish transfer status for nursing staff. Objective: General Observation: Fragile-looking, cachexic, asthenic, very low BMI. Mental Status: Alert and oriented as to person, place, time, and purpose. Pain: None reported Vital Signs: Closely monitored via tele ROM: Right Upper Extremity: Shoulder Flexion lacks the last 25% of AROM. Shoulder abduction lacks the last 25% of AROM. Elbow flexion WFL. Wrist flexion WFL. Functional opening and closing of hand WFL. Left Upper Extremity: Shoulder Flexion lacks the last 25% of AROM. Shoulder abduction lacks the last 25% of AROM. Elbow flexion WFL. Wrist flexion WFL. Functional opening and closing of hand WFL. Right Lower Extremity: Hip flexion lacks the last 25% of AROM. Hip abduction lacks the last 25% of AROM. Knee flexion 20 degrees to 90 degrees. Knee extension -20 degrees. Ankle dorsiflexion to neutral only. Ankle plantarflexion WFL. Left Lower Extremity: Hip flexion lacks the last 25% of AROM. Hip abduction lacks the last 25% of AROM. Knee flexion 20 degrees to 90 degrees. Knee ex tension -20 degrees. Ankle dorsiflexion to neutral only. Ankle plantarflexion WFL. Strength: Right Upper Extremity: Shoulder flexors 3-/5. Shoulder abductors 3-/5. Elbow flexors 3-/5. Elbow extensors 3-/5. [place] Fiber Sorter weak but functional. Left Upper Extremity: Shoulder flexors 3-/5. Shoulder abductors 3-/5. Elbow flexors 3-/5. Elbow extensors 3-/5. [place] Fiber Sorter weak but functional. Right Lower Extremity: Hip flexors 3-/5. Hip abductors 3-/5. Knee flexors 3-/5. Knee extensors 3-/5. Ankle dorsiflexors 3-/5. Ankle plantarflexors 3-/5. Left Lower Extremity: Hip flexors 3-/5. Hip abductors 3-/5. Knee flexors 3-/5. Knee extensors 3-/5. Ankle dorsiflexors 3-/5. Ankle plantarflexors 3-/5. Bed Mobility/Transfers: Supine to sit contact guard assist Supine to sit contact guard assist Sit to stand contact guard assist with FWW Stand to sit contact guard assist with FWW Gait: Facilitated safe and correct in-room level surface ambulation using FWW for about 20 feet before needing to sit down and rest requiring contact guard assist. Stairs: Not assessed at this time Balance: Static Sitting: Fair Dynamic Sitting: Fair Static Standing: Fair Dynamic Standing: Poor Special Tests: Mobility Limitations Standardized Measure [facility] AM-PAC 6 clicks Basic Mobility Inpatient Short Form: Raw Score: 18 CMS Score: 47% deficit 4-Stage Balance Test: Feet together less than seconds Semi-tandem less than seconds Full-tandem Unable One-legged stance Unable Informed Consent/Education: Patient was instructed in purpose of PT consult. ASSESSMENT: Downgraded patient to use of front-wheeled walker to provide the stability he needs for ambulation as he continues to present with generalized weakness from nutritional deficiency. Will require gradual strengthening regimen and balance retraining to regain PLOF of modified independent using bilateral [place]rand crutches. Patient presents with clinical signs and symptoms consistent with current/ad mitting diagnoses that have resulted to mobility limitations, gait instability, generalized weakness, and overall ADL decline as demonstrated by the following impairment level findings: 1. Decreased strength to B UE/LE major muscle groups 2. Impaired sitting/standing balance 3. Impaired activity tolerance 4. Limitation of joint range of motion in B shoulders/hips/knees 5. Generalized weakness 6. Poor nutritional status Impairments are contributing to the following functional limitations: 1. Decline in bed mobility skills 2. Decline in transfer skills 3. Difficulty with ambulation without assistive device and physical assistance 4. Increased completion time for mobility ADL performance 5. Increased risk for falls 6. Difficulty with managing steps alone safely Patient is assessed as a [id number] moderate complexity based on the following: History: 68-year-old male with past medical history as indicated above Examination: Demonstrable impairment in strength, balance, and mobility level with underlying impairments and functional limitations as exhibited above as well as deficit score of 47% utilizing the [facility] Mobility Inpatient Short Form Presentation: Evolving Decision Makin moderate complexity Goals: Goals X1 week 1. Supine-Sit independent 2. Sit-Supine independent 3. Sit-Stand independent 4. Stand-Sit independent with bilateral Lofstrand crutches 5. Bed-Chair independent with bilateral [place] crutches 6. Chair-Bed independent with bilateral [place] crutches 7. Independent gait on level surface with use of with bilateral [place] crutches for at least 300 feet without report of pain nor dyspnea 8. Independent stair negotiation while holding onto bilateral rails or with bilateral Lofstrand crutches for at least 10 steps without report of pain nor dyspnea 9. Independent with home exercise program 10. Good static and dynamic standing balance/tolerance Plan of Care/Treatment Plan: Patient will highly benefit from skilled physical therapy services including functional mobility training, bed mobility/transfer training, gait and balance training, therapeutic exercises, therapeutic activity, caregiver/staff/family education and training 1-2x/day, 7 days/week x 1 week. Plan of care has been reviewed with the FREE LANCE MODEL providing the service under Physical Therapy direction. Initiate Physical Therapy intervention for strengthening, bed mobility, transfers, gait, stairs, balance training, use of assistive device. DISCHARGE RECOMMENDATIONS: [] Home with no services [] [] Home with services [] [] Home with outpatient PT [] [] SNF for continued rehabilitation [] [] [facility] [] [] SNF versus LTC based on ability to participate and progress [] [X] PT vs. SNF based on progress towards goals TREATMENT CODE/TIME: 30809 x 29 minutes for 1 unit beginning at 13:22 AM. Thank you for the opportunity to participate in the care of this patient. Corry Thompson PT, DPT, CLT [facility] [place], [place]
[2023-06-26 14:49] LABS: *AMPHETAMINES SCREEN URINE Negative (Negative); *BARBITURATES SCREEN URINE Negative (Negative); *BENZODIAZEPINES SCREEN URINE Negative (Negative); Cannabinoids THC Positive (Negative); Cocaine Screen,Urine Negative (Negative); METHADONE URINE SCREEN Negative (Negative); OPIATES URINE SCREEN Negative (Negative)
[2023-06-26 14:50] LABS: Tricyclic Antidepressants Negative (Negative)
--- NOTE | 2023-06-26 15:45 | PCNE_ITS ---
Date of service: 06/26/23 Time of Service: 15:45 History of Present Illness Narrative: José Miguel was seen in his room at [facility] for Palliative consult. He is currently admitted for Cachexia, Cavitary lesion of lung, Dehydration, Malnutrition, Frailty, electrolyte abnormalities. He has been seen in the ED 10 times over the last 6 months. This is his 3rd admission to [facility] in the last 2 weeks. He has not been able to keep follow up visits after discharge home. A PET scan was ordered by Pulmonology when the cavitary lung lesion was noted, He appears to be failing at home. He lives in a small apartment, he uses furniture to get around, he has had several falls. he admits that he has been getting weaker over time. He reports that he has had severe diarrhea He reports that he has lost weight, approximately 50-60 pounds over the last year. States he has new Dx of lung cancer. Per his understanding, he has a lung cancer that is in early stages that can be surgical removed. He reports that he had Bx done and all of the testing. He thought he was going to have surgery to remove the tumor within the next few days here at [facility]. Discussed that this does not appear to be the plan. He is open to going to tertiary care center for care/procedures if needed. He would be open to chemo or radiation but believes that he will not need it once the tumor is removed. Discussed CODE status- His goal is to live to be 89 years old. At this point, he states, I want to live. I want them to do any god damn thing to keep me going until I'm 89. Discussed that he would need to get stronger and gain some weight before having any type of surgery. Based on this, he is agreeable to going to short term rehab but his ultimate goal would be to get back to home. He is hoping to move in with his friends, Hussein and Katheryn Cole. Assessment and Plan Assessment and plan (1) Dehydration: Status: Acute Assessment and plan: d/t poor po intake, gi losses and poor diabetes management He is receiving IVF. (2) Severe protein-calorie malnutrition: Status: Acute Assessment and plan: He is cachectic, in the setting of lung mass, highly suspicious for cancer. (3) Electrolyte abnormality: Status: Acute (4) Ambulatory dysfunction: Status: Acute Assessment and plan: Has had several falls at home. Uses forearm crutches bilaterally. (5) GI bleed due to NSAIDs: Status: Acute Assessment and plan: stable. (6) Tobacco use disorder: Status: Acute Assessment and plan: Rolls his own cigarettes. Interested in patch for here and after discharge home. (7) Diabetes mellitus type 2 in nonobese: Status: Acute Assessment and plan: poor control with poor compliance (8) Cavitary lesion of lung: Status: Acute Assessment and plan: With high suspicion for lung cancer. Currently wants to pursue work-up/treatment/surgery. Is agreeable to Palliative following. (9) Diarrhea: Status: Acute Assessment and plan: cdiff is pending (10) Palliative care encounter: Assessment and plan: José Miguel was seen for Palliative consultation. He was seen to discuss goals of care in the setting of suspected lung cancer. He does not appear to have a good understanding of his illness. He wants/plans to live until he is 89 years old. He wishes to be a FULL code, in order to live to be 89. He thought he was here to get the lung mass taken care of, including surgical resection, and is under the impression that taking the mass out will cure the whole issue. He has been seen in the ED 10 times over the last 6 months. This is his 3rd admission to [facility] in the last 2 weeks. He has not been able to keep follow up visits after discharge home He is open to SNF for short term rehab. He is hoping to move in with his friends when he leaves rehab. He is open to Palliative care following him. Will ask for him to be seen early next week. He will benefit from ongoing visits with Palliative care to help him understand his disease process and for advanced care planning. [facility] All Active Problems Discharge planning issues (Acute) Diarrhea (Acute) GI bleed due to NSAIDs (Acute) Ambulatory dysfunction (Acute) Electrolyte abnormality (Acute) Severe protein-calorie malnutrition (Acute) Frailty (Acute) Malnutrition (Acute) Dehydration (Acute) Cavitary lesion of lung (Acute) Cachexia (Acute) Tobacco use disorder (Acute) Peripheral neuropathy (Acute) Weakness (Acute) Hyperglycemia (Acute) Cavitary lesion of lung (Acute) Diabetes mellitus type 2 in nonobese (Acute) Medical History Palliative care encounter Enlarged prostate Financial difficulties Need for home health care Failure to thrive in adult Neuropathy Severe anxiety Weight loss Pulmonary infiltrate in right lung on chest x-ray Surgical History Hx of liver transplant Social History Smoking/Tobacco Use Status: Current every day Tobacco Type: cigarettes Years smoked: 55 Tobacco: How many years used: 45 Quit status: not considering quitting Second Hand Exposure: Yes Smoking risk assessment performed?: Yes Alcohol Intake: current Alcohol Intake frequency: holidays/special occasions only Details: 2-4 times per month, 1-2 at a time Drug use: Occasionally Substance use type: marijuana Adopted: No Caregiver/Support person: No Household members: none Housing: apartment Number of Children: 2 number of grandchildren: 2 Communication Needs: Corrective Lenses Education Level: high school Do you need help understanding health information?: Rarely current occupation: Retired Pets and animals: Yes (Fish) Sexually active: Yes Do you think of yourself as: straight/heterosexual Current gender identity: male What is your relationship status?: How often do you talk on the phone with friends or family?: never How often do you get together with friends or relatives?: twice per week Do you belong to any clubs or organized social groups?: no Panel score (0-1 are the most socially isolated patients): 0 What type of physical activity do you participate in: none Bernarda/Catholic: None Special bernarda needs: No Seatbelt use: always Helmet use: Yes Drive intox or ride w/intox team otr truck driver: No Do you feel safe at home: Yes Do you feel safe in your relationship?: Yes Additional Social history: [employer] Exam Narrative Exam Narrative: General: very pleasant, chronically ill appearing man, laying in hospital bed, he appears older than stated age. He is thin/cachectic. HEENT: normocephalic, atraumatic, EOMI, wearing glasses, edentulous. Respiratory: respirations appear even and unlabored. GI: scaphoid abd. [place] shape scar to his abd from previous liver transplant. Extremities: very thin, +muscle atrophy, moves all 4 extremities freely. Scattered abrasions to BUE. Results Last Vital Signs Temp 36.9 C 06/26/23 15:29 Pulse 97 H 06/26/23 15:29 Resp 18 06/26/23 15:29 BP 125/77 06/26/23 15:29 Pulse Ox 100 06/26/23 15:29 Labs 06/26/23 06:13 06/26/23 06:13 Labs: Laboratory Results - last 24 hr 06/26/23 06/26/23 06/26/23 06:13 06:13 06:13 WBC 6.77 RBC 4.15 L Hgb 12.4 L Hct 35.9 L MCV 87 MCH 29.9 MCHC 34.5 RDW 13.8 Plt Count 213 MPV 8.7 Immature Gran % 1.2 Neutrophils % 75.5 Lymphocytes % 12.3 Monocytes % 9.7 Eosinophils % 0.9 Basophils % 0.4 Nucleated RBC % 0.0 Absolute Neutrophils 5.11 Absolute Lymphocytes 0.83 L Absolute Monocytes 0.66 Absolute Eosinophils 0.06 Absolute Basophils 0.03 PT 11.0 INR 1.1 APTT 24.7 Sodium 131 L Potassium 3.3 L Chloride 95 L Carbon Dioxide 27.8 Anion Gap 8.2 BUN 11 Creatinine 0.7 Est GFR (CKD-EPI 2020) 100.37 Glucose 419 H Calcium 9.0 Magnesium 1.9 Total Bilirubin 0.5 AST 23 ALT 23 Alkaline Phosphatase 91 Creatine Kinase Cancelled 56 Troponin I Cancelled < 50 Total Protein 6.6 Albumin 3.0 L Lipase 22 TSH 4.68 H Free T4 1.30 Urine Color Urine Clarity Urine pH Ur Specific [place] Urine Protein Urine Ketones Urine Blood Urine Nitrite Urine Bilirubin Urine Urobilinogen Ur Leukocyte Esterase Urine Glucose Stl C.difficile Tox PCR Urine Opiates Screen Urine Methadone Screen Ur Barbiturates Screen Ur Tricyclics Screen Ur Amphetamines Screen U Benzodiazepines Scrn Urine Cocaine Screen Ur THC Screen Ethyl Alcohol Cancelled COVID-19 Source SARS-CoV-2 (PCR) Influenza Type A (PCR) Influenza Type B (PCR) RSV (PCR) 06/26/23 06/26/23 06/26/23 06:13 06:33 09:00 WBC RBC Hgb Hct MCV MCH MCHC RDW Plt Count MPV Immature Gran % Neutrophils % Lymphocytes % Monocytes % Eosinophils % Basophils % Nucleated RBC % Absolute Neutrophils Absolute Lymphocytes Absolute Monocytes Absolute Eosinophils Absolute Basophils PT INR APTT Sodium Potassium Chloride Carbon Dioxide Anion Gap BUN Creatinine Est GFR (CKD-EPI 2020) Glucose Calcium Magnesium Total Bilirubin AST ALT Alkaline Phosphatase Creatine Kinase Troponin I Total Protein Albumin Lipase TSH Free T4 Urine Color Yellow Urine Clarity Clear Urine pH 7.0 Ur Specific [place] 1.015 Urine Protein Negative Urine Ketones Negative Urine Blood Negative Urine Nitrite Negative Urine Bilirubin Negative Urine Urobilinogen 0.2 Ur Leukocyte Esterase Negative Urine Glucose >=1000 H Stl C.difficile Tox PCR Urine Opiates Screen Urine Methadone Screen Ur Barbiturates Screen Ur Tricyclics Screen Ur Amphetamines Screen U Benzodiazepines Scrn Urine Cocaine Screen Ur THC Screen Ethyl Alcohol < 3.0 COVID-19 Source Nasopharynx SARS-CoV-2 (PCR) Negative Influenza Type A (PCR) Negative Influenza Type B (PCR) Negative RSV (PCR) Negative 06/26/23 06/26/23 11:35 12:25 WBC RBC Hgb Hct MCV MCH MCHC RDW Plt Count MPV Immature Gran % Neutrophils % Lymphocytes % Monocytes % Eosinophils % Basophils % Nucleated RBC % Absolute Neutrophils Absolute Lymphocytes Absolute Monocytes Absolute Eosinophils Absolute Basophils PT INR APTT Sodium Potassium Chloride Carbon Dioxide Anion Gap BUN Creatinine Est GFR (CKD-EPI 2020) Glucose Calcium Magnesium Total Bilirubin AST ALT Alkaline Phosphatase Creatine Kinase Troponin I Total Protein Albumin Lipase TSH Free T4 Urine Color Urine Clarity Urine pH Ur Specific [place] Urine Protein Urine Ketones Urine Blood Urine Nitrite Urine Bilirubin Urine Urobilinogen Ur Leukocyte Esterase Urine Glucose Stl C.difficile Tox PCR Negative Urine Opiates Screen Negative Urine Methadone Screen Negative Ur Barbiturates Screen Negative Ur Tricyclics Screen Negative Ur Amphetamines Screen Negative U Benzodiazepines Scrn Negative Urine Cocaine Screen Negative Ur THC Screen Positive A Ethyl Alcohol COVID-19 Source SARS-CoV-2 (PCR) Influenza Type A (PCR) Influenza Type B (PCR) RSV (PCR)
[2023-06-26] MEDS: Nicotine 21 MG/24 HR PATCH TD (17:30)
[2023-06-26] MEDS: Protein Nutritional Supplement 16 GM 1 OUNCE PACKET PO ×2 (17:44→21:02)
[2023-06-26] MEDS: Normal Saline Flush 10 ML SYR (21:04)
[2023-06-26] MEDS: Simethicone 80 MG CHEW 40 MG PO (22:13)
[2023-06-27 06:47] LABS: Abs Immature Grans 0.07 10^3/uL (0.0-0.06); Absolute Basophil Count 0.01 10^3/uL (0.0-0.2); Absolute Eosinophil Count 0.06 10^3/uL (0.0-0.7); Absolute Monocyte Count 0.42 10^3/uL (0.1-0.8); Absolute Neutrophil Count 3.42 10^3/uL (1.2-6.7); Basophils % 0.2; Eosinophils % 1.3; HCT 30.7 % (40.0-50.0); HGB 10.6 g/dL (13.5-17.5); Immature Grans % 1.5; MCH 29.8 pg (27.0-33.0); MCHC 34.5 % (32.0-36.0); MCV 86 fL (80-95); Platelet Count 155 10^3/uL (130-400); RBC 3.56 10^6/uL (4.36-5.78); RDW 13.7 % (11.8-14.1); RDW-SD 42.8 fL; WBC 4.68 10^3/uL (4.4-10.8)
[2023-06-27 07:11] LABS: ALT 19 U/L (16-63); AST 23 U/L (15-37); Albumin 2.5 g/dL (3.4-5.0); Alkaline Phosphatase 82 U/L (46-116); Anion Gap 8.4 mmol/L (3-11); BUN 14 mg/dL (7-18); Bilirubin, Total 0.3 mg/dL (0.2-1.0); CO2 23.6 mmol/L (21.0-32.0); CREATININE 0.7 mg/dL (0.70-1.30); Calcium 8.4 mg/dL (8.5-10.1); Chloride 100 mmol/L (98-107); Estimated GFR 100.37 (mL/min/1.73m2); Glucose 414 mg/dL (74-106); Potassium 4.3 mmol/L (3.5-5.1); Sodium 132 mmol/L (136-145); Total Protein 5.7 g/dL (6.4-8.2)
[2023-06-27] MEDS: Simethicone 80 MG CHEW 40 MG PO ×3 (08:11→17:30)
[2023-06-27] MEDS: Insulin Aspart 300 UNITS/3 ML PEN SC ×5 (08:11→21:05)
[2023-06-27] MEDS: Potassium Chloride 20 MEQ TABCR PO ×3 (08:12→17:29)
[2023-06-27] MEDS: Protein Nutritional Supplement 16 GM 1 OUNCE PACKET PO ×3 (08:12→21:05)
[2023-06-27] MEDS: Nicotine 21 MG/24 HR PATCH TD (08:12)
[2023-06-27] MEDS: Insulin Glargine 300 UNITS/3 ML PEN 15 UNITS SC (09:44)
--- NOTE | 2023-06-27 09:53 | PT.INTREAT ---
Date of service: 06/27/23 Time of Service: 09:17 PT Notes Visit Reasons: Dehydration,Electrolyte Imbalance,Diarrhea Inpatient Physical Therapy Treatment Note [facility] Date: 06/27/23 PRECAUTIONS: Fall, standard, activity as tolerated. SUBJECTIVE: Patient reports feeling pretty good, concerned about getting a phone which he believes is already here at the hospital and that care management has been 'working on it' for 10 weeks now. This clinician attempted to convince patient that the phone would be provided by a community organization and not directly by the hospital, however patient remaind unconvinced. Also attempted to convince patient to sit up in chair so that nursing staff could change his sheets, but he declined stating that he had wiped the whole bed and himself down with sanitizing wipes so that changing the sheets would be unnecessary. OBJECTIVE: Supine in bed. IV in place LUE. Bilateral inflatable leg sleeves in place for blood clot prevention. Agreeable to therapy. ? PAIN: none reported VITALS: monitored by nursing staff? BED MOBILITY/TRANSFERS? Rolling L/R: modified independent with bilateral side rails Supine-sit: modified independent with bilateral side rails ? Sit-supine: independent? Sit-stand: SBA? Stand-sit: SBA ? Bed-Chair: SBA, help managing IV pole and line ? Chair-bed: SBA, help managing IV pole and line ? Therapeutic Exercises ([id number]): Direct one-on-one instruction in therapeutic exercises to develop strength, endurance, range of motion and flexibility. ? Exercises ? Ambulation ? Assistive Device: bilateral forearm crutches? Weight bearing: full Assist: SBA, help managing IV pole and line? Distance:? 25 feet, seated rest x3 ? Deviation: wide MISTY, slow nilson. Good step length. 4 point gait pattern. ? Provided skilled instruction in proper exercise performance Provided skilled manual cues to facilitate proper muscle recruitment and/or form. ASSESSMENT:? Patient tolerates therapy well. Reports some fatigue at end of session. Also reports concern over learning to self-inject insulin, because of PTSD and these tremors. Hand, trunk, and head observed to have mild tremors which this clinician had not noticed until they were pointed out, but they persisted and were uniform in intensity. PLAN: Continue global strengthening per plan of care until patient is medically cleared for discharge and has safe discharge plan. Patient believes he will be here at the hospital for 2-3 weeks of rehab and then will return home. TREATMENT CODE/TIME: 28 minutes beginning at 9:17
[2023-06-27 10:58] VITALS: BP 112/69; PULSE 96; RESP 18; TEMP 37; O2SAT 99
[2023-06-27 11:01] VITALS: O2SAT 99
--- NOTE | 2023-06-27 13:39 | W.PM.PROGNOT ---
Date of Service Date of service: 06/27/23 Time of Service: 13:40 Assessment and Plan Assessment and plan (1) Dehydration: Status: Acute Assessment and plan: d/t poor po intake, gi losses and poor diabetes management IV hydration I&O (2) Severe protein-calorie malnutrition: Status: Acute Assessment and plan: nutrition consultation protein supplementation consider calorie count (3) Electrolyte abnormality: Status: Acute Assessment and plan: replete and follow (4) Ambulatory dysfunction: Status: Acute Assessment and plan: PT/OT consultation fall precautions (5) GI bleed due to NSAIDs: Status: Acute Assessment and plan: stable, will place on PPI monitor (6) Tobacco use disorder: Status: Acute Assessment and plan: nicotine replacement while hospitalized smoking cessation discussed (7) Diabetes mellitus type 2 in nonobese: Status: Acute Assessment and plan: poor control with poor compliance diabetic diet with sliding scale coverage ac/hs diabetic education (8) Cavitary lesion of lung: Status: Acute Assessment and plan: will place palliative care consult (9) Diarrhea: Status: Acute Assessment and plan: cdiff is pending will monitor and consider antidiarrheals if needed. (10) Discharge planning issues: Status: Acute Assessment and plan: no chemical dvt prophylaxis in setting of recent gi bleeding teds/scds anticipate discharge to inpatient rehabilitation facility for skilled PT/OT discussed with DR Molina Subjective Subjective Patient reports: no new complaints, tolerating liquids well, tolerating a regular diet and afebrile Exam Const General: no acute distress, disheveled, frail appearing and ill appearing chronically Nutritional Appearance: cachectic Orientation: alert, awake and oriented x3 HENMT Head: normal to inspection, normocephalic and atraumatic Face and sinus: normal facial exam Neck Neck: normal visual inspection, full ROM and no JVD Resp Effort & Inspection: normal respiratory effort Auscultation: no rales and no rhonchi Cardio Rate: regular rate and not tachycardic Rhythm: regular rhythm GI Inspection: normal to inspection Palpation: soft and nontender Skin General skin exam: no rashes or lesions noted Neuro General: patient alert, patient awake and patient oriented x3 Extrem General: normal to inspection, full ROM and no pedal edema Objective Last Vital Signs Temp 37.0 C 06/27/23 10:58 Pulse 96 H 06/27/23 10:58 Resp 18 06/27/23 10:58 BP 112/69 06/27/23 10:58 Pulse Ox 99 06/27/23 11:01 Laboratory Results - last 24 hr 06/26/23 06/27/23 12:25 06:26 WBC 4.68 RBC 3.56 L Hgb 10.6 L Hct 30.7 L MCV 86 MCH 29.8 MCHC 34.5 RDW 13.7 Plt Count 155 MPV 9.0 Immature Gran % 1.5 Neutrophils % 73.0 Lymphocytes % 15.0 Monocytes % 9.0 Eosinophils % 1.3 Basophils % 0.2 Nucleated RBC % 0.0 Absolute Neutrophils 3.42 Absolute Lymphocytes 0.70 L Absolute Monocytes 0.42 Absolute Eosinophils 0.06 Absolute Basophils 0.01 Sodium 132 L Potassium 4.3 D Chloride 100 Carbon Dioxide 23.6 Anion Gap 8.4 BUN 14 Creatinine 0.7 Est GFR (CKD-EPI 2020) 100.37 Glucose 414 H Calcium 8.4 L Magnesium 2.0 Total Bilirubin 0.3 AST 23 ALT 19 Alkaline Phosphatase 82 Total Protein 5.7 L Albumin 2.5 L Urine Opiates Screen Negative Urine Methadone Screen Negative Ur Barbiturates Screen Negative Ur Tricyclics Screen Negative Ur Amphetamines Screen Negative U Benzodiazepines Scrn Negative Urine Cocaine Screen Negative Ur THC Screen Positive A Time Spent with Patient Time Spent with Patient: 35-49 minutes Time was spent: preparing to see the patient(eg.review tests), ordering medications,tests, procedures, indepentently interpreting results and counseling the patient
[2023-06-27 15:33] VITALS: BP 111/69; PULSE 96; RESP 19; TEMP 36.9; O2SAT 99
[2023-06-27] MEDS: Normal Saline 1,000 ML 100 ML IV (17:45)
--- NOTE | 2023-06-27 20:22 | NUR.NOTE ---
Nursing Note: This ad writer became aware of pts H&H downtrending and that his BM today was Heme +. Informed CC of his labs and the need for possible iron supplementation as he is not at a critical level yet. Dr. Rojo made aware and will discuss with day shift provider tomorrow.
[2023-06-27 21:02] VITALS: BP 111/71; PULSE 95; RESP 18; TEMP 36.7; O2SAT 99
[2023-06-27] MEDS: Simethicone 80 MG CHEW PO (21:05)
[2023-06-28 00:40] VITALS: O2SAT 99
[2023-06-28] MEDS: Normal Saline 1,000 ML 100 ML IV (03:35)
[2023-06-28] MEDS: Nicotine 21 MG/24 HR PATCH TD (07:52)
[2023-06-28] MEDS: Insulin Aspart 300 UNITS/3 ML PEN SC ×6 (07:53→21:06)
[2023-06-28] MEDS: Potassium Chloride 20 MEQ TABCR PO (07:53)
[2023-06-28] MEDS: Protein Nutritional Supplement 16 GM 1 OUNCE PACKET PO ×3 (07:53→21:06)
[2023-06-28 08:27] VITALS: BP 142/81; PULSE 95; RESP 18; TEMP 36.6; O2SAT 100
[2023-06-28] MEDS: Simethicone 80 MG CHEW PO ×4 (10:17→21:06)
--- NOTE | 2023-06-28 10:28 | PT.INTREAT ---
Date of service: 06/28/23 Time of Service: 09:38 PT Notes Visit Reasons: Dehydration,Electrolyte Imbalance,Diarrhea Inpatient Physical Therapy Treatment Note [facility] Date: 06/28/23 PRECAUTIONS: Fall, standard, activity as tolerated. SUBJECTIVE: Patient reports wanting to strengthen his pecs to get more air into his lungs. 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 Patient also reports that he has a gaping hole in his lung, so whenever he takes a deep breath the air escapes into [his] chest cavity. Conferred with INDUSTRIAL PHOTOGRAPHER Mac, this appears to not be accurate. Patient does have lung cancer. OBJECTIVE: Patient supine in bed. INDUSTRIAL PHOTOGRAPHER Mac present. Patient just finished getting washed up, sheets changed. ? PAIN: yes, in low back when sitting and standing. VITALS: monitored by nursing staff. ? BED MOBILITY/TRANSFERS? Rolling L/R: independent Supine-sit: independent ? Sit-supine: independent ? Sit-stand: SBA to FWW or forearm crutches ? Stand-sit: SBA? Bed-Chair: SBA ? Chair-bed: SBA ? Therapeutic Exercises ([id number]): Direct one-on-one instruction in therapeutic exercises to develop strength, endurance, range of motion and flexibility. ? Exercises TA activation - instructed patient on how to locate TA, several verbal cues for patient to voluntarily activate the muscle TA activation with posterior pelvic tilt TA activation and posterior pelvic tilt with bridge - manual cues required to facilitate lifting hips from bed. TA activation with supine march - verbal cues to maintain TA activation and breathing, skilled observation required to note when patient has lost TA activation and provide verbal cues to reset. Ambulation refused today due to low back discomfort? Provided skilled instruction in proper exercise performance Provided skilled manual cues to facilitate proper muscle recruitment and/or form. Manual ([id number]): The synergistic application of movement-oriented strategies integrating exercise and manually applied mobilization and manipulation procedures. ? Techniques: Sidelying thoracic sidebending stretch over folded pillow with manual overpressure to increase movement of ribs - 30 s each side x2 instruction on self-mobilization of first rib using folded sheet, 5 breaths each side manual soft tissue techniques applied to intercostals, upper traps, scalenes to increase soft tissue extensibility and mobility. ASSESSMENT:? Patient tolerates therapy well, reports feeling as though he can move more air, breath more deeply, more easily. PLAN: Continue global strengthening per plan of care until patient is medically cleared for discharge and has a safe discharge plan. TREATMENT CODE/TIME: []
--- NOTE | 2023-06-28 11:14 | W.PM.PROGNOT ---
Date of Service Date of service: 06/28/23 Time of Service: 11:14 Assessment and Plan Assessment and plan (1) Dehydration: Status: Acute Assessment and plan: d/t poor po intake, gi losses and poor diabetes management IV hydration stopped and stable. I&O (2) Severe protein-calorie malnutrition: Status: Acute Assessment and plan: nutrition consultation protein supplementation consider calorie count (3) Electrolyte abnormality: Status: Resolved Assessment and plan: replete and follow (4) Ambulatory dysfunction: Status: Acute Assessment and plan: PT/OT consultation fall precautions (5) GI bleed due to NSAIDs: Status: Acute Assessment and plan: stable H&H, will place on PPI monitor (6) Tobacco use disorder: Status: Acute Assessment and plan: nicotine replacement while hospitalized smoking cessation discussed (7) Diabetes mellitus type 2 in nonobese: Status: Acute Assessment and plan: poor control with poor compliance, added lantus, adjust as needed. diabetic diet with sliding scale coverage ac/hs diabetic education (8) Cavitary lesion of lung: Status: Acute Assessment and plan: will place palliative care consult (9) Diarrhea: Status: Acute Assessment and plan: cdiff is negative will monitor and consider antidiarrheals if needed. (10) Discharge planning issues: Status: Acute Assessment and plan: no chemical dvt prophylaxis in setting of recent gi bleeding teds/scds anticipate discharge to inpatient rehabilitation facility for skilled PT/OT discussed with DR Molina Subjective Subjective Patient reports: no new complaints, tolerating liquids well, tolerating a regular diet, no bowel movement and afebrile; denies shortness of breath Exam Const General: no acute distress, disheveled, frail appearing and ill appearing chronically Nutritional Appearance: cachectic Orientation: alert, awake and oriented x3 HENMT Head: normal to inspection, normocephalic and atraumatic Face and sinus: normal facial exam Neck Neck: normal visual inspection, full ROM and no JVD Resp Effort & Inspection: normal respiratory effort Auscultation: no rales and no rhonchi Cardio Rate: regular rate and not tachycardic Rhythm: regular rhythm GI Inspection: normal to inspection Palpation: soft and nontender Skin General skin exam: no rashes or lesions noted Neuro General: patient alert, patient awake and patient oriented x3 Extrem General: normal to inspection, full ROM and no pedal edema Objective Last Vital Signs Temp 36.6 C 06/28/23 08:27 Pulse 95 H 06/28/23 08:27 Resp 18 06/28/23 08:27 BP 142/81 H 06/28/23 08:27 Pulse Ox 100 06/28/23 08:27 Time Spent with Patient Time Spent with Patient: 35-49 minutes Time was spent: preparing to see the patient(eg.review tests), ordering medications,tests, procedures, indepentently interpreting results and counseling the patient
[2023-06-28 11:29] LABS: Abs Immature Grans 0.07 10^3/uL (0.0-0.06); Absolute Basophil Count 0.02 10^3/uL (0.0-0.2); Absolute Eosinophil Count 0.06 10^3/uL (0.0-0.7); Absolute Lymphocyte Count 0.59 10^3/uL (1.2-3.4); Absolute Monocyte Count 0.47 10^3/uL (0.1-0.8); Absolute Neutrophil Count 3.25 10^3/uL (1.2-6.7); Basophils % 0.4; Eosinophils % 1.3; HCT 32.5 % (40.0-50.0); HGB 10.9 g/dL (13.5-17.5); Immature Grans % 1.6; Lymphocytes % 13.2; MCH 29.3 pg (27.0-33.0); MCHC 33.5 % (32.0-36.0); MCV 87 fL (80-95); MPV 8.5 fL (8.0-11.0); Monocytes % 10.5; Platelet Count 146 10^3/uL (130-400); RBC 3.72 10^6/uL (4.36-5.78); RDW-SD 44.9 fL; WBC 4.46 10^3/uL (4.4-10.8)
[2023-06-28 11:45] LABS: BUN 19 mg/dL (7-18); CREATININE 0.6 mg/dL (0.70-1.30); Calcium 8.6 mg/dL (8.5-10.1); Chloride 98 mmol/L (98-107); Estimated GFR 105.15 (mL/min/1.73m2); Glucose 395 mg/dL (74-106); Potassium 3.8 mmol/L (3.5-5.1); Sodium 131 mmol/L (136-145)
[2023-06-28] MEDS: Insulin Glargine 300 UNITS/3 ML PEN 15 UNITS SC (11:56)
[2023-06-28 15:25] VITALS: BP 114/70; PULSE 70; RESP 18; TEMP 36; O2SAT 100
[2023-06-29 00:31] VITALS: BP 129/79; PULSE 92; RESP 18; TEMP 36.9; O2SAT 100
[2023-06-29 00:49] VITALS: O2SAT 100
[2023-06-29] MEDS: Pantoprazole 40 MG TABCR PO (07:54)
[2023-06-29] MEDS: Nicotine 21 MG/24 HR PATCH TD (07:55)
[2023-06-29] MEDS: Protein Nutritional Supplement 16 GM 1 OUNCE PACKET PO ×2 (07:55→13:07)
[2023-06-29] MEDS: Normal Saline Flush 10 ML SYR IVP (07:55)
[2023-06-29] MEDS: Insulin Aspart 300 UNITS/3 ML PEN SC ×3 (07:57→12:04)
[2023-06-29] MEDS: Insulin Glargine 300 UNITS/3 ML PEN 15 UNITS SC (07:57)
[2023-06-29 08:02] VITALS: BP 144/79; PULSE 94; RESP 18; TEMP 36.6; O2SAT 100
[2023-06-29] MEDS: Simethicone 80 MG CHEW PO ×2 (08:36→13:07)
--- NOTE | 2023-06-29 09:12 | OTIE_ITS ---
Occupational Therapy Notes Inpatient Occupational Therapy Evaluation Date: 06/29/23 Referring Doctor:Dr. Molina OT Orders: Non Urgent Precautions: Fall, Standard, Full PATIENT PROFILE/ADMITTING DIAGNOSIS: Pt is a 68 year old male admitted through the ED for a dx of Diarrhea, GI bleed d/t NSAIDS, Ambulatory dysfunction, electrolyte abnormality, severe protein-calorie malnutrition, frality, malnutrition,dehydration, cavitary lesion of lunh, cachexia Past Medical History: All Active Problems Discharge planning issues (Acute) Diarrhea (Acute) GI bleed due to NSAIDs (Acute) Ambulatory dysfunction (Acute) Electrolyte abnormality (Acute) Severe protein-calorie malnutrition (Acute) Frailty (Acute) Malnutrition (Acute) Dehydration (Acute) Cavitary lesion of lung (Acute) Cachexia (Acute) Tobacco use disorder (Acute) Peripheral neuropathy (Acute) Weakness (Acute) Hyperglycemia (Acute) Cavitary lesion of lung (Acute) Diabetes mellitus type 2 in nonobese (Acute) Medical History Palliative care encounter Enlarged prostate Financial difficulties Need for home health care Failure to thrive in adult Neuropathy Severe anxiety Weight loss Pulmonary infiltrate in right lung on chest x-ray Surgical History Hx of liver transplant Social History/Home Situation: Pt states that he lives in an apartment alone. He has a son and daughter who he states he is proud of. He notes that he is not able to drive but is getting an ebike and notes that this will give him more (I) in his daily routines. Pt states that he does have some difficulty getting in and out of his tub shower but he has a shower bench, grab bars and adaptive equipment. Equipment owned/DME: shower bench, grab bars SUBJECTIVE: Pt states that he is doing well and believes he is going to SNF for a little bit. OBJECTIVE: General Observation: Pleasant, IV in (L) UE, ANALI stockings on Mental Status: A&Ox3 Pain: no c/o pain with OT ROM: RUE AROM WFL L UE AROM WFL STRENGTH: RUE 4/5 LUE 4/5 BALANCE: Static sitting Good Dynamic Sitting Good SPECIAL TESTS: Daily Activity Limitations Standardized Measure [facility] AM -PAC ?6 clicks? Daily Activity Inpatient Short Form: Raw score: 20 Standardized score: 42.03 CMS score: 38.32% INFORMED CONSENT/EDUCATION: Pt instructed in purpose of OT Consult and plan of care. ASSESSMENT: Patient is a 68-year-old male referred to occupational therapy services with diagnosis of Diarrhea, GI bleed d/t NSAIDS, Ambulatory dysfunction, electrolyte abnormality, severe protein-calorie malnutrition, frality, malnutrition,dehydration, cavitary lesion of lung, cachexia. Patient presents with clinical signs and symptoms consistent with dx, as demonstrated by the following impairment level findings/functional limitations: [] AMPAC score 20 Patient is assessed as a Moderate 70187 complexity based on the following: History: see above Examination: see functional limitations as noted above Presentation: evolving Decision Making: AMPAC score 20 GOALS Seen for OT consult only. PLAN OF CARE/TREATMENT PLAN: Discharged to SNF DISCHARGE RECOMMENDATIONS SNF for continued rehabilitation for increased strength, functional activity tolerance and functional (I) in his ADL/IADL routines. TREATMENT TIME/MINUTES/CODES 24282, 10137, 28 minutes [facility] [place], [place]
--- NOTE | 2023-06-29 09:47 | PDOC.CMPRO ---
Date of service: 06/29/23 Time of Service: 09:47 Care Management Progress Note Progress Note Text Progress Note Text: S/O: A: Laurent is a 68 year opld man admitted to [facility] on 06/26/23 with dehydration and an electrolyte imbalance P: José Miguel's discharge plan is unclear at this time. He is having difficulty ambulating and eating and appears to have chronic diarrhea. It is possible he will seek SNF placement for rehab and/or watermelon inspector care if recommended by PT. CM will follow and continue to assess for discharge planning needs.
--- NOTE | 2023-06-29 11:51 | PGE_ITS ---
Date of Service Date of service: 06/29/23 Time of Service: 11:51 Assessment and Plan Assessment and plan (1) Severe protein-calorie malnutrition: Status: Acute Assessment and plan: nutrition consultation protein supplementation consider calorie count (2) Ambulatory dysfunction: Status: Acute Assessment and plan: PT/OT consultation fall precautions (3) GI bleed due to NSAIDs: Status: Acute Assessment and plan: stable H&H, on PPI monitor (4) Tobacco use disorder: Status: Acute Assessment and plan: nicotine replacement while hospitalized smoking cessation discussed (5) Diabetes mellitus type 2 in nonobese: Status: Acute Assessment and plan: poor control with poor compliance, added lantus, adjust as needed. diabetic diet with sliding scale coverage ac/hs diabetic education (6) Cavitary lesion of lung: Status: Acute Assessment and plan: palliative care consult (7) Discharge planning issues: Status: Acute Assessment and plan: no chemical dvt prophylaxis in setting of recent gi bleeding teds/scds anticipate discharge to inpatient rehabilitation facility for skilled PT/OT discussed with DR Molina Subjective Subjective Patient reports: no new complaints, tolerating liquids well, tolerating a regular diet and afebrile; denies shortness of breath Exam Const General: no acute distress, disheveled, frail appearing and ill appearing chron ically Nutritional Appearance: cachectic Orientation: alert, awake and oriented x3 HENMT Head: normal to inspection, normocephalic and atraumatic Face and sinus: normal facial exam Neck Neck: normal visual inspection, full ROM and no JVD Resp Effort & Inspection: normal respiratory effort Auscultation: no rales and no rhonchi Cardio Rate: regular rate and not tachycardic Rhythm: regular rhythm GI Inspection: normal to inspection Palpation: soft and nontender Skin General skin exam: no rashes or lesions noted Neuro General: patient alert, patient awake and patient oriented x3 Extrem General: normal to inspection, full ROM and no pedal edema Objective Last Vital Signs Temp 36.6 C 06/29/23 08:02 Pulse 94 H 06/29/23 08:02 Resp 18 06/29/23 08:02 BP 144/79 H 06/29/23 08:02 Pulse Ox 100 06/29/23 08:02 Laboratory Results - last 24 hr 06/28/23 11:25 Sodium 131 L Potassium 3.8 Chloride 98 Carbon Dioxide 26.0 Anion Gap 7.0 BUN 19 H Creatinine 0.6 L Est GFR (CKD-EPI 2020) 105.15 Glucose 395 H Calcium 8.6
--- NOTE | 2023-06-29 12:36 | PTTR_ITS ---
Date of service: 06/29/23 Time of Service: 10:17 PT Notes Visit Reasons: Dehydration,Electrolyte Imbalance,Diarrhea Inpatient Physical Therapy Treatment Note [facility] Date: 06/29/23 PRECAUTIONS: Fall, standard, activity as tolerated SUBJECTIVE: Patient reports feeling better, especially back feels looser and less painful. OBJECTIVE: Supine in bed, agreeable to therapy. ? PAIN: none reported. VITALS: monitored by nursing staff. ? BED MOBILITY/TRANSFERS? Rolling L/R: independent Supine-sit: independent ? Sit-supine: independent ? Sit-stand: independent ? Stand-sit: independent ? Bed-Chair: SBA ? Chair-bed: SBA ? Therapeutic Exercises ([id number]): Direct one-on-one instruction in therapeutic exercises to develop strength, endurance, range of motion and flexibility. ? Exercises: * TA activation - tactile and verbal cues to locate the correct muscle - x10, 3 second hold, 3 second rest * TA activation with posterior pelvic tilts - x10 * TA activation and posterior pelvic tilts with bridge - manual facilitation of hip extensors - x10 * TA activation and posterior pelvic tilt with Pallof pulldown vs yellow theraband x10 * Seated tricep extension vs yellow theraband with TA activation x10 * Seated hip abduction vs yellow theraband - verbal and visual cues to locate t he correct muscle, repeated verbal cues to correct posture in order to isolate the correct muscle (gluteus medius) and prevent recruitment of hip flexors - x10 Ambulation ? Assistive Device: FWW? Weight bearing: full Assist: SBA ? Distance:? 50 feet ? Deviation: adequate step length, slow nilson, deliberate heel strike / toe off. Reports putting a lot of weight through walker. Reports wanting a FWW for home use. ? Provided skilled instruction in proper exercise performance Provided skilled manual cues to facilitate proper muscle recruitment and/or form. ASSESSMENT:? Patient tolerates therapy well, Reports sitting EOB is more comfortable when he remembers to engage his TA. Previously sitting EOB was painful after a very short period of time. PLAN: Continue global strengthening per plan of care until patient is medically cleared for discharge. TREATMENT CODE/TIME: 31 minutes beginning at 10:17
--- NOTE | 2023-06-29 14:40 | DSE_ITS ---
Date of service: 06/29/23 Time of Service: 14:40 DS: Diagnosis Discharge Diagnosis (1) Severe protein-calorie malnutrition: Status: Acute (2) Ambulatory dysfunction: Status: Acute (3) GI bleed due to NSAIDs: Status: Acute (4) Tobacco use disorder: Status: Acute (5) Diabetes mellitus type 2 in nonobese: Status: Acute (6) Cavitary lesion of lung: Status: Acute (7) Diarrhea: Status: Resolved (8) Electrolyte abnormality: Status: Resolved (9) Dehydration: Status: Resolved Discharge Plan Disposition Condition: Stable Condition: Stable Discharge Details Reason For Visit: Dehydration,Electrolyte Imbalance,Diarrhea Admit Date/Time: 06/26/23 09:17 Admit Provider: Rubin Rojo Attending Provider: Rubin Rojo Primary Care Provider: None,None Hospital Course Hospital Course: This is a 68-year-old male history of possible lung CA, who presented with progressive weakness fatigue, unintentional weight loss over the past 10 weeks as well as diarrhea. Progressive cachexia concerning for malignancy and must consider malnutrition high clinical suspicion for electrolyte derangement and dehydration must also consider infectious process. Although patient denies recent antibiotic use he has been in the healthcare system multiple times over the last year, C. difficile stool antigen was negative. He was given IV hydration, electrolyte replacement, blood sugar management and admitted to hospitalist. He is noncompliant with medical follow-up thus has not had primary care provider or prescriptions for quite some time. Diabetes has been poorly controlled accordingly with a hemoglobin A1c of greater than 13. While on the medical surgical unit he worked with physical therapy and was slowly gaining strength. He remained medically stable. Electrolytes replaced and blood sugar better managed on insulin. Case management has been following and referrals placed for skilled rehabilitation. A bed has been secured at [facility] and rehab and he will be transported by wheelchair van. He is eating and drinking bowels and bladder functioning and hemodynamically stable with no complaints. discharge discussed with DR Molina Home Meds and New Rx's Prescriptions: New insulin aspart U-100 100 unit/mL (3 mL) Insulin Pen 0 unit subcut 0800,1200,1700,2200 Qty: 0 0RF insulin glargine [Lantus Solostar U-100 Insulin] 100 unit/mL (3 mL) Insulin Pen 15 unit subcut DAILY Qty: 0 0RF nicotine 21 mg/24 hr Patch 24 Hour 21 mg transdermal DAILY Qty: 0 0RF insulin aspart U-100 100 unit/mL (3 mL) Insulin Pen 1 - 20 unit subcut 0800,1200,1700 Qty: 0 0RF pantoprazole 40 mg Tablet,Delayed Release (Dr/Ec) 40 mg PO DAILY@0730 Qty: 0 0RF Phlexy-Vits 15 mg- 700 mcg Powder In Packet 1 packet PO TID Qty: 30 0RF No Action clonazepam 0.5 mg Tablet 0.5 mg PO PRN PRNQty: 10 0RF Rx Instructions: Daily prn for panic attack glipizide 5 mg Tablet 5 mg PO BID@0730,1630 Qty: 60 0RF Hold Instructions: does not have script metformin 1,000 mg tablet 1,000 mg PO BID Qty: 60 0RF Discharge Instructions Instructions: Type 2 Diabetes in the Older Adult (DC), Diabetes and Nutrition (DC) Referrals: None,None [Primary Care Provider] - DS: Summary Time Spent with Patient providing and/or coordinating discharge services: Greater than 30 minutes Status at Discharge Functional status at discharge: uses cane/walker Overall status at discharge: patient is not back to baseline Mental Status: mental status grossly normal Speech and Movement: speech and movement normal Mood: congruent mood Affect: normal affect Exam Const General: no acute distress, disheveled, frail appearing and ill appearing chronically Nutritional Appearance: cachectic Orientation: alert, awake and oriented x3 HENMT Head: normal to inspection, normocephalic and atraumatic Face and sinus: normal facial exam Neck Neck: normal visual inspection, full ROM and no JVD Resp Effort & Inspection: normal respiratory effort Auscultation: no rales and no rhonchi Cardio Rate: regular rate and not tachycardic Rhythm: regular rhythm GI Inspection: normal to inspection Palpation: soft and nontender Skin General skin exam: no rashes or lesions noted Neuro General: patient alert, patient awake and patient oriented x3 Extrem General: normal to inspection, full ROM and no pedal edema Psych Mental Status: mental status grossly normal Speech and Movement: speech and movement normal Mood: congruent mood Affect: normal affect DS: Data Vitals/I&O Vitals and I&O: Vital Signs Temperature 36.6 C 06/29/23 08:02 Temperature Source Tympanic 06/29/23 08:02 Pulse 94 H 11/06/23 08:02 Pulse Rhythm Regular 06/29/23 09:06 Pulse 99 H 06/26/23 06:46 Respiratory Rate 18 06/29/23 08:02 Respiratory Effort Normal, Non-Labored 06/29/23 09:06 Respiratory Depth Normal 06/29/23 09:06 Respiratory Pattern Normal 06/29/23 09:06 Blood Pressure 144/79 H 06/29/23 08:02 Blood Pressure Mean 106 06/26/23 06:46 Pulse Oximetry 100 06/29/23 08:02 Oxygen Delivery Method Room Air 06/29/23 08:02 Oxygen Flow Rate 0 06/29/23 08:02 Pain Level 0 06/29/23 08:02 Intake & Output 06/28/23 06/29/23 06/29/23 23:59 11:59 23:59 Intake Total 1500 / 2500 300 / 550 250 / 550 Output Total 2100 / 5025 1950 / 1950 Balance -600 / -2525 -1650 / -1400 250 / -1400 Intake: IV 1009 Oral 490 / 490 300 / 550 250 / 550 Output: Urine 2100 / 5025 1949 / 1950 Other: Urine Color Yellow Yellow Urine Appearance Clear Clear Urine Odor Normal Normal Voiding Methods Urinal Urinal PFSH All Active Problems (Updated 06/29/23 @ 11:52 by Sophie Busby NP) Discharge planning issues (Acute) GI bleed due to NSAIDs (Acute) Ambulatory dysfunction (Acute) Severe protein-calorie malnutrition (Acute) Frailty (Acute) Malnutrition (Acute) Cavitary lesion of lung (Acute) Cachexia (Acute) Tobacco use disorder (Acute) Peripheral neuropathy (Acute) Weakness (Acute) Hyperglycemia (Acute) Cavitary lesion of lung (Acute) Diabetes mellitus type 2 in nonobese (Acute) Medical History Palliative care encounter Enlarged prostate Financial difficulties Need for home health care Failure to thrive in adult Neuropathy Severe anxiety Weight loss Pulmonary infiltrate in right lung on chest x-ray Surgical History Hx of liver transplant Social History Smoking/Tobacco Use Status: Current every day Tobacco Type: cigarettes Years smoked: 55 Tobacco: How many years used: 45 Quit status: not considering quitting Second Hand Exposure: Yes Smoking risk assessment performed?: Yes Alcohol Intake: current Alcohol Intake frequency: holidays/special occasions only Details: 2-4 times per month, 1-2 at a time Drug use: Occasionally Substance use type: marijuana Adopted: No Caregiver/Support person: No Household members: none Housing: apartment Number of Children: 2 number of grandchildren: 2 Communication Needs: Corrective Lenses Education Level: high school Do you need help understanding health information?: Rarely current occupation: Retired Pets and animals: Yes (Fish) Sexually active: Yes Do you think of yourself as: straight/heterosexual Current gender identity: male What is your relationship status?: How often do you talk on the phone with friends or family?: never How often do you get together with friends or relatives?: twice per week Do you belong to any clubs or organized social groups?: no Panel score (0-1 are the most socially isolated patients): 0 What type of physical activity do you participate in: none Bernarda/Taoist: None Special bernarda needs: No Seatbelt use: always Helmet use: Yes Drive intox or ride w/intox fork truck driver: No Do you feel safe at home: Yes Do you feel safe in your relationship?: Yes Additional Social history: [employer] Time Spent with Patient Time Spent with Patient: 45-69 minutes Time was spent: preparing to see the patient(eg.review tests), obtaining and/or reviewing separately otained hiistory, ordering medications,tests, procedures, referring, communicating with other health associate director career services, indepentently interpreting results, counseling the patient and care coordination
[2023-06-29 14:54] VITALS: BP 133/68; PULSE 109; RESP 18; TEMP 36.9; O2SAT 99
--- NOTE | 2023-06-29 15:11 | PDOC.CMDIS ---
Date of service: 06/29/23 Time of Service: 15:11 LACE Index Scoring Tool Questions: Length of Stay (in days): 3 Was the patient admitted via the E.D.?: Yes Comorbidities: Diabetes w/o Complication E.D. Visits: 10 Answers: Total Score: 11 Risk of Readmission: High Risk Care Management Discharge Plan Reason for Hospitalization: weakness, failure to thrive, electrolyte imbalance Discharge Plan: José Miguel will be transferred to [facility] for short term rehab prior top returning home. He will follow up with facility providers and plan of care and transport via [facility] private vehicle. Patient/Family Education Needs: Review of discharge instructions, limitations, activity, follow up plan, discuss Ask Me Three. Services Needed at Discharge: [facility]
--- NOTE | 2023-06-29 16:15 | NUR.NOTE ---
called report to aj acharya nurse at [facility] and rehad @ [phone] Nursing Note:
== END 2023-06-29 15:58 | disposition skilled nursing facility (03) | DRG 640 ==
LOC: ER 09:25 → MS 10:41
PROVIDERS: Nurse Practitioner Acute Care; Admitting Provider Family Medicine; Emergency Provider Emergency Medicine; Visit Provider Family Medicine
DX: E86.0 Dehydration (principal); E43 Unspecified severe protein-calorie malnutrition; Z68.1 Body mass index [BMI] 19.9 or less, adult; Z94.4 Liver transplant status; K92.2 Gastrointestinal hemorrhage, unspecified; C34.11 Malignant neoplasm of upper lobe, right bronchus or lung; R26.2 Difficulty in walking, not elsewhere classified; F17.210 Nicotine dependence, cigarettes, uncomplicated; J98.4 Other disorders of lung; R53.1 Weakness; E11.42 Type 2 diabetes mellitus with diabetic polyneuropathy; F41.9 Anxiety disorder, unspecified; R63.4 Abnormal weight loss; Z91.198 Patient's noncompliance with other medical treatment and regimen for other reason; E11.65 Type 2 diabetes mellitus with hyperglycemia; T39.395A Adverse effect of other nonsteroidal anti-inflammatory drugs [NSAID], initial encounter; N40.0 Benign prostatic hyperplasia without lower urinary tract symptoms; E87.8 Other disorders of electrolyte and fluid balance, not elsewhere classified; R19.7 Diarrhea, unspecified
CPT/HCPCS: 00123; 36415; 74177; 80048; 80053; 80307; 82550; 83690; 87493; 87637; 93005; 96361; 96365; 97110; 97116; 97140; 97162; 97166; 97530; 97535; 99285; 71046; 71260; 80320; 81003; 83735; 84439; 84443; 84484; 85025; 85610; 85730; 93010; 99233; 99239; J3480